=== PATIENT | male | born 1950 | race Caucasian/White ===

== ENCOUNTER 2017-06-24 14:11 | Emergency (ER) | payer MEDICARE ==
[2017-06-24 15:50] LABS: APPEARANCE,URINE Clear (CLEAR); BILIRUBIN,URINE Negative (NEGATIVE); COLOR,URINE Yellow (YELLOW); GLUCOSE, URINE (UA) Negative (NEGATIVE); KETONES,URINE Negative (NEGATIVE); LEUKOCYTE ESTERASE ,URINE Moderate (NEGATIVE); NITRATE,URINE Negative (NEGATIVE); OCCULT BLOOD,URINE Negative (NEGATIVE); PROTEIN,URINE Negative (NEGATIVE)
[2017-06-24 15:56] LABS: AMPHET/METH SCREEN,URINE NEGATIVE (NEGATIVE); BARBITURATE SCREEN, URINE NEGATIVE (NEGATIVE); BENZODIAZEPINES SCREEN,URINE POSITIVE (NEGATIVE); CANNABINOID SCREEN,URINE NEGATIVE (NEGATIVE); COCAINE SCREEN,URINE NEGATIVE (NEGATIVE); OPIATE SCREEN,URINE NEGATIVE (NEGATIVE); PHENCYCLIDINE SCREEN,URINE NEGATIVE (NEGATIVE)
[2017-06-24 16:01] LABS: RBC,URINE None Seen /HPF (0-1)
[2017-06-24 16:02] LABS: BACTERIA,URINE None Seen /HPF (None Seen); SQUAMOUS EPITHELIAL CELL,UR 0-2 /HPF (0-2)
[2017-06-24] MEDS ORDERED: LIDOCAINE 5% TOPICAL PATCH TP ONE (16:06)
[2017-06-24] MEDS ORDERED: KETOROLAC TROMETHAMINE 30MG/ML ONE (16:06)
== END 2017-06-24 16:24 | disposition home or self-care (01) ==
LOC: EDH 14:11
DX: N30.00 Acute cystitis without hematuria (principal); M54.42 Lumbago with sciatica, left side; M54.41 Lumbago with sciatica, right side; J45.909 Unspecified asthma, uncomplicated; M10.9 Gout, unspecified; Z88.8 Allergy status to other drugs, medicaments and biological substances
CPT/HCPCS: 74176; 80305; 81001; 96372; 99285; J1885

== ENCOUNTER → 2017-08-11 | Outpatient (CLI) | payer MEDICARE | END | disposition home or self-care (01) | LOC: RAH 09:20 | PROVIDERS: ATTEND Family Medicine | DX: M47.896 Other spondylosis, lumbar region (principal); J45.909 Unspecified asthma, uncomplicated | CPT/HCPCS: 71046; 72100 ==

== ENCOUNTER 2018-07-01 17:41 | Emergency (ER) | payer MEDICARE ==
[~2018-07-01 17:41] MED LIST: ALBU18HF7 IH; ATOR10TA69 PO; GABA-531 PO; HYDR-4060 PO; OMEP20TA25 PO; ROPI0.5T5 PO; ZOLP5TAB2 PO
[2018-07-01 18:22] LABS: BASOPHILS % (AUTO) 1.6 % (0.0-5.0); EOSINOPHILS % (AUTO) 4.6 % (0.0-8.0); HEMATOCRIT 38.4 % (42-54); LYMPHOCYTES % (AUTO) 32.2 % (21.0-51.0); MEAN CORPUSCULAR HEMOGLOBIN 29.3 pg (27.0-33.0); MEAN CORPUSCULAR HGB CONC 34.1 g/dL (32.0-36.0); MEAN CORPUSCULAR VOLUME 85.9 fL (79-99); NEUTROPHILS % (AUTO) 54.6 % (40.0-77.0); PLATELET COUNT (AUTO) 294 K/uL (130-400); RED BLOOD CELL COUNT(AUTO) 4.47 MIL/uL (4.50-6.20); RED CELL DISTRIBUTION WIDTH 14.4 % (11.0-15.5); WHITE BLOOD COUNT (AUTO) 8.3 K/uL (4.8-10.8)
[2018-07-01 18:33] LABS: CREATININE 1.1 mg/dL (0.5-1.5); POTASSIUM 3.6 mmol/L (3.5-5.1)
[2018-07-01 18:38] LABS: ALBUMIN 3.4 g/dL (3.5-5.0); TOTAL PROTEIN, SERUM 6.5 g/dL (6.0-8.3)
[2018-07-01 18:39] LABS: INR 0.96 (0.85-1.15); PARTIAL THROMBOPLASTIN TIME 19.4 SEC (26.3-35.5); PROTHROMBIN TIME 10.1 SEC (9.6-11.6)
[2018-07-01] MEDS ORDERED: MORPHINE SULFATE 2 MG/ML 1ML SYG ONE (18:47)
[2018-07-01 18:54] LABS: APPEARANCE,URINE Clear (CLEAR); BILIRUBIN,URINE Negative (NEGATIVE); COLOR,URINE Yellow (YELLOW); GLUCOSE, URINE (UA) Negative (NEGATIVE); KETONES,URINE Negative (NEGATIVE); LEUKOCYTE ESTERASE ,URINE Trace (NEGATIVE); NITRATE,URINE Negative (NEGATIVE); OCCULT BLOOD,URINE Negative (NEGATIVE); PROTEIN,URINE Negative (NEGATIVE)
[2018-07-01 19:32] LABS: BACTERIA,URINE Rare /HPF (None Seen); MUCUS,URINE Moderate LPF (None Seen); RBC,URINE None Seen /HPF (0-1); SQUAMOUS EPITHELIAL CELL,UR 0-2 /HPF (0-2)
[2018-07-01] MEDS ORDERED: HYDROCODONE/ACETAMINOPHEN 5/325 MG TAB ONE (20:57)
== END 2018-07-01 21:15 | disposition home or self-care (01) ==
LOC: EDH 17:41
DX: R10.31 Right lower quadrant pain (principal); M54.5 Low back pain; J98.4 Other disorders of lung; M25.551 Pain in right hip; I10 Essential (primary) hypertension; E78.5 Hyperlipidemia, unspecified; J45.909 Unspecified asthma, uncomplicated; Z91.041 Radiographic dye allergy status
CPT/HCPCS: 36415; 71045; 74176; 80053; 81001; 82550; 83690; 84484; 85025; 85610; 85730; 93005; 96374

== ENCOUNTER 2018-07-02 10:30 | Emergency (ER) | payer MEDICARE ==
[2018-07-02] MEDS ORDERED: KETOROLAC TROMETHAMINE 30MG/ML ONE (11:01)
[2018-07-02 11:15] LABS: APPEARANCE,URINE Clear (CLEAR); BASOPHILS % (AUTO) 1.8 % (0.0-5.0); BILIRUBIN,URINE Negative (NEGATIVE); COLOR,URINE Yellow (YELLOW); EOSINOPHILS % (AUTO) 3.9 % (0.0-8.0); GLUCOSE, URINE (UA) Negative (NEGATIVE); HEMATOCRIT 39.1 % (42-54); KETONES,URINE Negative (NEGATIVE); LEUKOCYTE ESTERASE ,URINE Negative (NEGATIVE); LYMPHOCYTES % (AUTO) 22.5 % (21.0-51.0); MEAN CORPUSCULAR HGB CONC 34.7 g/dL (32.0-36.0); MEAN CORPUSCULAR VOLUME 86.5 fL (79-99); MONOCYTES % (AUTO) 6.9 % (3.0-13.0); NEUTROPHILS % (AUTO) 64.9 % (40.0-77.0); NITRATE,URINE Negative (NEGATIVE); NUCLEATED RED BLOOD CELLS 0.3 % (0.0-0.19); OCCULT BLOOD,URINE Negative (NEGATIVE); PLATELET COUNT (AUTO) 300 K/uL (130-400); PROTEIN,URINE Negative (NEGATIVE); RED BLOOD CELL COUNT(AUTO) 4.53 MIL/uL (4.50-6.20); WHITE BLOOD COUNT (AUTO) 7.2 K/uL (4.8-10.8)
[2018-07-02 11:23] LABS: AMPHET/METH SCREEN,URINE NEGATIVE (NEGATIVE); BARBITURATE SCREEN, URINE NEGATIVE (NEGATIVE); BENZODIAZEPINES SCREEN,URINE NEGATIVE (NEGATIVE); CANNABINOID SCREEN,URINE NEGATIVE (NEGATIVE); COCAINE SCREEN,URINE NEGATIVE (NEGATIVE); OPIATE SCREEN,URINE POSITIVE (NEGATIVE); PHENCYCLIDINE SCREEN,URINE NEGATIVE (NEGATIVE)
[2018-07-02 11:24] LABS: CREATININE 0.9 mg/dL (0.5-1.5); POTASSIUM 3.9 mmol/L (3.5-5.1)
[2018-07-02 11:29] LABS: ALBUMIN 3.4 g/dL (3.5-5.0); BILIRUBIN,TOTAL 1.5 mg/dL (0.2-1.0); TOTAL PROTEIN, SERUM 6.5 g/dL (6.0-8.3)
== END 2018-07-02 12:56 | disposition home or self-care (01) ==
LOC: EDH 10:30
DX: R10.9 Unspecified abdominal pain (principal); R63.0 Anorexia; I10 Essential (primary) hypertension; E78.5 Hyperlipidemia, unspecified; J45.909 Unspecified asthma, uncomplicated; I25.2 Old myocardial infarction; J44.9 Chronic obstructive pulmonary disease, unspecified; Z91.041 Radiographic dye allergy status; Z79.899 Other long term (current) drug therapy
CPT/HCPCS: 36415; 80053; 80305; 81003; 84484; 85025; 93005; 96374; 99285; J1885

== ENCOUNTER 2018-11-30 10:55 | Inpatient (IN) | payer MEDICARE ==
[~2018-11-30] VITALS: Ht 172.7 cm; Wt 98.6 kg
[2018-11-30] MEDS: METHYLPREDNISOLONE SOD SUCC 125MG/2ML VIAL IV SCH ×2 (03:00→15:00)
[2018-11-30] MEDS ORDERED: METHYLPREDNISOLONE SOD SUCC 125MG/2ML VIAL ONE (11:17)
[2018-11-30 11:18] LABS: BASOPHILS % (AUTO) 0.8 % (0.0-5.0); EOSINOPHILS % (AUTO) 1.8 % (0.0-8.0); HEMATOCRIT 36.5 % (42-54); LYMPHOCYTES % (AUTO) 11.1 % (21.0-51.0); MEAN CORPUSCULAR HEMOGLOBIN 29.6 pg (27.0-33.0); MEAN CORPUSCULAR VOLUME 87.2 fL (79-99); MONOCYTES % (AUTO) 6.7 % (3.0-13.0); NEUTROPHILS % (AUTO) 79.6 % (40.0-77.0); NUCLEATED RED BLOOD CELLS 0.1 % (0.0-0.19); PLATELET COUNT (AUTO) 277 K/uL (130-400); RED BLOOD CELL COUNT(AUTO) 4.18 MIL/uL (4.50-6.20); RED CELL DISTRIBUTION WIDTH 15.1 % (11.0-15.5); WHITE BLOOD COUNT (AUTO) 19.5 K/uL (4.8-10.8)
[2018-11-30] MEDS ORDERED: IPRATROPIUM/ALBUTEROL SULFATE 3 ML SOLUTION IH ONE ×2 (11:23→15:47)
[2018-11-30 11:39] LABS: INR 0.93 (0.85-1.15); PARTIAL THROMBOPLASTIN TIME 22.1 SEC (26.3-35.5); PROTHROMBIN TIME 9.8 SEC (9.6-11.6)
[2018-11-30 11:40] LABS: POTASSIUM 4.1 mmol/L (3.5-5.1)
[2018-11-30 11:45] LABS: ALBUMIN 3.2 g/dL (3.5-5.0); BILIRUBIN,TOTAL 0.6 mg/dL (0.2-1.0); TOTAL PROTEIN, SERUM 6.3 g/dL (6.0-8.3)
[2018-11-30 12:10] LABS: APPEARANCE,URINE Clear (CLEAR); BILIRUBIN,URINE Negative (NEGATIVE); COLOR,URINE Yellow (YELLOW); GLUCOSE, URINE (UA) Negative (NEGATIVE); KETONES,URINE Negative (NEGATIVE); LEUKOCYTE ESTERASE ,URINE Negative (NEGATIVE); NITRATE,URINE Negative (NEGATIVE); OCCULT BLOOD,URINE Negative (NEGATIVE); PROTEIN,URINE Negative (NEGATIVE)
[2018-11-30 12:44] LABS: B-TYPE NATRIURETIC PEPTIDE 18 pg/mL (0-100)
[2018-11-30] MEDS ORDERED: VANCOMYCIN 1GM+NS 250ML 250 ML IV ONE (13:01)
[2018-11-30] MEDS ORDERED: ZOSYN 3.375GM+NS 50ML 50 ML IV ONE (14:03)
[2018-11-30] MEDS ORDERED: GUAIFENESIN-DM 200/20 MG 10 ML PO PRN (15:00)
[2018-11-30] MEDS ORDERED: DIPHENHYDRAMINE HCL 25 MG CAPSULE PO PRN (15:00)
[2018-11-30] MEDS ORDERED: ZOLPIDEM TARTRATE 5 MG TAB PO PRN (15:00)
[2018-11-30] MEDS ORDERED: ACETAMINOPHEN-CODEINE 300/30MG TAB PO PRN (15:00)
[2018-11-30] MEDS ORDERED: MORPHINE SULFATE 2 MG/ML 1ML SYG IV PRN (15:00)
[2018-11-30] MEDS ORDERED: POTASSIUM CHLORIDE 20 MEQ ERTAB PO PRN (15:00)
[2018-11-30] MEDS ORDERED: NITROGLYCERIN 0.4 MG SL TAB SL PRN (15:00)
[2018-11-30] MEDS ORDERED: ONDANSETRON HCL 4 MG/2 ML VIAL IV PRN (15:00)
[2018-11-30] MEDS ORDERED: POTASSIUM CHLORIDE 20MEQ/100ML 100 ML IV PRN (15:00)
[2018-11-30] MEDS ORDERED: HYDRALAZINE HCL 20 MG/ML VIAL IV PRN (15:00)
[2018-11-30] MEDS ORDERED: ACETAMINOPHEN 325 MG TAB PO PRN ×2 (15:00)
[2018-11-30] MEDS ORDERED: POTASSIUM CHLORIDE 10% ELIXIR 20 MEQ/15 ML UDCUP PO PRN (15:00)
[2018-11-30] MEDS ORDERED: VANCOMYCIN PROTOCOL PER PHARMACY IV PRN (15:00)
[2018-11-30] MEDS ORDERED: MAGNESIUM 2GM PREMIX 50ML 50 ML IV PRN (15:00)
[2018-11-30] MEDS ORDERED: DiphenhydrAMINE HCL 50 MG/ML VIAL IV PRN (15:00)
[2018-11-30] MEDS ORDERED: LACTULOSE 20 GM/30 ML UDCUP PO PRN (15:00)
[2018-11-30] MEDS ORDERED: MAG HYDROX/AL HYDROX/SIMETH ES 30 ML SUSP UDCUP PO PRN (15:00)
[2018-11-30] MEDS ORDERED: COMPOUND IV REFRIGERATED 1 EACH IVSOLN MISC PRN (15:45)
[2018-11-30] MEDS: INSULIN HUMULIN R 100 UNIT/ML 3ML SQ SCH ×2 (16:30→21:00)
[2018-11-30 17:05] VITALS: BP 119/78
[2018-11-30 19:00] VITALS: BP 136/80
[2018-11-30] MEDS ORDERED: GABA300S PO (19:07)
[2018-11-30] MEDS ORDERED: ASPI-555 PO (19:07)
[2018-11-30] MEDS ORDERED: QUET50TA55 PO (19:07)
[2018-11-30] MEDS ORDERED: ICOS1CAP PO (19:07)
[2018-11-30] MEDS ORDERED: ALLO300T2 PO (19:07)
[2018-11-30] MEDS ORDERED: ROSU10TA28 PO (19:07)
[2018-11-30] MEDS ORDERED: ESCI20TA36 PO (19:07)
[2018-11-30] MEDS: BUDESONIDE 0.5 MG/2 ML INH IH SCH (19:12)
[2018-11-30] MEDS: IPRATROPIUM/ALBUTEROL SULFATE 3 ML SOLUTION IH SCH ×2 (19:12→22:37)
[2018-11-30] MEDS: ATORVASTATIN CALCIUM 10 MG TABLET PO SCH (22:21)
[2018-11-30] MEDS: ROPINIROLE HCL 0.25 MG TABLET PO SCH (22:21)
[2018-11-30] MEDS: ZOSYN 3.375GM+NS 50ML 50 ML IV SCH (22:22)
[2018-11-30] MEDS: VANCOMYCIN 1.5 GM in SODIUM CHLORIDE 0.9% 250 ML IV SCH (22:35)
[2018-12-01] VITALS: BP 139/80
[2018-12-01] MEDS: IPRATROPIUM/ALBUTEROL SULFATE 3 ML SOLUTION IH SCH ×6 (01:36→21:48)
[2018-12-01] MEDS ORDERED: METHYLPREDNISOLONE SOD SUCC 40MG/ML 1ML ONE (02:51)
[2018-12-01] MEDS ORDERED: METHYLPREDNISOLONE SOD SUCC 40MG/ML 1ML IVP SCH (03:00)
[2018-12-01 04:00] VITALS: BP_SYST 113; BP_SYST 139; BP_DIAS 66; BP_DIAS 95
[2018-12-01 05:08] LABS: BASOPHILS % (AUTO) 0.4 % (0.0-5.0); HEMATOCRIT 32.9 % (42-54); MEAN CORPUSCULAR HEMOGLOBIN 30.8 pg (27.0-33.0); MEAN CORPUSCULAR HGB CONC 34.4 g/dL (32.0-36.0); MEAN CORPUSCULAR VOLUME 89.4 fL (79-99); MONOCYTES % (AUTO) 2.7 % (3.0-13.0); NEUTROPHILS % (AUTO) 90.9 % (40.0-77.0); PLATELET COUNT (AUTO) 284 K/uL (130-400); RED BLOOD CELL COUNT(AUTO) 3.68 MIL/uL (4.50-6.20); RED CELL DISTRIBUTION WIDTH 15.2 % (11.0-15.5); WHITE BLOOD COUNT (AUTO) 13.1 K/uL (4.8-10.8)
[2018-12-01] MEDS: ZOSYN 3.375GM+NS 50ML 50 ML IV SCH ×3 (05:10→22:45)
[2018-12-01 05:27] LABS: ALANINE AMINOTRANSFERASE 28 U/L (12-78); ALBUMIN 3.1 g/dL (3.5-5.0); ASPARTATE AMINOTRANSFERASE 12 U/L (10-37); BILIRUBIN,TOTAL 0.5 mg/dL (0.2-1.0); CARBON DIOXIDE 25 mmol/L (21-32); CHLORIDE 106 mmol/L (101-111); CREATININE 1.2 mg/dL (0.5-1.5); GLOMERULAR FILTR. RATE CALC 64 mL/min (>60); GLUCOSE,RANDOM 311 mg/dL (70-105); PHOSPHORUS 2.9 mg/dL (2.5-4.9); POTASSIUM 4.1 mmol/L (3.5-5.1); SODIUM SERUM 140 mmol/L (136-145); TOTAL PROTEIN, SERUM 6.3 g/dL (6.0-8.3); UREA NITROGEN, BLOOD 17 mg/dL (7-18)
[2018-12-01 05:29] LABS: B-TYPE NATRIURETIC PEPTIDE 40 pg/mL (0-100)
[2018-12-01 05:38] LABS: INR 0.94 (0.85-1.15); PARTIAL THROMBOPLASTIN TIME 21.3 SEC (26.3-35.5); PROTHROMBIN TIME 9.7 SEC (9.6-11.6)
[2018-12-01] MEDS: BUDESONIDE 0.5 MG/2 ML INH IH SCH ×2 (06:52→18:48)
[2018-12-01] MEDS: INSULIN HUMULIN R 100 UNIT/ML 3ML SQ SCH ×4 (07:00→22:48)
[2018-12-01 08:03] VITALS: BP 121/78
[2018-12-01] MEDS: VANCOMYCIN 1.5 GM in SODIUM CHLORIDE 0.9% 250 ML IV SCH ×2 (09:35→22:46)
[2018-12-01] MEDS: PANTOPRAZOLE SODIUM 40 MG TABLET.DR PO SCH (09:37)
[2018-12-01 12:00] VITALS: BP 127/68
--- NOTE | 2018-12-01 15:35 | NUR ---
DCP CM met with pt discussed dc plans. Pt is independent prior to admission, lives at home w/daughter. Pt has a nebulizer machine. Denies any other equipments/services. Feels safe to go back home, daughter able to assist with transportation and needs as necessary. DC plan to home once stable. CM to cont to follow up. Addendum: 12/01/18 at 1536 by NICOLE COOLEY LVN CM Amended: Links added.
[2018-12-01 16:24] VITALS: BP 158/81
[2018-12-01 20:00] VITALS: BP 133/79
[2018-12-01] MEDS: METHYLPREDNISOLONE SOD SUCC 40MG/ML 1ML IVP SCH (22:44)
[2018-12-01] MEDS: ROPINIROLE HCL 0.25 MG TABLET PO SCH (22:48)
[2018-12-01] MEDS: ATORVASTATIN CALCIUM 10 MG TABLET PO SCH (22:48)
[2018-12-02] VITALS (7 sets, daily range): BP systolic 112–161; BP diastolic 57–84
[2018-12-02] MEDS: IPRATROPIUM/ALBUTEROL SULFATE 3 ML SOLUTION IH SCH ×6 (02:50→21:09)
[2018-12-02] MEDS: ZOSYN 3.375GM+NS 50ML 50 ML IV SCH ×3 (05:21→21:41)
[2018-12-02 05:37] LABS: BASOPHILS % (AUTO) 0.3 % (0.0-5.0); HEMATOCRIT 34.1 % (42-54); LYMPHOCYTES % (AUTO) 4.6 % (21.0-51.0); MEAN CORPUSCULAR HEMOGLOBIN 29.6 pg (27.0-33.0); MEAN CORPUSCULAR HGB CONC 33.8 g/dL (32.0-36.0); MEAN CORPUSCULAR VOLUME 87.5 fL (79-99); MONOCYTES % (AUTO) 2.5 % (3.0-13.0); NEUTROPHILS % (AUTO) 92.6 % (40.0-77.0); PLATELET COUNT (AUTO) 300 K/uL (130-400); RED BLOOD CELL COUNT(AUTO) 3.89 MIL/uL (4.50-6.20); RED CELL DISTRIBUTION WIDTH 15.9 % (11.0-15.5); WHITE BLOOD COUNT (AUTO) 23.3 K/uL (4.8-10.8)
[2018-12-02 05:51] LABS: CREATININE 1.1 mg/dL (0.5-1.5); POTASSIUM 4.4 mmol/L (3.5-5.1)
[2018-12-02] MEDS: BUDESONIDE 0.5 MG/2 ML INH IH SCH ×2 (06:18→18:37)
[2018-12-02] MEDS: INSULIN HUMULIN R 100 UNIT/ML 3ML SQ SCH ×4 (06:40→21:44)
[2018-12-02] MEDS: METHYLPREDNISOLONE SOD SUCC 40MG/ML 1ML IVP SCH (10:01)
[2018-12-02] MEDS: PANTOPRAZOLE SODIUM 40 MG TABLET.DR PO SCH (10:01)
[2018-12-02] MEDS: VANCOMYCIN 1.5 GM in SODIUM CHLORIDE 0.9% 250 ML IV SCH ×2 (10:03→21:41)
[2018-12-02] MEDS: PREDNISONE 10 MG TABLET PO SCH (18:00)
[2018-12-02] MEDS: ROPINIROLE HCL 0.25 MG TABLET PO SCH (21:42)
[2018-12-02] MEDS: ATORVASTATIN CALCIUM 10 MG TABLET PO SCH (21:42)
[2018-12-03] MEDS: IPRATROPIUM/ALBUTEROL SULFATE 3 ML SOLUTION IH SCH ×4 (01:11→14:16)
[2018-12-03 03:00] VITALS: BP 108/71
[2018-12-03] MEDS: ZOSYN 3.375GM+NS 50ML 50 ML IV SCH ×2 (04:44→13:54)
[2018-12-03] MEDS: INSULIN HUMULIN R 100 UNIT/ML 3ML SQ SCH ×3 (05:51→16:46)
[2018-12-03 06:11] LABS: BASOPHILS % (AUTO) 0.2 % (0.0-5.0); HEMATOCRIT 32.3 % (42-54); LYMPHOCYTES % (AUTO) 13.2 % (21.0-51.0); MEAN CORPUSCULAR HEMOGLOBIN 30.5 pg (27.0-33.0); MEAN CORPUSCULAR HGB CONC 34.6 g/dL (32.0-36.0); MEAN CORPUSCULAR VOLUME 88.1 fL (79-99); MONOCYTES % (AUTO) 7.5 % (3.0-13.0); NEUTROPHILS % (AUTO) 79.1 % (40.0-77.0); NUCLEATED RED BLOOD CELLS 0.1 % (0.0-0.19); PLATELET COUNT (AUTO) 311 K/uL (130-400); RED BLOOD CELL COUNT(AUTO) 3.66 MIL/uL (4.50-6.20); WHITE BLOOD COUNT (AUTO) 17.6 K/uL (4.8-10.8)
[2018-12-03 06:15] LABS: CREATININE 1.1 mg/dL (0.5-1.5); POTASSIUM 3.8 mmol/L (3.5-5.1)
[2018-12-03] MEDS: BUDESONIDE 0.5 MG/2 ML INH IH SCH ×2 (06:25→06:35)
[2018-12-03] MEDS ORDERED: LEVOTHYROXINE 100 MCG TABLET ONE (06:48)
[2018-12-03 07:30] VITALS: BP 116/60
[2018-12-03] MEDS ORDERED: METHYLPREDNISOLONE SOD SUCC 40MG/ML 1ML IVP SCH (09:00)
[2018-12-03] MEDS: PREDNISONE 10 MG TABLET PO SCH (10:09)
[2018-12-03] MEDS: PANTOPRAZOLE SODIUM 40 MG TABLET.DR PO SCH (10:09)
[2018-12-03] MEDS: VANCOMYCIN 1.5 GM in SODIUM CHLORIDE 0.9% 250 ML IV SCH (10:10)
[2018-12-03 11:00] VITALS: BP 113/61
[2018-12-03 16:00] VITALS: BP 156/88
[2018-12-03] MEDS ORDERED: PRED10TA3 PO (17:12)
[2018-12-03] MEDS ORDERED: PRED20TA3 PO (17:12)
[2018-12-03] MEDS ORDERED: PRED2.5T PO (17:12)
[2018-12-03] MEDS ORDERED: PRED5SOL PO (17:12)
[2018-12-03] MEDS ORDERED: LEVO750T46 PO (17:13)
--- NOTE | 2018-12-03 19:45 | NUR ---
Pt d/c safely home, accompanied with family members, prescription given for levofloxacin 750mg daily for 3 days and medrol pack as directed, pt verbalized understanding of d/c instruction, all questions and concerns addressed.
[2018-12-04] MEDS ORDERED: PREDNISONE 20 MG TABLET PO SCH (09:00)
[2018-12-04] MEDS ORDERED: LEVOFLOXACIN 500 MG TABLET PO SCH (09:00)
[2018-12-06] MEDS ORDERED: PREDNISONE 5 MG TABLET PO SCH (09:00)
[2018-12-08] MEDS ORDERED: PREDNISONE 10 MG TABLET PO SCH (09:00)
[2018-12-10] MEDS ORDERED: PREDNISONE 5 MG TABLET PO SCH (09:00)
[2018-12-12] MEDS ORDERED: PREDNISONE 5 MG TABLET PO SCH (09:00)
== END 2018-12-03 18:25 | disposition home or self-care (01) | DRG 190 ==
LOC: EDH 10:55 → OBSVTOIN 15:00 → EDHIP 15:00 → 3CH 16:38
PROVIDERS: ADMIT Internal Medicine Pulmonary Disease; ATTEND Internal Medicine Pulmonary Disease
DX: J44.0 Chronic obstructive pulmonary disease with (acute) lower respiratory infection (principal); J18.9 Pneumonia, unspecified organism; J44.1 Chronic obstructive pulmonary disease with (acute) exacerbation; I25.10 Atherosclerotic heart disease of native coronary artery without angina pectoris; I10 Essential (primary) hypertension; E78.5 Hyperlipidemia, unspecified; G25.81 Restless legs syndrome; Z77.090 Contact with and (suspected) exposure to asbestos; M10.9 Gout, unspecified; Z87.891 Personal history of nicotine dependence; Z91.19 Patient's noncompliance with other medical treatment and regimen; Z91.041 Radiographic dye allergy status; Z84.89 Family history of other specified conditions
CPT/HCPCS: 36415; 71045; 71250; 78580; 80048; 80053; 80202; 81003; 82550; 82948; 83605; 83735; 83880; 84100; 84145; 84484; 85025; 85610; 85730; 87040; 87071; 87205; 87804; 93005; 93970; 94640; 94664; A9540; G0378; J1815; J2543; J2920; J2930; J3370; J7030; J7512

== ENCOUNTER 2019-03-06 11:19 | Emergency (ER) | payer MEDICARE ==
[~2019-03-06 11:19] MED LIST changes: -ALBU18HF7 IH; +ALLO300T2 PO; +ASPI-555 PO; -ATOR10TA69 PO; +ESCI20TA36 PO; -GABA-531 PO; +GABA300S PO; -HYDR-4060 PO; +ICOS1CAP PO; +LEVO750T46 PO; -OMEP20TA25 PO; +PRED10TA3 PO; +PRED2.5T PO; +PRED20TA3 PO; +PRED5SOL PO; +QUET50TA55 PO; -ROPI0.5T5 PO; +ROSU10TA28 PO; -ZOLP5TAB2 PO
[2019-03-06] MEDS ORDERED: KETOROLAC TROMETHAMINE 60 MG/2 ML VIAL ONE (12:33)
== END 2019-03-06 13:30 | disposition home or self-care (01) ==
LOC: EDH 11:19
DX: S80.02XA Contusion of left knee, initial encounter (principal); J44.9 Chronic obstructive pulmonary disease, unspecified; E78.5 Hyperlipidemia, unspecified; I10 Essential (primary) hypertension; I25.10 Atherosclerotic heart disease of native coronary artery without angina pectoris; G25.81 Restless legs syndrome; Z87.891 Personal history of nicotine dependence; Z91.041 Radiographic dye allergy status; X58.XXXA Exposure to other specified factors, initial encounter; Y93.89 Activity, other specified; Y92.098 Other place in other non-institutional residence as the place of occurrence of the external cause; Y99.8 Other external cause status
CPT/HCPCS: 29505; 73562; 96372; 99284; J1885

== ENCOUNTER 2019-05-02 04:42 | Observation (INO) | payer MEDICARE ==
[~2019-05-02] VITALS: Ht 172.7 cm; Wt 99.9 kg
[~2019-05-02 04:42] MED LIST changes: +ASPI-1005 PO; -ASPI-555 PO; +ATOR40TA69 PO; -ICOS1CAP PO; -LEVO750T46 PO; +LISI-617 PO; +METO25 PO; -PRED10TA3 PO; -PRED2.5T PO; -PRED20TA3 PO; -PRED5SOL PO; -ROSU10TA28 PO; +TICA90TA PO
[2019-05-02] MEDS ORDERED: METHYLPREDNISOLONE SOD SUCC 125MG/2ML VIAL ONE (05:06)
[2019-05-02 05:11] LABS: BASOPHILS % (AUTO) 0.8 % (0.0-5.0); EOSINOPHILS % (AUTO) 3.6 % (0.0-8.0); HEMATOCRIT 34.5 % (42-54); LYMPHOCYTES % (AUTO) 21.9 % (21.0-51.0); MEAN CORPUSCULAR HEMOGLOBIN 28.9 pg (27.0-33.0); MEAN CORPUSCULAR HGB CONC 32.5 g/dL (32.0-36.0); MEAN CORPUSCULAR VOLUME 88.9 fL (79-99); MONOCYTES % (AUTO) 4.4 % (3.0-13.0); NEUTROPHILS % (AUTO) 68.8 % (40.0-77.0); PLATELET COUNT (AUTO) 360 K/uL (130-400); RED BLOOD CELL COUNT(AUTO) 3.88 MIL/uL (4.50-6.20); RED CELL DISTRIBUTION WIDTH 14.4 % (11.0-15.5); WHITE BLOOD COUNT (AUTO) 7.8 K/uL (4.8-10.8)
[2019-05-02 05:20] LABS: CREATININE 1.2 mg/dL (0.5-1.5); POTASSIUM 3.6 mmol/L (3.5-5.1)
[2019-05-02 05:22] LABS: INR 0.93 (0.85-1.15); PARTIAL THROMBOPLASTIN TIME 21.5 SEC (26.3-35.5); PROTHROMBIN TIME 10.1 SEC (9.6-11.6)
[2019-05-02 05:25] LABS: ALBUMIN 3.3 g/dL (3.5-5.0); BILIRUBIN,TOTAL 0.6 mg/dL (0.2-1.0); TOTAL PROTEIN, SERUM 6.4 g/dL (6.0-8.3)
[2019-05-02 05:32] LABS: B-TYPE NATRIURETIC PEPTIDE 70 pg/mL (0-100)
[2019-05-02] MEDS ORDERED: IPRATROPIUM/ALBUTEROL SULFATE 3 ML SOLUTION IH ONE ×2 (06:14→10:16)
[2019-05-02] MEDS: METHYLPREDNISOLONE SOD SUCC 125MG/2ML VIAL IVP SCH ×3 (07:00→17:47)
[2019-05-02] MEDS: ENOXAPARIN SODIUM 40 MG/0.4 ML SYRINGE SQ SCH ×2 (09:00→21:11)
[2019-05-02] MEDS: FAMOTIDINE/PF 20 MG/2 ML VIAL IV SCH ×2 (09:00→21:11)
[2019-05-02] MEDS ORDERED: ENOXAPARIN SODIUM 40 MG/0.4 ML SYRINGE SQ ONE (10:21)
[2019-05-02] MEDS: IPRATROPIUM/ALBUTEROL SULFATE 3 ML SOLUTION IH SCH ×3 (10:21→23:32)
[2019-05-02] MEDS ORDERED: FAMOTIDINE/PF 20 MG/2 ML VIAL IV ONE (10:22)
[2019-05-02] MEDS: GABAPENTIN 300 MG CAPSULE PO SCH (17:00)
[2019-05-02] MEDS ORDERED: METHYLPREDNISOLONE SOD SUCC 40MG/ML 1ML ONE (17:41)
[2019-05-02] MEDS ORDERED: GABAPENTIN 300 MG CAPSULE ONE (17:54)
[2019-05-02 19:43] VITALS: BP 142/77
[2019-05-02] MEDS ORDERED: ATORVASTATIN CALCIUM 40 MG TABLET PO SCH (21:00)
[2019-05-02] MEDS ORDERED: ALLOPURINOL 300 MG TABLET PO SCH (21:00)
[2019-05-02] MEDS ORDERED: QUETIAPINE FUMARATE 25 MG TAB PO SCH (21:00)
[2019-05-02] MEDS: TICAGRELOR 90 MG TABLET PO SCH (21:10)
[2019-05-02] MEDS: METOPROLOL TARTRATE 25 MG TAB PO SCH (21:10)
[2019-05-02 23:14] VITALS: BP 108/58
[2019-05-03] MEDS: METHYLPREDNISOLONE SOD SUCC 125MG/2ML VIAL IVP SCH ×2 (01:36→05:48)
[2019-05-03 03:37] VITALS: BP 100/49
[2019-05-03] MEDS ORDERED: PNEUMOCOCCAL VACCINE POLYVALENT 0.5 ML/VIAL [PPV] IM ONE (05:45)
[2019-05-03] MEDS: GABAPENTIN 300 MG CAPSULE PO SCH ×2 (05:49→11:34)
[2019-05-03] MEDS: IPRATROPIUM/ALBUTEROL SULFATE 3 ML SOLUTION IH SCH ×2 (06:13→10:45)
[2019-05-03] MEDS ORDERED: PNEUMOCOCCAL VACCINE POLYVALENT 0.5 ML/VIAL [PPV] IM SCH (06:15)
[2019-05-03 07:34] VITALS: BP 111/67
--- NOTE | 2019-05-03 07:45 | NUR ---
ASSESSMENT PT IS AAOX3 DENIES CP DENIES SOB DENIES NV NO COMPLAINTS RESTING IN BED. BREATHING PATTERN IS EVEN AND UNLABORED. CALL LIGHT WITHIN REACH.
[2019-05-03] MEDS: METOPROLOL TARTRATE 25 MG TAB PO SCH (07:46)
[2019-05-03] MEDS: TICAGRELOR 90 MG TABLET PO SCH (07:46)
[2019-05-03] MEDS: ENOXAPARIN SODIUM 40 MG/0.4 ML SYRINGE SQ SCH (07:47)
[2019-05-03] MEDS: FAMOTIDINE/PF 20 MG/2 ML VIAL IV SCH (07:47)
[2019-05-03] MEDS ORDERED: LISINOPRIL 5 MG TABLET PO SCH (09:00)
[2019-05-03] MEDS ORDERED: CITALOPRAM 20 MG TABLET PO SCH (09:00)
[2019-05-03] MEDS ORDERED: ASPIRIN 81MG TAB.CHEW PO SCH (09:00)
--- NOTE | 2019-05-03 10:52 | NUR ---
Status Case discussed w/ [facility]. States will order home O2 eval and possible dc. CD
[2019-05-03 11:35] VITALS: BP 137/62
[2019-05-03] MEDS ORDERED: FLU VACC QS2019-20 36MOS UP/PF 60 MCG/0.5 ML ML IM ONE (14:45)
[2019-05-03] MEDS ORDERED: FLU VACC QS2019-20 36MOS UP/PF 60 MCG/0.5 ML ML IM SCH (14:45)
--- NOTE | 2019-05-03 15:03 | NUR ---
DISCHARGE PATIENT VERBALIZES DC INSTRUCTIONS UNDERSTANDING AGREE TO FOLLOW UP WITH PRIMARY AND MAKE APPOINTMENT FOR SENIOR H[employer] REPRESENTATIVE ORDERED. AGREES TO TAKE MEDS ORDERED. ALL QUESTIONS ANSWERED, PIV REMOVED CATH TIPS INTACT, TELE PACK REMOVED. ALL BELONGINGS GATHERED. DOWN VIA WC TO VEHICLE WITH FAMILY AND NURSE AIDE.
--- NOTE | 2019-05-03 15:36 | NUR ---
[id number] patient signed GRIER Letter, I faxed GRIER Letter to [phone] and placed in chart under consent tab
[2019-05-03] MEDS ORDERED: METHYLPREDNISOLONE SOD SUCC 40MG/ML 1ML IVP SCH (21:00)
[2019-07-03] MEDS ORDERED: ICOS1CAP PO (13:53)
[2019-07-03] MEDS ORDERED: NIAC100045 PO (13:53)
[2019-07-03] MEDS ORDERED: ROSU20TA31 PO (13:53)
[2019-07-03] MEDS ORDERED: ASPI-556 PO (13:53)
[2019-07-03] MEDS ORDERED: LISI2.5T2 PO (13:53)
[2019-07-03] MEDS ORDERED: METO25TA6 PO (13:54)
[2019-07-03] MEDS ORDERED: ATOR40TA71 PO (13:54)
== END 2019-05-03 15:30 | disposition home or self-care (01) ==
LOC: EDH 04:42 → EDHIP 06:48 → 2DH 19:52
PROVIDERS: ADMIT Internal Medicine; ATTEND Internal Medicine
DX: J44.1 Chronic obstructive pulmonary disease with (acute) exacerbation (principal); I21.19 ST elevation (STEMI) myocardial infarction involving other coronary artery of inferior wall; I25.2 Old myocardial infarction; E66.9 Obesity, unspecified; E78.5 Hyperlipidemia, unspecified; G20 Parkinson's disease; G25.81 Restless legs syndrome; I10 Essential (primary) hypertension; K57.92 Diverticulitis of intestine, part unspecified, without perforation or abscess without bleeding; M10.9 Gout, unspecified; Z23 Encounter for immunization; Z98.61 Coronary angioplasty status; Z79.899 Other long term (current) drug therapy; Z91.041 Radiographic dye allergy status
CPT/HCPCS: 36415; 71045; 78582; 80053; 82550; 83880; 84484; 85025; 85378; 85610; 85730; 90732; 93005; 93970; 94640 ×5; 94664; 94760 ×2; 96372 ×2; 96374; 96375; 96376; 99285; A9540; A9558; G0008; G0009; G0378 ×19; J1650 ×3; J2920; J2930 ×3; J3490 ×3; Q2035

== ENCOUNTER 2019-07-04 05:36 | Observation (INO) | payer MEDICARE ==
[2019-07-04] VITALS (35 sets, daily range): BP systolic 107–136; BP diastolic 40–87
[~2019-07-04] VITALS: Ht 172.7 cm; Wt 98.9 kg
[~2019-07-04 05:36] MED LIST changes: -ASPI-1005 PO; +ASPI-555 PO; -ATOR40TA69 PO; +ATOR40TA71 PO; +ICOS1CAP PO; -LISI-617 PO; +LISI2.5T2 PO; -METO25 PO; +METO25TA6 PO; +NIAC100045 PO; +ROSU20TA31 PO
[2019-07-04 07:15] LABS: BASOPHILS % (AUTO) 0.4 % (0.0-5.0); HEMATOCRIT 34.1 % (42-54); LYMPHOCYTES % (AUTO) 9.3 % (21.0-51.0); MEAN CORPUSCULAR HEMOGLOBIN 28.7 pg (27.0-33.0); MEAN CORPUSCULAR HGB CONC 32.3 g/dL (32.0-36.0); MONOCYTES % (AUTO) 2.3 % (3.0-13.0); NEUTROPHILS % (AUTO) 87.2 % (40.0-77.0); PLATELET COUNT (AUTO) 422 K/uL (130-400); RED BLOOD CELL COUNT(AUTO) 3.83 MIL/uL (4.50-6.20); RED CELL DISTRIBUTION WIDTH 15.8 % (11.0-15.5); WHITE BLOOD COUNT (AUTO) 13.1 K/uL (4.8-10.8)
[2019-07-04 07:17] LABS: APPEARANCE,URINE Clear (CLEAR); BILIRUBIN,URINE Negative (NEGATIVE); COLOR,URINE Yellow (YELLOW); GLUCOSE, URINE (UA) Negative (NEGATIVE); KETONES,URINE Negative (NEGATIVE); LEUKOCYTE ESTERASE ,URINE Negative (NEGATIVE); NITRATE,URINE Negative (NEGATIVE); OCCULT BLOOD,URINE Negative (NEGATIVE); PH,URINE 5.5 (5.0-8.0); PROTEIN,URINE Negative (NEGATIVE)
[2019-07-04 07:28] LABS: CREATININE 1.1 mg/dL (0.5-1.5); POTASSIUM 4.2 mmol/L (3.5-5.1)
[2019-07-04 07:40] LABS: INR 0.97 (0.85-1.15); PARTIAL THROMBOPLASTIN TIME 21.8 SEC (26.3-35.5); PROTHROMBIN TIME 10.5 SEC (9.6-11.6)
[2019-07-04] MEDS ORDERED: IOHEXOL-350 75 ML VIAL IV ONE (08:45)
[2019-07-04] MEDS ORDERED: MIDAZOLAM HCL 1 MG/ML 2ML VIAL ONE (08:45)
[2019-07-04] MEDS ORDERED: SODIUM BICARB 50MEQ 50ML VIAL ONE (08:45)
[2019-07-04] MEDS ORDERED: NITROGLYCERIN 2 MG/VIAL VIAL IV ONE (08:45)
[2019-07-04] MEDS ORDERED: LIDOCAINE HCL 2% 20ML ONE (08:45)
[2019-07-04] MEDS ORDERED: MEPERIDINE-PF 25 MG/ML SYG ONE (08:45)
[2019-07-04] MEDS ORDERED: HEPARIN SODIUM 1000UNIT/ML 10ML VIAL ONE (08:45)
[2019-07-04] MEDS ORDERED: IOHEXOL-350 50ML VIAL IV ONE (08:45)
[2019-07-04] MEDS ORDERED: IOHEXOL 350 MG/ML 100ML INFUS..BTL IV ONE (08:45)
[2019-07-04] MEDS ORDERED: SODIUM CHLORIDE 0.9% 1000ML 1,000 ML IV ONE (08:49)
[2019-07-04] MEDS ORDERED: METHYLPREDNISOLONE SOD SUCC 125MG/2ML VIAL ONE (09:19)
--- NOTE | 2019-07-04 11:00 | NUR ---
ASSESSMENT RECEIVED PT FROM PIPE WELDER STAFF. PT LYING FLAT. INSTRUCTED ON IMPORTANCE OF NOT MOVING RIGHT LEG. PT VERBALIZED UNDERSTANDING. DRSG WITH BLEEDING NOTED. PRESSURE APPLIED BY Mk SANDERS RN.
--- NOTE | 2019-07-04 11:45 | NUR ---
TRACEE KING NOTIFIED OF EXTRA PRESSURE APPLIED TO RIGHT GROIN AND DSTAT APPLIED. ORDERS RECEIVED TO CONTINUE TO MONITOR PT AND BEDREST INCREASED TO 7 HOURS.
--- NOTE | 2019-07-04 13:20 | NUR ---
ORDERS DR. KING NOTIFIED OF DSTAT X3 APPLIED AND PT STILL OOZING. ORDERS RECEIVED TO ADMIT PT TO DR. EATON, APPLY PRESSURE DRSG AND ORDER A SONO TO RIGHT FEMORAL GROIN.
--- NOTE | 2019-07-04 13:37 | NUR ---
US US HERE TO PERFORM ULTRASOUND OF RIGHT GROIN.
--- NOTE | 2019-07-04 15:00 | NUR ---
DRSG SECOND PRESSURE DRSG APPLIED TO SITE DUE TO OOZING, SMALL FIRMNESS. LIZABETH GONZALEZ MADE AWARE. INFORMED OF SONO RESULTS TO RIGHT GROIN. ORDERS RECEIVED TO HAVE A REPEAT SONO TOMORROW IN AM. PT TO HAVE A HEART HEALTHY DIET.
--- NOTE | 2019-07-04 15:15 | NUR ---
VAGAL WHILE ATTEMPTING TO FEED PT, PT BECAME DIAPHORETIC. TALKING. DENIES SOB, CHEST PAIN. BP OF 82/44. P 51. PT PLACED IN [place] AND 02 PLACED VIA NC AT 2L.
--- NOTE | 2019-07-04 15:24 | NUR ---
DR. FERNANDO KING NOTIFIED OF VAGAL RESPONSE. ORDERS RECEIVED TO GIVE ATROPINE 0.5MG IV .
[2019-07-04] MEDS ORDERED: ATROPINE SULFATE 0.1 MG/ML 10 ML SYG IVP ONE (15:27)
--- NOTE | 2019-07-04 15:30 | NUR ---
STATUS PT FEELS BETTER. BP 112/43 P 5. NO BLEEDING, OOZING NOTED TO SITE. NON-DIAPHORETIC. WILL CONTINUE TO MONITOR.
--- NOTE | 2019-07-04 16:15 | NUR ---
RECEIVED REPORT FROM BENJI GUERRERO , PT STABLE VITAL WNL, PT LAYING FLAT IN BED, PRESSURE DRESSING TO RT GROIN D/I. NO ACTIVE BLEEDING OR HEMATOM. PT HAS NO C/O PAIN TO CATH SITE. PERSONAL BELONGINGS AT BEDSIDE. CALL LIGHT IN REACH, BED RAILS UP X3 .
--- NOTE | 2019-07-04 16:15 | NUR ---
REPORT REPORT GIVEN TO Gretchen ARANDA RN.
--- NOTE | 2019-07-04 17:14 | NUR ---
LIZABETH MENDOZA ON PHONE. ORDERS RECEIVED TO ADMIT PT TO DR. MAGANA AND DRAW CBC NOW.
[2019-07-04 17:50] LABS: BASOPHILS % (AUTO) 0.1 % (0.0-5.0); HEMATOCRIT 31.5 % (42-54); LYMPHOCYTES % (AUTO) 8.6 % (21.0-51.0); MEAN CORPUSCULAR HEMOGLOBIN 28.9 pg (27.0-33.0); MEAN CORPUSCULAR HGB CONC 32.7 g/dL (32.0-36.0); MEAN CORPUSCULAR VOLUME 88.2 fL (79-99); NEUTROPHILS % (AUTO) 89.6 % (40.0-77.0); PLATELET COUNT (AUTO) 403 K/uL (130-400); RED BLOOD CELL COUNT(AUTO) 3.57 MIL/uL (4.50-6.20); RED CELL DISTRIBUTION WIDTH 15.8 % (11.0-15.5); WHITE BLOOD COUNT (AUTO) 13.7 K/uL (4.8-10.8)
--- NOTE | 2019-07-04 18:00 | NUR ---
DR. CHINO MAGANA HERE TO EVALUATE PT. NO NEW ORDERS GIVEN.
--- NOTE | 2019-07-04 18:46 | NUR ---
WRONG TIME CORRECT TIME 1255 Addendum: 07/04/19 at 1847 by ARLIN CHARLES RN RN Amended: Links added.
[2019-07-05 00:02] VITALS: BP 121/57
[2019-07-05 01:02] VITALS: BP 120/56
[2019-07-05 02:02] VITALS: BP 118/55
[2019-07-05 03:02] VITALS: BP 128/65
[2019-07-05 04:07] LABS: MEAN CORPUSCULAR HEMOGLOBIN 28.9 pg (27.0-33.0); MEAN CORPUSCULAR HGB CONC 32.5 g/dL (32.0-36.0); MEAN CORPUSCULAR VOLUME 88.9 fL (79-99); RED BLOOD CELL COUNT(AUTO) 3.6 MIL/uL (4.50-6.20); RED CELL DISTRIBUTION WIDTH 15.7 % (11.0-15.5); WHITE BLOOD COUNT (AUTO) 15.3 K/uL (4.8-10.8)
[2019-07-05 04:18] LABS: CREATININE 1.2 mg/dL (0.5-1.5); POTASSIUM 3.7 mmol/L (3.5-5.1)
[2019-07-05 08:18] VITALS: BP 134/82
[2019-07-05] MEDS ORDERED: CITALOPRAM 20 MG TABLET PO SCH (09:00)
[2019-07-05] MEDS ORDERED: FISH OIL 1000 MG/CAP PO SCH (09:00)
[2019-07-05] MEDS ORDERED: METOPROLOL TARTRATE 25 MG TAB PO SCH (09:00)
[2019-07-05] MEDS ORDERED: LISINOPRIL 2.5 MG TABLET PO SCH (09:00)
[2019-07-05] MEDS: GABAPENTIN 300 MG CAPSULE PO SCH ×2 (09:32→14:00)
[2019-07-05 11:54] VITALS: BP 116/64
--- NOTE | 2019-07-05 14:15 | NUR ---
HL REMOVED, CATHETER INTACT. DISCHARGE INSTRUCTIONS GIVEN, VERBALIZED UNDERSTANDING.
[2019-07-05] MEDS ORDERED: QUETIAPINE FUMARATE 25 MG TAB PO SCH (21:00)
[2019-07-05] MEDS ORDERED: NON-FORMULARY MEDICATION 1 EACH (Rosuvastatin Calcium 20 MG) PO SCH (21:00)
[2019-07-05] MEDS ORDERED: ATORVASTATIN CALCIUM 40 MG TABLET PO SCH (21:00)
[2019-07-05] MEDS ORDERED: ALLOPURINOL 300 MG TABLET PO SCH (21:00)
[2019-07-05] MEDS ORDERED: NIACIN 500 MG SRTAB PO SCH (21:00)
== END 2019-07-05 14:36 | disposition home or self-care (01) ==
LOC: DAH 05:36 → CLH 05:36 → DAHIP 13:30 → CLH 13:30 → DAHIP 17:19 → 4AH 21:13
PROVIDERS: ADMIT Internal Medicine; ATTEND Internal Medicine
DX: I97.610 Postprocedural hemorrhage of a circulatory system organ or structure following a cardiac catheterization (principal); I25.10 Atherosclerotic heart disease of native coronary artery without angina pectoris; I25.2 Old myocardial infarction; I11.0 Hypertensive heart disease with heart failure; I50.9 Heart failure, unspecified; E78.5 Hyperlipidemia, unspecified; M10.9 Gout, unspecified; M79.81 Nontraumatic hematoma of soft tissue; Z95.5 Presence of coronary angioplasty implant and graft; Z79.82 Long term (current) use of aspirin; Z79.899 Other long term (current) drug therapy; Z91.048 Other nonmedicinal substance allergy status
CPT/HCPCS: 36415 ×2; 71045; 71046; 76882 ×2; 80048 ×2; 81003; 84145; 85025 ×2; 85027; 85610; 85730; 93005; 93458; A4215; A4216; A4221; A4222; A4223 ×3; A4606; A4663; C1760; C1769; C1887; C1894; G0378 ×26; J0461; J1644 ×2; J2175; J2250; J2930; J3490 ×3; J7030; Q9965; Q9967; 99156; 99157

== ENCOUNTER 2020-09-09 12:40 | Inpatient (IN) | payer MEDICARE ==
[~2020-09-09] VITALS: Ht 174 cm; Wt 90.3 kg
[~2020-09-09 12:40] MED LIST changes: -ASPI-555 PO; +ASPI-556 PO; -ESCI20TA36 PO; +ESCI20TA38 PO; +QUET50TA22 PO; -QUET50TA55 PO
[2020-09-09 12:42] VITALS: BP 115/77
[2020-09-09 13:19] LABS: BASOPHILS % (AUTO) 0.3 % (0.0-5.0); HEMATOCRIT 30.8 % (42-54); LYMPHOCYTES % (AUTO) 18.6 % (21.0-51.0); MEAN CORPUSCULAR HEMOGLOBIN 28.9 pg (27.0-33.0); MEAN CORPUSCULAR HGB CONC 31.8 g/dL (32.0-36.0); MEAN CORPUSCULAR VOLUME 90.9 fL (79-99); MONOCYTES % (AUTO) 5.8 % (3.0-13.0); NEUTROPHILS % (AUTO) 74.3 % (40.0-77.0); PLATELET COUNT (AUTO) 184 K/uL (130-400); RED BLOOD CELL COUNT(AUTO) 3.39 MIL/uL (4.50-6.20); RED CELL DISTRIBUTION WIDTH 15.9 % (11.0-15.5); WHITE BLOOD COUNT (AUTO) 3.8 K/uL (4.8-10.8)
[2020-09-09 13:31] LABS: POTASSIUM 4.1 mmol/L (3.5-5.1)
[2020-09-09 13:37] LABS: BILIRUBIN,TOTAL 1.3 mg/dL (0.2-1.0); TOTAL PROTEIN, SERUM 5.7 g/dL (6.0-8.3)
[2020-09-09 14:39] VITALS: BP 98/47
[2020-09-09] MEDS ORDERED: ALBUTEROL INHALER 90MCG/INH IH PRN (15:30)
[2020-09-09] MEDS ORDERED: CLONIDINE HCL 0.1 MG TABLET PO PRN (15:30)
[2020-09-09] MEDS ORDERED: ACETAMINOPHEN 650 MG SUPPOSITORY RC PRN (15:30)
[2020-09-09] MEDS ORDERED: ACETAMINOPHEN 325 MG TAB PO PRN (15:30)
[2020-09-09] MEDS ORDERED: ONDANSETRON 4MG INJ IVP PRN (15:30)
[2020-09-09] MEDS: INSULIN HUMULIN R 100 UNIT/ML 3ML SQ SCH ×2 (16:30→20:40)
[2020-09-09 16:42] LABS: TROPONIN I 0.04 ng/mL (0.00-0.06)
[2020-09-09] MEDS: CEFTRIAXONE 1G VIAL IVP SCH (16:45)
[2020-09-09] MEDS: DEXAMETHASONE SOD PHOSPHATE 4 MG/ML 1ML VIAL IVP SCH (16:45)
[2020-09-09 17:22] VITALS: BP 110/53
[2020-09-09] MEDS ORDERED: ROPI0.5T7 PO (17:29)
[2020-09-09] MEDS ORDERED: ALLO300T2 PO (17:31)
[2020-09-09] MEDS: LACTATED RINGERS 1000ML 1,000 ML IV SCH (18:00)
[2020-09-09] MEDS ORDERED: IOHEXOL 350 MG/ML 100ML INFUS..BTL IV ONE (18:18)
[2020-09-09] MEDS: DOXYCYCLINE HYCLATE 100 MG TABLET PO SCH (20:36)
[2020-09-09 21:46] VITALS: BP 109/90
[2020-09-09 22:00] LABS: CREATINE KINASE, TOTAL 259 U/L (21-232); MYOGLOBIN 154 ng/mL (10-92); TROPONIN I < 0.04 ng/mL (0.00-0.06)
[2020-09-09 22:36] VITALS: BP 106/64
[2020-09-09 23:57] VITALS: BP 104/60
[2020-09-10] MEDS: CEFTRIAXONE 1G VIAL IVP SCH ×2 (03:19→15:51)
[2020-09-10 03:53] VITALS: BP 129/58
[2020-09-10 04:52] LABS: BASOPHILS % (AUTO) 0.5 % (0.0-5.0); HEMATOCRIT 29.9 % (42-54); LYMPHOCYTES % (AUTO) 27.3 % (21.0-51.0); MEAN CORPUSCULAR HGB CONC 32.4 g/dL (32.0-36.0); MEAN CORPUSCULAR VOLUME 89.5 fL (79-99); MONOCYTES % (AUTO) 7.5 % (3.0-13.0); NEUTROPHILS % (AUTO) 64.2 % (40.0-77.0); PLATELET COUNT (AUTO) 208 K/uL (130-400); RED BLOOD CELL COUNT(AUTO) 3.34 MIL/uL (4.50-6.20); RED CELL DISTRIBUTION WIDTH 15.5 % (11.0-15.5); WHITE BLOOD COUNT (AUTO) 1.9 K/uL (4.8-10.8)
[2020-09-10 04:56] LABS: HEMOGLOBIN A1C 5.2 % (4.0-6.0)
[2020-09-10 05:02] LABS: INR 1.1 (0.85-1.15); PROTHROMBIN TIME 11.9 SEC (9.6-11.6)
[2020-09-10 05:20] LABS: ALANINE AMINOTRANSFERASE 34 U/L (12-78); ALBUMIN 2.8 g/dL (3.5-5.0); ASPARTATE AMINOTRANSFERASE 44 U/L (10-37); BILIRUBIN,TOTAL 0.9 mg/dL (0.2-1.0); CARBON DIOXIDE 28 mmol/L (21-32); CHLORIDE 107 mmol/L (101-111); CREATINE KINASE, TOTAL 213 U/L (21-232); CREATININE 0.9 mg/dL (0.5-1.5); GLOMERULAR FILTR. RATE CALC 89 mL/min (>60); GLUCOSE,RANDOM 138 mg/dL (70-105); LACTATE DEHYDROGENASE 424 U/L (81-234); MYOGLOBIN 119 ng/mL (10-92); POTASSIUM 4.2 mmol/L (3.5-5.1); SODIUM SERUM 142 mmol/L (136-145); TOTAL PROTEIN, SERUM 5.6 g/dL (6.0-8.3); TROPONIN I < 0.04 ng/mL (0.00-0.06); UREA NITROGEN, BLOOD 16 mg/dL (7-18)
[2020-09-10] MEDS: INSULIN HUMULIN R 100 UNIT/ML 3ML SQ SCH ×4 (05:34→20:20)
[2020-09-10 08:00] VITALS: BP 130/64
[2020-09-10] MEDS: LACTATED RINGERS 1000ML 1,000 ML IV SCH ×2 (09:01→20:19)
[2020-09-10] MEDS: ENOXAPARIN SODIUM 40 MG/0.4 ML SYRINGE SQ SCH (09:02)
[2020-09-10] MEDS: DOXYCYCLINE HYCLATE 100 MG TABLET PO SCH ×2 (09:02→20:20)
[2020-09-10] MEDS: ASPIRIN 81MG CHEW TAB PO SCH (09:02)
[2020-09-10 11:00] VITALS: BP 116/65
[2020-09-10] MEDS: DEXAMETHASONE SOD PHOSPHATE 4 MG/ML 1ML VIAL IVP SCH (15:51)
[2020-09-10 16:00] VITALS: BP 124/62
[2020-09-10] MEDS ORDERED: ALPRAZOLAM 1 MG TAB PO PRN (20:00)
[2020-09-10 20:19] VITALS: BP 121/58
[2020-09-10 23:40] VITALS: BP 117/59
[2020-09-11] MEDS: CEFTRIAXONE 1G VIAL IVP SCH ×2 (03:37→14:11)
[2020-09-11 03:54] VITALS: BP 115/55
[2020-09-11 04:52] LABS: BASOPHILS % (AUTO) 0.2 % (0.0-5.0); HEMATOCRIT 30.2 % (42-54); LYMPHOCYTES % (AUTO) 16.8 % (21.0-51.0); MEAN CORPUSCULAR HEMOGLOBIN 28.7 pg (27.0-33.0); MEAN CORPUSCULAR HGB CONC 31.8 g/dL (32.0-36.0); MEAN CORPUSCULAR VOLUME 90.4 fL (79-99); MONOCYTES % (AUTO) 7.2 % (3.0-13.0); NEUTROPHILS % (AUTO) 75.1 % (40.0-77.0); PLATELET COUNT (AUTO) 240 K/uL (130-400); RED BLOOD CELL COUNT(AUTO) 3.34 MIL/uL (4.50-6.20); RED CELL DISTRIBUTION WIDTH 15.5 % (11.0-15.5); WHITE BLOOD COUNT (AUTO) 4.2 K/uL (4.8-10.8)
[2020-09-11 05:11] LABS: ALBUMIN 2.7 g/dL (3.5-5.0); BILIRUBIN,TOTAL 0.6 mg/dL (0.2-1.0); CRP QUANTITATIVE 18.8 mg/L (0.00-9.0); POTASSIUM 4.5 mmol/L (3.5-5.1); TOTAL PROTEIN, SERUM 5.5 g/dL (6.0-8.3)
[2020-09-11] MEDS: INSULIN HUMULIN R 100 UNIT/ML 3ML SQ SCH ×3 (05:35→15:48)
[2020-09-11 07:20] LABS: ABG BASE EXCESS 1.4 mmol/L (-2.0-3.0); ABG HCO3 25.2 mmol/L (21.0-28.0); ABG OXYGEN SATURATION 93.7 % (95.0-99.0); ABG PCO2 37 mmHg (35-48)
[2020-09-11] MEDS: DOXYCYCLINE HYCLATE 100 MG TABLET PO SCH (07:52)
[2020-09-11] MEDS: ASPIRIN 81MG CHEW TAB PO SCH (07:53)
[2020-09-11] MEDS: ENOXAPARIN SODIUM 40 MG/0.4 ML SYRINGE SQ SCH (07:53)
[2020-09-11 08:00] VITALS: BP 112/56
[2020-09-11 08:55] LABS: APPEARANCE,URINE Clear (CLEAR); BILIRUBIN,URINE Small (NEGATIVE); COLOR,URINE Dark Yellow (YELLOW); GLUCOSE, URINE (UA) Negative (NEGATIVE); KETONES,URINE Trace mg/dL (NEGATIVE); LEUKOCYTE ESTERASE ,URINE Negative (NEGATIVE); NITRATE,URINE Negative (NEGATIVE); OCCULT BLOOD,URINE Moderate (NEGATIVE); PH,URINE 5.5 (5.0-8.0); PROTEIN,URINE Trace mg/dL (NEGATIVE)
[2020-09-11 09:11] LABS: BACTERIA,URINE Rare /HPF (None Seen); SQUAMOUS EPITHELIAL CELL,UR Rare /HPF (0-2); WBC,URINE 0-1 /HPF (0-1)
[2020-09-11] MEDS: LACTATED RINGERS 1000ML 1,000 ML IV SCH (09:17)
[2020-09-11] MEDS ORDERED: DOXY100C2 PO (09:54)
[2020-09-11] MEDS ORDERED: DEXA6TAB PO (09:54)
[2020-09-11] MEDS ORDERED: IPRA3AMP24 IH (09:54)
[2020-09-11] MEDS ORDERED: ALBU8.5H8 IH (09:54)
[2020-09-11 12:00] VITALS: BP 118/51
[2020-09-11] MEDS ORDERED: QUETIAPINE FUMARATE 25 MG TAB PO SCH ×2 (13:30→21:00)
[2020-09-11] MEDS ORDERED: GABAPENTIN 100 MG CAPSULE PO SCH (14:00)
[2020-09-11] MEDS: DEXAMETHASONE SOD PHOSPHATE 4 MG/ML 1ML VIAL IVP SCH (14:11)
[2020-09-11 16:00] VITALS: BP 121/57
== END 2020-09-11 21:39 | disposition home or self-care (01) | DRG 177 ==
LOC: EDH 12:40 → OBSVTOIN 15:29 → EDHIP 15:29 → 2AH 22:12
PROVIDERS: ADMIT Internal Medicine Critical Care Medicine; ATTEND Internal Medicine Critical Care Medicine
DX: U07.1 COVID-19 (principal); J96.01 Acute respiratory failure with hypoxia; J12.9 Viral pneumonia, unspecified; J44.1 Chronic obstructive pulmonary disease with (acute) exacerbation; J44.0 Chronic obstructive pulmonary disease with (acute) lower respiratory infection; I10 Essential (primary) hypertension; E78.5 Hyperlipidemia, unspecified; E11.40 Type 2 diabetes mellitus with diabetic neuropathy, unspecified; E78.00 Pure hypercholesterolemia, unspecified; F17.200 Nicotine dependence, unspecified, uncomplicated; I25.10 Atherosclerotic heart disease of native coronary artery without angina pectoris; F32.9 Major depressive disorder, single episode, unspecified; F41.9 Anxiety disorder, unspecified; K57.90 Diverticulosis of intestine, part unspecified, without perforation or abscess without bleeding; M10.9 Gout, unspecified; R54 Age-related physical debility; K21.9 Gastro-esophageal reflux disease without esophagitis; Z79.02 Long term (current) use of antithrombotics/antiplatelets; Z79.82 Long term (current) use of aspirin; Z79.899 Other long term (current) drug therapy; Z95.5 Presence of coronary angioplasty implant and graft; Z91.041 Radiographic dye allergy status
CPT/HCPCS: 36415; 36600; 71045; 71250; 71275; 80053; 81001; 82550; 82728; 82803; 82948; 83036; 83615; 83874; 83880; 84145; 84484; 85025; 85378; 85610; 86140; 87040; 87077; 87186; 87635; 87804; 87880; 93005; 94667; 94760; C9803; G0378; J0696; J1100; J1650; J2405; J7120; Q9967

== ENCOUNTER 2021-04-28 15:33 | Emergency (ER) | payer OTHER, MEDICARE ==
[~2021-04-28 15:33] MED LIST changes: +ALBU8.5H8 IH; +DEXA6TAB PO; +DOXY100C5 PO; +IPRA3AMP24 IH; +LISI2.5T13 PO; -LISI2.5T2 PO; -QUET50TA22 PO; +QUET50TA24 PO; +ROPI0.5T7 PO; -TICA90TA PO
[2021-04-28 16:12] LABS: BASOPHILS % (AUTO) 0.7 % (0.0-5.0); EOSINOPHILS % (AUTO) 0.3 % (0.0-8.0); HEMATOCRIT 29.1 % (42-54); LYMPHOCYTES % (AUTO) 8.1 % (21.0-51.0); MEAN CORPUSCULAR HEMOGLOBIN 26.9 pg (27.0-33.0); MEAN CORPUSCULAR HGB CONC 31.3 g/dL (32.0-36.0); MEAN CORPUSCULAR VOLUME 86.1 fL (79-99); MONOCYTES % (AUTO) 9.5 % (3.0-13.0); PLATELET COUNT (AUTO) 293 K/uL (130-400); RED BLOOD CELL COUNT(AUTO) 3.38 MIL/uL (4.50-6.20); RED CELL DISTRIBUTION WIDTH 16.4 % (11.0-15.5); WHITE BLOOD COUNT (AUTO) 10.3 K/uL (4.8-10.8)
[2021-04-28 16:30] LABS: ALBUMIN 3.3 g/dL (3.5-5.0); BILIRUBIN,TOTAL 0.5 mg/dL (0.2-1.0); POTASSIUM 4.9 mmol/L (3.5-5.1); TOTAL PROTEIN, SERUM 5.8 g/dL (6.0-8.3)
[2021-04-28] MEDS ORDERED: ONDANSETRON 4MG INJ IVP ONE (16:30)
[2021-04-28] MEDS ORDERED: 0.9%NACL 1000ML 1,000 ML IV ONE (16:30)
[2021-04-28 16:39] LABS: APPEARANCE,URINE Clear (CLEAR); BILIRUBIN,URINE Negative (NEGATIVE); COLOR,URINE Dark Yellow (YELLOW); GLUCOSE, URINE (UA) Negative (NEGATIVE); KETONES,URINE Trace mg/dL (NEGATIVE); LEUKOCYTE ESTERASE ,URINE Small (NEGATIVE); NITRATE,URINE Negative (NEGATIVE); OCCULT BLOOD,URINE Small (NEGATIVE); PH,URINE 5.5 (5.0-8.0); PROTEIN,URINE Trace mg/dL (NEGATIVE)
[2021-04-28 16:49] LABS: CREATININE 1.2 mg/dL (0.5-1.5)
[2021-04-28 16:56] LABS: BACTERIA,URINE Few /HPF (None Seen); MUCUS,URINE Moderate LPF (None Seen); SQUAMOUS EPITHELIAL CELL,UR Few /HPF (0-2)
[2021-04-28] MEDS ORDERED: FAMO20TA8 PO (17:26)
[2021-04-28] MEDS ORDERED: MAG/ALUM/SIMETH 30 ML UDCUP PO SCH (18:00)
[2021-04-28 18:25] VITALS: BP 117/54
== END 2021-04-28 18:24 | disposition home or self-care (01) ==
LOC: EDH 15:33
DX: A08.4 Viral intestinal infection, unspecified (principal); J45.909 Unspecified asthma, uncomplicated; I25.10 Atherosclerotic heart disease of native coronary artery without angina pectoris; E78.00 Pure hypercholesterolemia, unspecified; Z79.52 Long term (current) use of systemic steroids; Z79.82 Long term (current) use of aspirin; Z79.899 Other long term (current) drug therapy; Z88.8 Allergy status to other drugs, medicaments and biological substances
CPT/HCPCS: 36415; 71045; 80053; 81001; 83690; 84484; 85025; 87088; 93005; 96361; 96374; 99284; J2405; J7030

== ENCOUNTER 2021-06-15 05:37 | Observation (INO) | payer OTHER, MEDICARE ==
[~2021-06-15] VITALS: Ht 174 cm; Wt 91.5 kg
[~2021-06-15 05:37] MED LIST changes: +FAMO20TA8 PO
[2021-06-15 06:20] LABS: BASOPHILS % (AUTO) 0.5 % (0.0-5.0); EOSINOPHILS % (AUTO) 1.7 % (0.0-8.0); HEMATOCRIT 34.3 % (42-54); LYMPHOCYTES % (AUTO) 9.1 % (21.0-51.0); MEAN CORPUSCULAR HEMOGLOBIN 25.6 pg (27.0-33.0); MEAN CORPUSCULAR HGB CONC 29.4 g/dL (32.0-36.0); MEAN CORPUSCULAR VOLUME 86.8 fL (79-99); MONOCYTES % (AUTO) 3.2 % (3.0-13.0); PLATELET COUNT (AUTO) 320 K/uL (130-400); RED BLOOD CELL COUNT(AUTO) 3.95 MIL/uL (4.50-6.20); RED CELL DISTRIBUTION WIDTH 16.5 % (11.0-15.5); WHITE BLOOD COUNT (AUTO) 12.7 K/uL (4.8-10.8)
[2021-06-15 06:30] LABS: ALBUMIN 3.2 g/dL (3.5-5.0); CREATININE 1.1 mg/dL (0.5-1.5); POTASSIUM 5.2 mmol/L (3.5-5.1); TOTAL PROTEIN, SERUM 5.9 g/dL (6.0-8.3)
[2021-06-15] MEDS ORDERED: NITROGLYCERIN 1GM OINT 1 INCH/1GM TD ONE (06:30)
[2021-06-15] MEDS ORDERED: ASPIRIN 325MG TAB PO ONE (06:30)
[2021-06-15 06:38] LABS: APPEARANCE,URINE CLEAR (CLEAR); BILIRUBIN,URINE NEGATIVE (NEGATIVE); COLOR,URINE YELLOW (YELLOW); GLUCOSE, URINE (UA) NEGATIVE (NEGATIVE); KETONES,URINE NEGATIVE (NEGATIVE); LEUKOCYTE ESTERASE ,URINE NEGATIVE (NEGATIVE); NITRATE,URINE NEGATIVE (NEGATIVE); OCCULT BLOOD,URINE NEGATIVE (NEGATIVE); PROTEIN,URINE NEGATIVE (NEGATIVE)
[2021-06-15] MEDS ORDERED: ALBUTEROL 0.083% 2.5 MG/3 ML INH IH PRN (07:00)
[2021-06-15] MEDS ORDERED: MORPHINE 2 MG SYG IVP PRN (07:00)
[2021-06-15] MEDS ORDERED: LABETALOL 20MG SYG IV PRN (07:00)
[2021-06-15] MEDS ORDERED: ACETAMINOPHEN 325 MG TAB PO PRN (07:00)
[2021-06-15] MEDS ORDERED: LACTULOSE 20 GM/30 ML UDCUP PO PRN (07:00)
[2021-06-15] MEDS ORDERED: HYDRALAZINE 20MG/ML VIAL IV PRN (07:00)
[2021-06-15] MEDS ORDERED: ONDANSETRON 4MG INJ IVP PRN (07:00)
[2021-06-15] MEDS: INSULIN HUMULIN R 100 UNIT/ML 3ML SQ SCH ×4 (07:30→20:16)
[2021-06-15 07:46] LABS: CREATINE KINASE, TOTAL 51 U/L (21-232); MYOGLOBIN 28 ng/mL (10-92)
[2021-06-15] MEDS: PANTOPRAZOLE 40 MG/VIAL IVP SCH (08:47)
[2021-06-15] MEDS: METOPROLOL TARTRATE 25 MG TAB PO SCH ×2 (08:47→20:23)
[2021-06-15] MEDS ORDERED: ENOXAPARIN SODIUM 100 MG/1 ML SQ SCH (09:00)
[2021-06-15] MEDS ORDERED: ENOXAPARIN SODIUM 1 MG/KG SQ SCH (09:00)
[2021-06-15] MEDS ORDERED: SODIUM ZIRCONIUM CYCLOSILICATE 5 GM POWD.PACK PO SCH (10:30)
[2021-06-15] MEDS ORDERED: IOHEXOL-350 75 ML VIAL IV ONE (11:36)
[2021-06-15] MEDS: DOXYCYCLINE 100MG+NS 250ML IV SCH (14:47)
[2021-06-15] MEDS ORDERED: PREDNISONE 20 MG TABLET PO ONE (15:30)
[2021-06-15] MEDS ORDERED: BUDESONIDE 0.25 MG/2 ML INH IH ONE (18:47)
[2021-06-15] MEDS: ALBUTEROL 0.083% 2.5 MG/3 ML INH IH SCH ×2 (18:48→23:19)
[2021-06-15] MEDS: BUDESONIDE 0.25 MG/2 ML INH IH SCH (19:10)
[2021-06-15] MEDS: ENOXAPARIN SODIUM 40 MG/0.4 ML SYRINGE SQ SCH (20:23)
[2021-06-15] MEDS ORDERED: SIMVASTATIN 20 MG TABLET PO SCH (21:00)
[2021-06-16 00:10] VITALS: BP 132/66
[2021-06-16] MEDS ORDERED: 0.9% NACL 250ML 250 ML ONE (03:02)
[2021-06-16] MEDS: DOXYCYCLINE 100MG+NS 250ML IV SCH (03:22)
[2021-06-16 04:35] VITALS: BP 135/68
[2021-06-16 05:30] LABS: HEMATOCRIT 29.9 % (42-54); MEAN CORPUSCULAR HEMOGLOBIN 26.8 pg (27.0-33.0); MEAN CORPUSCULAR HGB CONC 31.8 g/dL (32.0-36.0); MEAN CORPUSCULAR VOLUME 84.5 fL (79-99); RED BLOOD CELL COUNT(AUTO) 3.54 MIL/uL (4.50-6.20); RED CELL DISTRIBUTION WIDTH 15.4 % (11.0-15.5); WHITE BLOOD COUNT (AUTO) 7.6 K/uL (4.8-10.8)
[2021-06-16 05:50] LABS: CREATININE 0.9 mg/dL (0.5-1.5); MAGNESIUM 1.9 mg/dL (1.80-2.40); PHOSPHORUS 3.4 mg/dL (2.5-4.9); POTASSIUM 3.8 mmol/L (3.5-5.1); THYROID STIMULATING HORMONE 1.17 uIU/mL (0.36-3.74)
[2021-06-16] MEDS: ALBUTEROL 0.083% 2.5 MG/3 ML INH IH SCH ×2 (06:25→11:05)
[2021-06-16] MEDS: BUDESONIDE 0.25 MG/2 ML INH IH SCH (06:26)
[2021-06-16] MEDS: INSULIN HUMULIN R 100 UNIT/ML 3ML SQ SCH ×2 (07:09→11:30)
[2021-06-16 08:00] VITALS: BP 123/54
[2021-06-16] MEDS: PANTOPRAZOLE 40 MG/VIAL IVP SCH (08:41)
[2021-06-16] MEDS: METOPROLOL TARTRATE 25 MG TAB PO SCH (08:43)
[2021-06-16] MEDS: ENOXAPARIN SODIUM 40 MG/0.4 ML SYRINGE SQ SCH (08:43)
[2021-06-16] MEDS ORDERED: ASPIRIN 81MG CHEW TAB PO SCH (09:00)
[2021-06-16] MEDS ORDERED: PREDNISONE 20 MG TABLET PO SCH (09:00)
[2021-06-16 12:00] VITALS: BP 125/47
== END 2021-06-16 16:40 | disposition home or self-care (01) ==
LOC: EDH 05:37 → EDHIP 06:48 → 3AH 06-16 00:33
PROVIDERS: ADMIT Internal Medicine Pulmonary Disease; ATTEND Internal Medicine Pulmonary Disease
DX: J44.0 Chronic obstructive pulmonary disease with (acute) lower respiratory infection (principal); J18.1 Lobar pneumonia, unspecified organism; J44.1 Chronic obstructive pulmonary disease with (acute) exacerbation; J96.01 Acute respiratory failure with hypoxia; R77.8 Other specified abnormalities of plasma proteins; E87.5 Hyperkalemia; I10 Essential (primary) hypertension; E11.9 Type 2 diabetes mellitus without complications; E78.5 Hyperlipidemia, unspecified; R79.89 Other specified abnormal findings of blood chemistry; K21.9 Gastro-esophageal reflux disease without esophagitis; I25.2 Old myocardial infarction; G20 Parkinson's disease; E78.00 Pure hypercholesterolemia, unspecified; I21.4 Non-ST elevation (NSTEMI) myocardial infarction; Z79.899 Other long term (current) drug therapy; Z79.82 Long term (current) use of aspirin; Z90.49 Acquired absence of other specified parts of digestive tract; Z91.041 Radiographic dye allergy status; Z86.16 Personal history of COVID-19; Z95.5 Presence of coronary angioplasty implant and graft; Z99.81 Dependence on supplemental oxygen
CPT/HCPCS: 36415 ×2; 71045; 71275; 80048; 80053; 81003; 82550 ×3; 82948 ×5; 83735; 83874 ×3; 83880; 84100; 84145; 84443; 84484 ×4; 85025; 85027; 85378; 93005; 93306; 93356; 93970; 94640 ×5; 94667; 94668 ×3; 96365; 96366 ×2; 96372 ×2; 96375; 96376; 99285; C9113 ×2; G0378 ×31; J1650 ×3; J3490 ×2; J7050; Q9967

== ENCOUNTER 2021-07-24 10:41 | Emergency (ER) | payer OTHER, MEDICARE ==
[~2021-07-24] VITALS: Ht 175.3 cm; Wt 89.4 kg
[2021-07-24 11:03] LABS: EOSINOPHILS % (AUTO) 3.4 % (0.0-8.0); HEMATOCRIT 30.7 % (42-54); LYMPHOCYTES % (AUTO) 21.3 % (21.0-51.0); MEAN CORPUSCULAR HEMOGLOBIN 25.8 pg (27.0-33.0); MEAN CORPUSCULAR HGB CONC 30.6 g/dL (32.0-36.0); MEAN CORPUSCULAR VOLUME 84.1 fL (79-99); MONOCYTES % (AUTO) 8.6 % (3.0-13.0); NEUTROPHILS % (AUTO) 65.4 % (40.0-77.0); PLATELET COUNT (AUTO) 321 K/uL (130-400); RED BLOOD CELL COUNT(AUTO) 3.65 MIL/uL (4.50-6.20); RED CELL DISTRIBUTION WIDTH 16.2 % (11.0-15.5)
[2021-07-24 11:08] LABS: CREATININE 0.9 mg/dL (0.5-1.5); POTASSIUM 3.9 mmol/L (3.5-5.1)
[2021-07-24 11:10] LABS: INR 1.02 (0.85-1.15); PROTHROMBIN TIME 11.1 SEC (9.6-11.6)
[2021-07-24 11:12] LABS: ALBUMIN 3.4 g/dL (3.5-5.0); BILIRUBIN,TOTAL 1.6 mg/dL (0.2-1.0); TOTAL PROTEIN, SERUM 5.9 g/dL (6.0-8.3)
[2021-07-24 12:10] LABS: B-TYPE NATRIURETIC PEPTIDE 110 pg/mL (0-100)
[2021-07-24] MEDS ORDERED: MAG-55 PO (13:43)
[2021-07-24 13:53] VITALS: BP 136/75
== END 2021-07-24 14:01 | disposition home or self-care (01) ==
LOC: EDH 10:41
DX: K21.9 Gastro-esophageal reflux disease without esophagitis (principal); R07.89 Other chest pain; E78.00 Pure hypercholesterolemia, unspecified; I10 Essential (primary) hypertension; J44.9 Chronic obstructive pulmonary disease, unspecified; G20 Parkinson's disease; Z79.52 Long term (current) use of systemic steroids; Z79.82 Long term (current) use of aspirin; Z79.899 Other long term (current) drug therapy; Z88.8 Allergy status to other drugs, medicaments and biological substances; Z95.5 Presence of coronary angioplasty implant and graft
CPT/HCPCS: 36415; 71045; 80053; 83880; 84484; 85025; 85610; 93005

== ENCOUNTER 2021-07-28 13:58 | Emergency (ER) | payer OTHER, MEDICARE ==
[~2021-07-28] VITALS: Ht 172.7 cm; Wt 95.3 kg
[~2021-07-28 13:58] MED LIST changes: +MAG-55 PO
[2021-07-28 14:15] LABS: BASOPHILS % (AUTO) 0.8 % (0.0-5.0); EOSINOPHILS % (AUTO) 1.7 % (0.0-8.0); HEMATOCRIT 29.2 % (42-54); LYMPHOCYTES % (AUTO) 11.5 % (21.0-51.0); MEAN CORPUSCULAR HEMOGLOBIN 25.6 pg (27.0-33.0); MEAN CORPUSCULAR HGB CONC 30.5 g/dL (32.0-36.0); MEAN CORPUSCULAR VOLUME 83.9 fL (79-99); MONOCYTES % (AUTO) 6.6 % (3.0-13.0); NEUTROPHILS % (AUTO) 79.1 % (40.0-77.0); PLATELET COUNT (AUTO) 305 K/uL (130-400); RED BLOOD CELL COUNT(AUTO) 3.48 MIL/uL (4.50-6.20); RED CELL DISTRIBUTION WIDTH 15.7 % (11.0-15.5); WHITE BLOOD COUNT (AUTO) 11.5 K/uL (4.8-10.8)
[2021-07-28 14:29] LABS: POTASSIUM 3.9 mmol/L (3.5-5.1)
[2021-07-28 14:36] LABS: ALBUMIN 3.2 g/dL (3.5-5.0); BILIRUBIN,TOTAL 0.9 mg/dL (0.2-1.0); TOTAL PROTEIN, SERUM 5.7 g/dL (6.0-8.3)
[2021-07-28 15:05] LABS: APPEARANCE,URINE Cloudy (CLEAR); BILIRUBIN,URINE Small (NEGATIVE); COLOR,URINE Dark Yellow (YELLOW); GLUCOSE, URINE (UA) Negative (NEGATIVE); KETONES,URINE Trace mg/dL (NEGATIVE); LEUKOCYTE ESTERASE ,URINE Negative (NEGATIVE); NITRATE,URINE Negative (NEGATIVE); OCCULT BLOOD,URINE Negative (NEGATIVE); PH,URINE 6.5 (5.0-8.0); PROTEIN,URINE Trace mg/dL (NEGATIVE)
[2021-07-28 15:10] VITALS: BP 106/56
[2021-07-28 15:12] LABS: AMPHET/METH SCREEN,URINE NEGATIVE (NEGATIVE); BARBITURATE SCREEN, URINE NEGATIVE (NEGATIVE); BENZODIAZEPINES SCREEN,URINE POSITIVE (NEGATIVE); CANNABINOID SCREEN,URINE NEGATIVE (NEGATIVE); COCAINE SCREEN,URINE NEGATIVE (NEGATIVE); OPIATE SCREEN,URINE NEGATIVE (NEGATIVE); PHENCYCLIDINE SCREEN,URINE NEGATIVE (NEGATIVE)
[2021-07-28] MEDS ORDERED: LIDOCAINE HCL 2% VISCOUS 15 ML UDCUP PO ONE (15:30)
[2021-07-28] MEDS ORDERED: MAG/ALUM/SIMETH 30 ML UDCUP PO ONE (15:30)
[2021-07-28] MEDS ORDERED: DICYCLOMINE HCL 10 MG/5 ML ML PO ONE (15:30)
[2021-07-28 15:32] LABS: BACTERIA,URINE Few /HPF (None Seen); MUCUS,URINE Few LPF (None Seen); RBC,URINE 0-1 /HPF (0-1); SQUAMOUS EPITHELIAL CELL,UR Few /HPF (0-2); WBC,URINE 0-1 /HPF (0-1)
[2021-07-28] MEDS ORDERED: FAMO20TA8 PO (15:57)
== END 2021-07-28 15:36 | disposition home or self-care (01) ==
LOC: EDH 13:58
DX: K21.9 Gastro-esophageal reflux disease without esophagitis (principal); I25.10 Atherosclerotic heart disease of native coronary artery without angina pectoris; I10 Essential (primary) hypertension; I25.2 Old myocardial infarction; G20 Parkinson's disease; Z88.8 Allergy status to other drugs, medicaments and biological substances; Z79.899 Other long term (current) drug therapy; Z79.82 Long term (current) use of aspirin; Z98.890 Other specified postprocedural states
CPT/HCPCS: 36415; 71045; 80053; 80305; 81001; 84484; 85025; 93005

== ENCOUNTER 2021-08-08 15:23 | Emergency (ER) | payer OTHER, MEDICARE ==
[~2021-08-08] VITALS: Ht 172.7 cm; Wt 89.4 kg
[2021-08-08 15:53] LABS: BASOPHILS % (AUTO) 0.7 % (0.0-5.0); EOSINOPHILS % (AUTO) 2.7 % (0.0-8.0); HEMATOCRIT 31.9 % (42-54); LYMPHOCYTES % (AUTO) 20.2 % (21.0-51.0); MEAN CORPUSCULAR HEMOGLOBIN 25.5 pg (27.0-33.0); MEAN CORPUSCULAR HGB CONC 30.7 g/dL (32.0-36.0); MEAN CORPUSCULAR VOLUME 83.1 fL (79-99); MONOCYTES % (AUTO) 6.4 % (3.0-13.0); NEUTROPHILS % (AUTO) 69.6 % (40.0-77.0); PLATELET COUNT (AUTO) 339 K/uL (130-400); RED BLOOD CELL COUNT(AUTO) 3.84 MIL/uL (4.50-6.20); RED CELL DISTRIBUTION WIDTH 15.4 % (11.0-15.5); WHITE BLOOD COUNT (AUTO) 9.6 K/uL (4.8-10.8)
[2021-08-08] MEDS ORDERED: 0.9%NACL 1000ML 1,000 ML IV SCH (16:00)
[2021-08-08 16:08] LABS: CREATININE 1.1 mg/dL (0.5-1.5); POTASSIUM 3.4 mmol/L (3.5-5.1)
[2021-08-08 16:09] LABS: INR 1.05 (0.85-1.15); PROTHROMBIN TIME 11.4 SEC (9.6-11.6)
[2021-08-08 16:10] LABS: APPEARANCE,URINE CLEAR (CLEAR); BILIRUBIN,URINE SMALL (NEGATIVE); COLOR,URINE DARK YELLOW (YELLOW); GLUCOSE, URINE (UA) 100 mg/dL (NEGATIVE); KETONES,URINE 5 mg/dL (NEGATIVE); LEUKOCYTE ESTERASE ,URINE NEGATIVE (NEGATIVE); NITRATE,URINE NEGATIVE (NEGATIVE); OCCULT BLOOD,URINE NEGATIVE (NEGATIVE); PH,URINE 5.5 (5.0-8.0); PROTEIN,URINE 30 mg/dL (NEGATIVE)
[2021-08-08 16:12] LABS: ALBUMIN 3.6 g/dL (3.5-5.0); B-TYPE NATRIURETIC PEPTIDE 60 pg/mL (0-100); MAGNESIUM 1.7 mg/dL (1.80-2.40); TOTAL PROTEIN, SERUM 6.3 g/dL (6.0-8.3)
[2021-08-08 16:18] LABS: AMPHET/METH SCREEN,URINE NEGATIVE (NEGATIVE); BARBITURATE SCREEN, URINE NEGATIVE (NEGATIVE); BENZODIAZEPINES SCREEN,URINE POSITIVE (NEGATIVE); CANNABINOID SCREEN,URINE NEGATIVE (NEGATIVE); COCAINE SCREEN,URINE NEGATIVE (NEGATIVE); OPIATE SCREEN,URINE NEGATIVE (NEGATIVE); PHENCYCLIDINE SCREEN,URINE NEGATIVE (NEGATIVE)
[2021-08-08 16:20] LABS: BACTERIA,URINE Few /HPF (None Seen); MUCUS,URINE Moderate LPF (None Seen); SQUAMOUS EPITHELIAL CELL,UR Few /HPF (0-2)
[2021-08-08] MEDS ORDERED: POTASSIUM BICARB/CIT AC 25 MEQ TABLET.EFF PO ONE (17:00)
[2021-08-08] MEDS ORDERED: MAGNESIUM 2GM PREMIX 50ML 50 ML IV SCH (17:00)
[2021-08-08 17:17] VITALS: BP 132/54
== END 2021-08-08 18:13 | disposition home or self-care (01) ==
LOC: EDH 15:23
DX: T67.5XXA Heat exhaustion, unspecified, initial encounter (principal); I95.1 Orthostatic hypotension; D64.9 Anemia, unspecified; E87.6 Hypokalemia; E83.42 Hypomagnesemia; I10 Essential (primary) hypertension; I25.10 Atherosclerotic heart disease of native coronary artery without angina pectoris; Z79.52 Long term (current) use of systemic steroids; Z79.82 Long term (current) use of aspirin; Z79.899 Other long term (current) drug therapy; Z88.8 Allergy status to other drugs, medicaments and biological substances; Z95.5 Presence of coronary angioplasty implant and graft; X58.XXXA Exposure to other specified factors, initial encounter; Y93.89 Activity, other specified; Y92.89 Other specified places as the place of occurrence of the external cause; Y99.8 Other external cause status
CPT/HCPCS: 99284; 96365; 71045; 83735; 84484; 80053; 83880; 80305; 85025; 85610; 81001; 36415; 93005; J3475; J7030

== ENCOUNTER 2021-09-23 09:12 | Observation (INO) | payer OTHER, MEDICARE ==
[~2021-09-23] VITALS: Ht 175.3 cm; Wt 90.6 kg
[2021-09-23 10:05] LABS: APPEARANCE,URINE CLEAR (CLEAR); BILIRUBIN,URINE NEGATIVE (NEGATIVE); COLOR,URINE YELLOW (YELLOW); GLUCOSE, URINE (UA) NEGATIVE (NEGATIVE); KETONES,URINE NEGATIVE (NEGATIVE); LEUKOCYTE ESTERASE ,URINE NEGATIVE (NEGATIVE); NITRATE,URINE NEGATIVE (NEGATIVE); OCCULT BLOOD,URINE NEGATIVE (NEGATIVE); PROTEIN,URINE NEGATIVE (NEGATIVE)
[2021-09-23 10:05] LABS: BASOPHILS % (AUTO) 0.3 % (0.0-5.0); EOSINOPHILS % (AUTO) 0.2 % (0.0-8.0); HEMATOCRIT 26.7 % (42-54); LYMPHOCYTES % (AUTO) 4.1 % (21.0-51.0); MEAN CORPUSCULAR HEMOGLOBIN 25.2 pg (27.0-33.0); MEAN CORPUSCULAR HGB CONC 30.7 g/dL (32.0-36.0); MEAN CORPUSCULAR VOLUME 81.9 fL (79-99); MONOCYTES % (AUTO) 3.3 % (3.0-13.0); NEUTROPHILS % (AUTO) 91.5 % (40.0-77.0); PLATELET COUNT (AUTO) 288 K/uL (130-400); RED BLOOD CELL COUNT(AUTO) 3.26 MIL/uL (4.50-6.20); WHITE BLOOD COUNT (AUTO) 14.1 K/uL (4.8-10.8)
[2021-09-23 10:23] LABS: B-TYPE NATRIURETIC PEPTIDE 128 pg/mL (0-100)
[2021-09-23 10:43] LABS: ALBUMIN 3.2 g/dL (3.5-5.0); CREATININE 1.3 mg/dL (0.5-1.5); POTASSIUM 3.9 mmol/L (3.5-5.1); TOTAL PROTEIN, SERUM 5.8 g/dL (6.0-8.3)
[2021-09-23] MEDS ORDERED: CEFTRIAXONE 2GM VIAL ONE (10:59)
[2021-09-23] MEDS ORDERED: CEFTRIAXONE 2GM VIAL IVP ONE (11:00)
[2021-09-23] MEDS ORDERED: CLONIDINE HCL 0.1 MG TABLET PO PRN (11:30)
[2021-09-23] MEDS ORDERED: IPRATROPIUM/ALBUTEROL SULFATE 3 ML SOLUTION IH SCH (11:30)
[2021-09-23] MEDS ORDERED: TEMAZEPAM 15 MG CAPSULE PO PRN (11:30)
[2021-09-23] MEDS ORDERED: ONDANSETRON 4MG INJ IVP PRN (11:30)
[2021-09-23] MEDS ORDERED: DOCUSATE SODIUM 100 MG CAP PO PRN (11:30)
[2021-09-23] MEDS: LEVOFLOXACIN 500 MG/D5W 100 ML IV SCH (13:15)
[2021-09-23 15:01] VITALS: BP 118/55
[2021-09-23 16:00] VITALS: BP 118/55
[2021-09-23] MEDS: IPRATROPIUM/ALBUTEROL SULFATE 3 ML SOLUTION IH SCH ×2 (18:25→23:13)
[2021-09-23 21:19] VITALS: BP 98/44
[2021-09-24 00:19] VITALS: BP 103/59
[2021-09-24 03:48] VITALS: BP 109/43
[2021-09-24 04:03] LABS: BASOPHILS % (AUTO) 0.4 % (0.0-5.0); EOSINOPHILS % (AUTO) 1.8 % (0.0-8.0); LYMPHOCYTES % (AUTO) 15.6 % (21.0-51.0); MEAN CORPUSCULAR HEMOGLOBIN 24.8 pg (27.0-33.0); MEAN CORPUSCULAR VOLUME 82.8 fL (79-99); MONOCYTES % (AUTO) 5.9 % (3.0-13.0); NEUTROPHILS % (AUTO) 75.9 % (40.0-77.0); PLATELET COUNT (AUTO) 294 K/uL (130-400); RED BLOOD CELL COUNT(AUTO) 3.14 MIL/uL (4.50-6.20); RED CELL DISTRIBUTION WIDTH 17.4 % (11.0-15.5); WHITE BLOOD COUNT (AUTO) 10.3 K/uL (4.8-10.8)
[2021-09-24 04:11] LABS: PHOSPHORUS 3.3 mg/dL (2.5-4.9); POTASSIUM 3.5 mmol/L (3.5-5.1)
[2021-09-24] MEDS: IPRATROPIUM/ALBUTEROL SULFATE 3 ML SOLUTION IH SCH ×2 (06:23→11:01)
[2021-09-24 08:10] VITALS: BP 114/49
[2021-09-24] MEDS ORDERED: POLYETHYLENE GLYCOL 3350 17 GM POWD.PACK PO SCH (09:00)
[2021-09-24] MEDS ORDERED: ENOXAPARIN SODIUM 40 MG/0.4 ML SYRINGE SQ SCH (09:00)
[2021-09-24] MEDS ORDERED: PANTOPRAZOLE 40 MG TAB DR PO SCH (09:00)
[2021-09-24] MEDS: LEVOFLOXACIN 500 MG/D5W 100 ML IV SCH (09:13)
[2021-09-24 11:25] VITALS: BP 108/48
[2021-09-24] MEDS ORDERED: LEVO750T68 PO (12:47)
[2021-09-24 16:51] VITALS: BP 137/72
== END 2021-09-24 16:45 | disposition home or self-care (01) ==
LOC: EDH 09:12 → OBSVTOIN 11:27 → INTOOBSV 11:27 → EDHIP 11:27 → 4AH 14:12 → 4BH 14:16
PROVIDERS: ADMIT Internal Medicine; ATTEND Internal Medicine
DX: J96.01 Acute respiratory failure with hypoxia (principal); Z20.822 Contact with and (suspected) exposure to COVID-19; J69.0 Pneumonitis due to inhalation of food and vomit; J44.9 Chronic obstructive pulmonary disease, unspecified; I10 Essential (primary) hypertension; E78.5 Hyperlipidemia, unspecified; I25.10 Atherosclerotic heart disease of native coronary artery without angina pectoris; K21.9 Gastro-esophageal reflux disease without esophagitis; F41.8 Other specified anxiety disorders; D64.9 Anemia, unspecified; I25.2 Old myocardial infarction; G20 Parkinson's disease; E66.9 Obesity, unspecified; N28.9 Disorder of kidney and ureter, unspecified; R13.10 Dysphagia, unspecified; Z95.5 Presence of coronary angioplasty implant and graft; Z79.899 Other long term (current) drug therapy
CPT/HCPCS: 94640 ×5; 96365; 96375; 99285; 82550; 83874; 84484; 80053; 83880; 85025 ×2; 87040 ×2; 87804 ×2; 83605; 81003; 36415 ×2; 87635; 71045; 93005; 94664; 96372; 96366; 83735; 84100; 80048; 92610; G0378 ×28; C9803; J1956 ×2; J0696; J1650

== ENCOUNTER 2021-11-25 06:30 | Emergency (ER) | payer OTHER, MEDICARE ==
[~2021-11-25 06:30] MED LIST changes: -DEXA6TAB PO; -DOXY100C5 PO; +LEVO750T68 PO
[2021-11-25 07:00] LABS: BASOPHILS % (AUTO) 1.4 % (0.0-5.0); EOSINOPHILS % (AUTO) 6.2 % (0.0-8.0); HEMATOCRIT 27.4 % (42-54); LYMPHOCYTES % (AUTO) 34.3 % (21.0-51.0); MEAN CORPUSCULAR HEMOGLOBIN 23.6 pg (27.0-33.0); MEAN CORPUSCULAR HGB CONC 29.9 g/dL (32.0-36.0); MONOCYTES % (AUTO) 11.2 % (3.0-13.0); NEUTROPHILS % (AUTO) 46.5 % (40.0-77.0); PLATELET COUNT (AUTO) 320 K/uL (130-400); RED BLOOD CELL COUNT(AUTO) 3.47 MIL/uL (4.50-6.20); RED CELL DISTRIBUTION WIDTH 17.2 % (11.0-15.5); WHITE BLOOD COUNT (AUTO) 5.2 K/uL (4.8-10.8)
[2021-11-25 07:06] LABS: APPEARANCE,URINE CLEAR (CLEAR); BILIRUBIN,URINE NEGATIVE (NEGATIVE); COLOR,URINE YELLOW (YELLOW); GLUCOSE, URINE (UA) NEGATIVE (NEGATIVE); KETONES,URINE NEGATIVE (NEGATIVE); LEUKOCYTE ESTERASE ,URINE NEGATIVE Leu/uL (NEGATIVE); NITRATE,URINE NEGATIVE (NEGATIVE); OCCULT BLOOD,URINE SMALL (NEGATIVE); PH,URINE 6.5 (5.0-8.0); PROTEIN,URINE 10 mg/dL (NEGATIVE); UROBILINOGEN,URINE 6 mg/dL (0.2-1.0)
[2021-11-25 07:11] LABS: ALBUMIN 3.1 g/dL (3.5-5.0); CREATININE 1.1 mg/dL (0.5-1.5); POTASSIUM 4.5 mmol/L (3.5-5.1); TOTAL PROTEIN, SERUM 5.6 g/dL (6.0-8.3)
[2021-11-25 07:13] LABS: BACTERIA,URINE RARE /HPF (None Seen); MUCUS,URINE RARE LPF (None Seen); RBC,URINE 51-100 /HPF (0-1); SQUAMOUS EPITHELIAL CELL,UR RARE /HPF (0-2)
[2021-11-25] MEDS ORDERED: NITROGLYCERIN 0.4 MG SL TAB SL STA (07:58)
[2021-11-25] MEDS ORDERED: MAG/ALUM/SIMETH 30 ML UDCUP PO ONE (08:30)
[2021-11-25] MEDS ORDERED: LIDOCAINE HCL 2% VISCOUS 15 ML UDCUP PO ONE (08:30)
[2021-11-25] MEDS ORDERED: DICYCLOMINE HCL 10 MG/5 ML ML PO ONE (08:30)
[2021-11-25] MEDS ORDERED: PANTOPRAZOLE 40 MG/VIAL IVP STA (08:46)
[2021-11-25] MEDS ORDERED: HYDROXYZINE 100MG/2ML VIAL IM SCH (09:09)
[2021-11-25 10:18] LABS: AMPHET/METH SCREEN,URINE NEGATIVE (NEGATIVE); BARBITURATE SCREEN, URINE NEGATIVE (NEGATIVE); BENZODIAZEPINES SCREEN,URINE POSITIVE (NEGATIVE); CANNABINOID SCREEN,URINE NEGATIVE (NEGATIVE); COCAINE SCREEN,URINE NEGATIVE (NEGATIVE); OPIATE SCREEN,URINE NEGATIVE (NEGATIVE); PHENCYCLIDINE SCREEN,URINE NEGATIVE (NEGATIVE)
[2021-11-25 12:00] VITALS: BP 130/76
== END 2021-11-25 12:34 | disposition home or self-care (01) ==
LOC: EDH 06:30
DX: K29.70 Gastritis, unspecified, without bleeding (principal); G89.29 Other chronic pain; R07.89 Other chest pain; Z20.822 Contact with and (suspected) exposure to COVID-19; I10 Essential (primary) hypertension; I25.10 Atherosclerotic heart disease of native coronary artery without angina pectoris; J44.9 Chronic obstructive pulmonary disease, unspecified; G20 Parkinson's disease; Z79.82 Long term (current) use of aspirin; Z88.8 Allergy status to other drugs, medicaments and biological substances; Z95.5 Presence of coronary angioplasty implant and graft
CPT/HCPCS: 99285; 74176; 96374; 71045; 87635; 84484 ×2; 80053; 80305; 85025; 87804 ×2; 36415; 93005; 96372; 81001; C9803; C9113; J3410

== ENCOUNTER 2021-11-30 21:41 | Emergency (ER) | payer OTHER, MEDICARE ==
[~2021-11-30] VITALS: Ht 172.7 cm; Wt 89.8 kg
[2021-11-30 22:04] LABS: BASOPHILS % (AUTO) 1.4 % (0.0-5.0); EOSINOPHILS % (AUTO) 3.1 % (0.0-8.0); HEMATOCRIT 28.1 % (42-54); LYMPHOCYTES % (AUTO) 35.4 % (21.0-51.0); MEAN CORPUSCULAR HEMOGLOBIN 24.2 pg (27.0-33.0); MEAN CORPUSCULAR HGB CONC 31.3 g/dL (32.0-36.0); MEAN CORPUSCULAR VOLUME 77.4 fL (79-99); MONOCYTES % (AUTO) 8.3 % (3.0-13.0); NEUTROPHILS % (AUTO) 51.2 % (40.0-77.0); PLATELET COUNT (AUTO) 411 K/uL (130-400); RED BLOOD CELL COUNT(AUTO) 3.63 MIL/uL (4.50-6.20); RED CELL DISTRIBUTION WIDTH 17.5 % (11.0-15.5); WHITE BLOOD COUNT (AUTO) 7.8 K/uL (4.8-10.8)
[2021-11-30 22:11] LABS: CREATININE 1.1 mg/dL (0.5-1.5)
[2021-11-30 22:15] VITALS: BP 128/61
[2021-11-30 22:20] LABS: ALBUMIN 3.6 g/dL (3.5-5.0); TOTAL PROTEIN, SERUM 6.7 g/dL (6.0-8.3)
[2021-11-30 23:03] LABS: CREATINE KINASE, TOTAL 59 U/L (21-232); LIPASE 153 U/L (114-286)
[2021-12-01] MEDS ORDERED: ONDA-104 PO (01:14)
[2021-12-01] MEDS ORDERED: IBUP-1493 PO (01:14)
== END 2021-12-01 01:35 | disposition home or self-care (01) ==
LOC: EDH 21:41
DX: K80.20 Calculus of gallbladder without cholecystitis without obstruction (principal); I10 Essential (primary) hypertension; I25.10 Atherosclerotic heart disease of native coronary artery without angina pectoris; J44.9 Chronic obstructive pulmonary disease, unspecified; G20 Parkinson's disease; I25.2 Old myocardial infarction; Z95.5 Presence of coronary angioplasty implant and graft; Z88.8 Allergy status to other drugs, medicaments and biological substances; Z79.82 Long term (current) use of aspirin
CPT/HCPCS: 36415; 76705; 80053; 82550; 83690; 84484; 85025; 93005

== ENCOUNTER 2022-04-14 12:07 | Observation (INO) | payer OTHER, MEDICARE ==
[~2022-04-14] VITALS: Ht 175.3 cm; Wt 92.5 kg
[~2022-04-14 12:07] MED LIST changes: -ALBU8.5H8 IH; -ASPI-556 PO; -ATOR40TA71 PO; +ESCI20TA PO; -ESCI20TA38 PO; +HYDR-4068 PO; -ICOS1CAP PO; -IPRA3AMP24 IH; -LEVO750T68 PO; -LISI2.5T13 PO; -MAG-55 PO; -METO25TA6 PO; +OMEG100033 PO; -QUET50TA24 PO; -ROPI0.5T7 PO; -ROSU20TA31 PO; +ROSU40TA21 PO; +TAMS-1 PO; +VITA1CAP85 PO
[2022-04-14 13:06] LABS: BASOPHILS % (AUTO) 0.6 % (0.0-5.0); EOSINOPHILS % (AUTO) 0.4 % (0.0-8.0); HEMATOCRIT 27.4 % (42-54); LYMPHOCYTES % (AUTO) 8.2 % (21.0-51.0); MEAN CORPUSCULAR HEMOGLOBIN 27.5 pg (27.0-33.0); MEAN CORPUSCULAR HGB CONC 31.8 g/dL (32.0-36.0); MEAN CORPUSCULAR VOLUME 86.7 fL (79-99); MONOCYTES % (AUTO) 7.5 % (3.0-13.0); NEUTROPHILS % (AUTO) 82.8 % (40.0-77.0); PLATELET COUNT (AUTO) 393 K/uL (130-400); RED BLOOD CELL COUNT(AUTO) 3.16 MIL/uL (4.50-6.20); RED CELL DISTRIBUTION WIDTH 18.5 % (11.0-15.5); WHITE BLOOD COUNT (AUTO) 13.8 K/uL (4.8-10.8)
[2022-04-14 13:15] LABS: CREATININE 1.3 mg/dL (0.5-1.5); POTASSIUM 4.1 mmol/L (3.5-5.1)
[2022-04-14 13:19] LABS: ALBUMIN 3.6 g/dL (3.5-5.0); TOTAL PROTEIN, SERUM 6.3 g/dL (6.0-8.3)
[2022-04-14 13:27] LABS: B-TYPE NATRIURETIC PEPTIDE 78 pg/mL (0-100)
[2022-04-14 14:02] LABS: APPEARANCE,URINE CLEAR (CLEAR); BILIRUBIN,URINE NEGATIVE (NEGATIVE); COLOR,URINE LIGHT-ORANGE (YELLOW); GLUCOSE, URINE (UA) NEGATIVE (NEGATIVE); KETONES,URINE NEGATIVE (NEGATIVE); LEUKOCYTE ESTERASE ,URINE 25 Leu/uL (NEGATIVE); NITRATE,URINE NEGATIVE (NEGATIVE); PROTEIN,URINE 20 mg/dL (NEGATIVE); UROBILINOGEN,URINE 0.2 mg/dL (0.2-1.0)
[2022-04-14 14:06] LABS: BACTERIA,URINE RARE /HPF (None Seen); MUCUS,URINE RARE LPF (None Seen); RBC,URINE 0-1 /HPF (0-1); SQUAMOUS EPITHELIAL CELL,UR RARE /HPF (0-2)
[2022-04-14] MEDS ORDERED: SOLU-MEDROL 125MG VIAL IVP ONE (14:30)
[2022-04-14] MEDS ORDERED: CEFTRIAXONE 1G VIAL IVP ONE (14:30)
[2022-04-14] MEDS ORDERED: SOLU-MEDROL 125MG VIAL ONE (14:44)
[2022-04-14] MEDS ORDERED: CEFTRIAXONE 1G VIAL ONE (14:44)
[2022-04-14] MEDS ORDERED: 0.9%NACL 1000ML 1,000 ML IV ONE ×4 (15:30→17:30)
[2022-04-14] MEDS ORDERED: IPRATROPIUM/ALBUTEROL SULFATE 3 ML SOLUTION IH ONE (15:30)
[2022-04-14] MEDS ORDERED: ALBUTEROL 0.042% 1.25MG/3ML IH ONE (16:11)
[2022-04-14] MEDS ORDERED: IPRATROPIUM 0.5 MG/2.5 ML INH IH ONE (16:12)
[2022-04-14] MEDS ORDERED: LABETALOL 20MG SYG IV PRN (17:30)
[2022-04-14] MEDS ORDERED: ONDANSETRON 4MG INJ IVP PRN (17:30)
[2022-04-14] MEDS ORDERED: HYDRALAZINE 20MG/ML VIAL IV PRN (17:30)
[2022-04-14] MEDS ORDERED: ACETAMINOPHEN 325 MG TAB PO PRN (17:30)
[2022-04-14] MEDS ORDERED: LACTULOSE 20 GM/30 ML UDCUP PO PRN (17:30)
[2022-04-14] MEDS: SODIUM CHLORIDE 3% FOR INHALATION 4 ML/AMP VIAL.NEB IH SCH ×2 (18:33→23:33)
[2022-04-14] MEDS: IPRATROPIUM 0.5 MG/2.5 ML INH IH SCH ×2 (18:33→23:33)
[2022-04-14] MEDS ORDERED: TEMAZEPAM 7.5 MG CAPSULE PO PRN (21:30)
[2022-04-14] MEDS ORDERED: TEMAZEPAM 15 MG CAPSULE ONE (21:31)
[2022-04-14] MEDS: CEFEPIME HCL 1 GM VIAL IVP SCH (21:53)
[2022-04-14] MEDS: FAMOTIDINE 20MG TAB PO SCH (21:53)
[2022-04-14] MEDS: INSULIN HUMULIN R 100 UNIT/ML 3ML SQ SCH (21:59)
[2022-04-15 04:00] VITALS: BP 108/56
[2022-04-15 06:15] LABS: CREATININE 1.1 mg/dL (0.5-1.5); MAGNESIUM 2.1 mg/dL (1.80-2.40); PHOSPHORUS 3.8 mg/dL (2.5-4.9); POTASSIUM 4.2 mmol/L (3.5-5.1)
[2022-04-15 06:29] LABS: BASOPHILS % (AUTO) 0.1 % (0.0-5.0); HEMATOCRIT 25.2 % (42-54); LYMPHOCYTES % (AUTO) 9.6 % (21.0-51.0); MEAN CORPUSCULAR HGB CONC 30.2 g/dL (32.0-36.0); MEAN CORPUSCULAR VOLUME 89.7 fL (79-99); MONOCYTES % (AUTO) 2.2 % (3.0-13.0); NEUTROPHILS % (AUTO) 87.4 % (40.0-77.0); PLATELET COUNT (AUTO) 380 K/uL (130-400); RED BLOOD CELL COUNT(AUTO) 2.81 MIL/uL (4.50-6.20); RED CELL DISTRIBUTION WIDTH 18.6 % (11.0-15.5); WHITE BLOOD COUNT (AUTO) 8.2 K/uL (4.8-10.8)
[2022-04-15] MEDS: INSULIN HUMULIN R 100 UNIT/ML 3ML SQ SCH (06:37)
[2022-04-15] MEDS: IPRATROPIUM 0.5 MG/2.5 ML INH IH SCH (06:44)
[2022-04-15] MEDS: SODIUM CHLORIDE 3% FOR INHALATION 4 ML/AMP VIAL.NEB IH SCH (06:44)
[2022-04-15 08:00] VITALS: BP 110/48
[2022-04-15] MEDS ORDERED: 0.9% NACL 250ML 250 ML ONE (08:29)
[2022-04-15] MEDS: CEFEPIME HCL 1 GM VIAL IVP SCH (08:48)
[2022-04-15] MEDS: FAMOTIDINE 20MG TAB PO SCH (08:49)
[2022-04-15] MEDS ORDERED: AZITHROMYCIN 500MG+NS 250ML IV SCH (09:00)
[2022-04-15] MEDS ORDERED: SOLU-MEDROL 40MG VIAL IVP SCH (09:00)
[2022-04-15] MEDS ORDERED: PRED20TA3 PO (10:26)
[2022-04-15] MEDS ORDERED: AMOX1TAB16 PO (10:26)
== END 2022-04-15 11:25 | disposition home or self-care (01) ==
LOC: EDH 12:07 → EDHIP 17:25 → 3BH 23:00
PROVIDERS: ADMIT Internal Medicine; ATTEND Internal Medicine
DX: J96.21 Acute and chronic respiratory failure with hypoxia (principal); Z20.822 Contact with and (suspected) exposure to COVID-19; J44.1 Chronic obstructive pulmonary disease with (acute) exacerbation; I10 Essential (primary) hypertension; E86.0 Dehydration; E11.9 Type 2 diabetes mellitus without complications; E78.5 Hyperlipidemia, unspecified; N40.0 Benign prostatic hyperplasia without lower urinary tract symptoms; F32.A Depression, unspecified; R45.851 Suicidal ideations; K21.9 Gastro-esophageal reflux disease without esophagitis; H93.19 Tinnitus, unspecified ear; I25.10 Atherosclerotic heart disease of native coronary artery without angina pectoris; M10.9 Gout, unspecified; Z91.199 Patient's noncompliance with other medical treatment and regimen due to unspecified reason; Z99.81 Dependence on supplemental oxygen; Z90.49 Acquired absence of other specified parts of digestive tract; Z79.899 Other long term (current) drug therapy
CPT/HCPCS: 94640 ×4; 96361; 96375 ×2; 99285; 84484 ×2; 80053; 83880; 85025 ×2; 87804 ×2; 82948 ×2; 81001; 36415 ×2; 87635; 71045; 93005; 94664; 94667; 94668 ×2; 96376; 96365; 96366; 83735; 84100; 80048; 83605; 84145; G0378 ×17; C9803; J2930; J0696; J0692; J2920; J0456; J7050

== ENCOUNTER 2022-06-27 19:19 | Emergency (ER) | payer OTHER, MEDICARE ==
[~2022-06-27] VITALS: Ht 175.3 cm; Wt 83.9 kg
[~2022-06-27 19:19] MED LIST changes: +AMOX1TAB16 PO; -GABA300S PO; +GABA300S3 PO; -NIAC100045 PO; +PRED20TA3 PO
[2022-06-27 20:26] LABS: BASOPHILS % (AUTO) 1.1 % (0.0-5.0); EOSINOPHILS % (AUTO) 2.9 % (0.0-8.0); LYMPHOCYTES % (AUTO) 20.3 % (21.0-51.0); MEAN CORPUSCULAR HEMOGLOBIN 26.5 pg (27.0-33.0); MEAN CORPUSCULAR VOLUME 85.6 fL (79-99); MONOCYTES % (AUTO) 7.3 % (3.0-13.0); NEUTROPHILS % (AUTO) 67.4 % (40.0-77.0); PLATELET COUNT (AUTO) 365 K/uL (130-400); RED BLOOD CELL COUNT(AUTO) 3.62 MIL/uL (4.50-6.20); RED CELL DISTRIBUTION WIDTH 14.9 % (11.0-15.5); WHITE BLOOD COUNT (AUTO) 9.3 K/uL (4.8-10.8)
[2022-06-27 20:38] LABS: CREATININE 0.9 mg/dL (0.5-1.5); POTASSIUM 4.1 mmol/L (3.5-5.1)
[2022-06-27 20:43] LABS: ALBUMIN 2.8 g/dL (3.5-5.0); TOTAL PROTEIN, SERUM 6.6 g/dL (6.0-8.3)
[2022-06-27] MEDS ORDERED: SULF1TAB42 PO (23:33)
[2022-06-27 23:41] VITALS: BP 132/60
== END 2022-06-27 23:48 | disposition home or self-care (01) ==
LOC: EDH 19:19
DX: L02.416 Cutaneous abscess of left lower limb (principal); M19.90 Unspecified osteoarthritis, unspecified site; J45.909 Unspecified asthma, uncomplicated; E78.00 Pure hypercholesterolemia, unspecified; I10 Essential (primary) hypertension; K21.9 Gastro-esophageal reflux disease without esophagitis; M79.7 Fibromyalgia; Z79.52 Long term (current) use of systemic steroids; Z88.8 Allergy status to other drugs, medicaments and biological substances; Z95.5 Presence of coronary angioplasty implant and graft
CPT/HCPCS: 10060; 36415; 80053; 83605; 85025; 87070; 87077; 87186

== ENCOUNTER 2022-07-10 23:43 | Observation (INO) | payer OTHER, MEDICARE ==
[~2022-07-10] VITALS: Ht 175.3 cm; Wt 83.9 kg
[~2022-07-10 23:43] MED LIST changes: +SULF1TAB42 PO
[2022-07-11 00:04] LABS: BASOPHILS % (AUTO) 1.2 % (0.0-5.0); EOSINOPHILS % (AUTO) 2.3 % (0.0-8.0); HEMATOCRIT 28.7 % (42-54); LYMPHOCYTES % (AUTO) 20.7 % (21.0-51.0); MEAN CORPUSCULAR HEMOGLOBIN 27.8 pg (27.0-33.0); MEAN CORPUSCULAR HGB CONC 32.4 g/dL (32.0-36.0); MEAN CORPUSCULAR VOLUME 85.7 fL (79-99); MONOCYTES % (AUTO) 8.2 % (3.0-13.0); NEUTROPHILS % (AUTO) 67.2 % (40.0-77.0); PLATELET COUNT (AUTO) 417 K/uL (130-400); RED BLOOD CELL COUNT(AUTO) 3.35 MIL/uL (4.50-6.20); RED CELL DISTRIBUTION WIDTH 17.1 % (11.0-15.5); WHITE BLOOD COUNT (AUTO) 7.4 K/uL (4.8-10.8)
[2022-07-11 00:14] LABS: CREATININE 1.4 mg/dL (0.5-1.5); POTASSIUM 4.2 mmol/L (3.5-5.1)
[2022-07-11 00:18] LABS: ALBUMIN 3.8 g/dL (3.5-5.0); TOTAL PROTEIN, SERUM 6.2 g/dL (6.0-8.3)
[2022-07-11] MEDS ORDERED: 0.9%NACL 1000ML 1,000 ML IV ONE (00:30)
[2022-07-11 03:01] LABS: APPEARANCE,URINE CLEAR (CLEAR); BILIRUBIN,URINE NEGATIVE (NEGATIVE); COLOR,URINE LIGHT-YELLOW (YELLOW); GLUCOSE, URINE (UA) NEGATIVE (NEGATIVE); KETONES,URINE NEGATIVE (NEGATIVE); LEUKOCYTE ESTERASE ,URINE 25 Leu/uL (NEGATIVE); NITRATE,URINE NEGATIVE (NEGATIVE); OCCULT BLOOD,URINE NEGATIVE (NEGATIVE); PROTEIN,URINE NEGATIVE (NEGATIVE)
[2022-07-11 03:06] LABS: MUCUS,URINE RARE LPF (None Seen); RBC,URINE 0-1 /HPF (0-1)
[2022-07-11] MEDS: CEFTRIAXONE 1G VIAL IV SCH ×2 (03:26→09:00)
[2022-07-11] MEDS: LACTATED RINGERS 1000ML 1,000 ML IV SCH ×3 (03:26→21:36)
[2022-07-11] MEDS ORDERED: HYDRALAZINE 20MG/ML VIAL IV PRN (03:30)
[2022-07-11] MEDS ORDERED: ALBUTEROL 0.083% 2.5 MG/3 ML INH IH PRN (03:30)
[2022-07-11] MEDS ORDERED: ONDANSETRON 4MG INJ IVP PRN (03:30)
[2022-07-11] MEDS ORDERED: ACETAMINOPHEN 325 MG TAB PO PRN (03:30)
[2022-07-11 03:38] LABS: AMPHET/METH SCREEN,URINE NEGATIVE (NEGATIVE); BARBITURATE SCREEN, URINE NEGATIVE (NEGATIVE); BENZODIAZEPINES SCREEN,URINE POSITIVE (NEGATIVE); CANNABINOID SCREEN,URINE NEGATIVE (NEGATIVE); COCAINE SCREEN,URINE NEGATIVE (NEGATIVE); OPIATE SCREEN,URINE NEGATIVE (NEGATIVE); PHENCYCLIDINE SCREEN,URINE NEGATIVE (NEGATIVE)
[2022-07-11] MEDS: ENOXAPARIN SODIUM 30 MG/0.3 ML SQ SCH (09:06)
[2022-07-11] MEDS: PANTOPRAZOLE 40 MG TAB DR PO SCH (09:06)
[2022-07-11] MEDS: DOCUSATE SODIUM 100 MG CAP PO SCH ×2 (09:06→21:25)
[2022-07-11] MEDS ORDERED: FLUT1BLS3 IH (12:27)
[2022-07-11] MEDS ORDERED: ROPI0.5T7 PO (12:27)
[2022-07-11] MEDS ORDERED: GABA-529 PO (12:27)
[2022-07-11] MEDS ORDERED: LISI20TA24 PO (12:27)
[2022-07-11] MEDS ORDERED: ESCI20TA PO (12:27)
[2022-07-11] MEDS ORDERED: PANT40TA54 PO (12:27)
[2022-07-11] MEDS ORDERED: ALBUTEROL IH (12:27)
[2022-07-11] MEDS ORDERED: SUCR1TAB2 PO (12:27)
[2022-07-11 18:10] VITALS: BP 121/55
[2022-07-11 20:23] VITALS: BP 121/55
[2022-07-11 23:54] VITALS: BP 119/64
[2022-07-12] VITALS (8 sets, daily range): BP systolic 90–130; BP diastolic 50–66
[2022-07-12 04:08] LABS: HEMATOCRIT 28.9 % (42-54); MEAN CORPUSCULAR HEMOGLOBIN 27.2 pg (27.0-33.0); MEAN CORPUSCULAR HGB CONC 31.5 g/dL (32.0-36.0); MEAN CORPUSCULAR VOLUME 86.3 fL (79-99); RED BLOOD CELL COUNT(AUTO) 3.35 MIL/uL (4.50-6.20); WHITE BLOOD COUNT (AUTO) 5.9 K/uL (4.8-10.8)
[2022-07-12] MEDS: LACTATED RINGERS 1000ML 1,000 ML IV SCH ×2 (04:23→13:10)
[2022-07-12 04:28] LABS: CREATININE 1.1 mg/dL (0.5-1.5); THYROID STIMULATING HORMONE 1.58 uIU/mL (0.36-3.74)
[2022-07-12 04:43] LABS: MAGNESIUM 1.9 mg/dL (1.80-2.40)
[2022-07-12] MEDS: PANTOPRAZOLE 40 MG TAB DR PO SCH (09:13)
[2022-07-12] MEDS: CEFTRIAXONE 1G VIAL IV SCH (09:13)
[2022-07-12] MEDS: ENOXAPARIN SODIUM 30 MG/0.3 ML SQ SCH (09:14)
[2022-07-12] MEDS: DOCUSATE SODIUM 100 MG CAP PO SCH (09:14)
[2022-07-12] MEDS ORDERED: MUPIROCIN OINTMENT 22 GM TUBE TP SCH (10:30)
[2022-07-13] MEDS ORDERED: BACITRACIN 28.4 GM OINT TP SCH (09:00)
== END 2022-07-12 18:02 | disposition home or self-care (01) ==
LOC: EDH 23:43 → EDHIP 07-11 03:07 → 4BH 07-11 18:10
PROVIDERS: ADMIT Internal Medicine Critical Care Medicine; ATTEND Internal Medicine Critical Care Medicine
DX: R55 Syncope and collapse (principal); Z20.822 Contact with and (suspected) exposure to COVID-19; I11.0 Hypertensive heart disease with heart failure; I50.9 Heart failure, unspecified; I25.10 Atherosclerotic heart disease of native coronary artery without angina pectoris; I25.2 Old myocardial infarction; I27.20 Pulmonary hypertension, unspecified; K57.90 Diverticulosis of intestine, part unspecified, without perforation or abscess without bleeding; K21.9 Gastro-esophageal reflux disease without esophagitis; M19.90 Unspecified osteoarthritis, unspecified site; J45.909 Unspecified asthma, uncomplicated; G20 Parkinson's disease; N30.00 Acute cystitis without hematuria; E78.00 Pure hypercholesterolemia, unspecified; M79.7 Fibromyalgia; S41.111A Laceration without foreign body of right upper arm, initial encounter; Z79.899 Other long term (current) drug therapy; Z86.14 Personal history of Methicillin resistant Staphylococcus aureus infection; Z95.1 Presence of aortocoronary bypass graft; Z95.5 Presence of coronary angioplasty implant and graft; W18.30XA Fall on same level, unspecified, initial encounter; W22.01XA Walked into wall, initial encounter; Y92.009 Unspecified place in unspecified non-institutional (private) residence as the place of occurrence of the external cause; Y93.89 Activity, other specified; Y99.8 Other external cause status
CPT/HCPCS: 80053; 85025; 71045; 93005; 96372 ×2; 96361 ×2; 96365; 99285; 84484; 80305; 87804 ×2; 81001; 36415 ×2; 87635; 70450; 72125; 93880; 96366; 84443; 83735; 80048; 85027; 82533; G0378 ×39; J7120; J1650 ×2; J0696 ×3

== ENCOUNTER 2022-08-30 19:20 | Observation (INO) | payer OTHER, MEDICARE ==
[~2022-08-30 19:20] MED LIST changes: +ALBUTEROL IH; -AMOX1TAB16 PO; -FAMO20TA8 PO; +FLUT1BLS3 IH; +GABA-529 PO; -GABA300S3 PO; -HYDR-4068 PO; +LISI20TA24 PO; +PANT40TA54 PO; -PRED20TA3 PO; +ROPI0.5T37 PO; +SUCR1TAB2 PO; -SULF1TAB42 PO; -VITA1CAP85 PO
[2022-08-30 20:27] LABS: BASOPHILS % (AUTO) 1.2 % (0.0-5.0); EOSINOPHILS % (AUTO) 2.7 % (0.0-8.0); HEMATOCRIT 27.6 % (42-54); LYMPHOCYTES % (AUTO) 25.7 % (21.0-51.0); MEAN CORPUSCULAR HEMOGLOBIN 28.8 pg (27.0-33.0); MEAN CORPUSCULAR VOLUME 87.3 fL (79-99); MONOCYTES % (AUTO) 6.4 % (3.0-13.0); NEUTROPHILS % (AUTO) 63.6 % (40.0-77.0); PLATELET COUNT (AUTO) 317 K/uL (130-400); RED BLOOD CELL COUNT(AUTO) 3.16 MIL/uL (4.50-6.20); RED CELL DISTRIBUTION WIDTH 16.4 % (11.0-15.5); WHITE BLOOD COUNT (AUTO) 6.7 K/uL (4.8-10.8)
[2022-08-30 20:37] LABS: CREATININE 0.9 mg/dL (0.5-1.5); POTASSIUM 3.9 mmol/L (3.5-5.1)
[2022-08-30 20:38] LABS: INR 0.98 (0.85-1.15); PROTHROMBIN TIME 11.4 SEC (9.6-11.6)
[2022-08-30 20:42] LABS: ALBUMIN 3.1 g/dL (3.5-5.0); TOTAL PROTEIN, SERUM 5.4 g/dL (6.0-8.3)
[2022-08-30 20:50] LABS: B-TYPE NATRIURETIC PEPTIDE 168 pg/mL (0-100)
[2022-08-30] MEDS ORDERED: HYDROCODONE/ACETAMINOPHEN 5/325 MG TAB PO PRN ×2 (22:00)
[2022-08-30] MEDS ORDERED: NITROGLYCERIN 0.4 MG SL TAB SL PRN (22:00)
[2022-08-30] MEDS ORDERED: ACETAMINOPHEN 325 MG TAB PO PRN (22:00)
[2022-08-30] MEDS ORDERED: ALBUTEROL 0.083% 2.5 MG/3 ML INH IH PRN (22:00)
[2022-08-30] MEDS ORDERED: LACTULOSE 20 GM/30 ML UDCUP PO PRN (22:00)
[2022-08-30] MEDS ORDERED: HYDRALAZINE 20MG/ML VIAL IV PRN (22:00)
[2022-08-30] MEDS ORDERED: ONDANSETRON 4MG INJ IV PRN (22:00)
[2022-08-30] MEDS ORDERED: GUAIFENESIN-DM 200/20 MG 10 ML PO PRN (22:00)
[2022-08-30] MEDS ORDERED: ZOLPIDEM TARTRATE 5 MG TAB PO PRN (22:00)
[2022-08-30] MEDS ORDERED: DiphenhydrAMINE HCL 50 MG/ML VIAL IV PRN (22:00)
[2022-08-30] MEDS ORDERED: MAG/ALUM/SIMETH 30 ML UDCUP PO PRN (22:00)
[2022-08-30] MEDS ORDERED: NON-FORMULARY MEDICATION 1 EACH (Fluticasone/Umeclidin/Vilanter (Trelegy Ellipta 100-62.5- IH SCH (22:30)
[2022-08-30] MEDS ORDERED: ALBUTEROL IH PRN (22:30)
[2022-08-31] VITALS: BP 138/60
[2022-08-31] MEDS ORDERED: ROPINIROLE HCL 1 MG TABLET ONE (00:26)
[2022-08-31 00:49] VITALS: PULSE 47; RESP 18
[2022-08-31] MEDS ORDERED: SUCRALFATE 1 GM TABLET PO SCH (07:30)
[2022-08-31] MEDS ORDERED: GABAPENTIN 100 MG CAPSULE PO SCH (09:00)
[2022-08-31] MEDS ORDERED: ROPINIROLE HCL 0.25 MG TABLET PO SCH (09:00)
[2022-08-31] MEDS ORDERED: LISINOPRIL 20 MG TABLET PO SCH (09:00)
[2022-08-31] MEDS ORDERED: CITALOPRAM 20 MG TABLET PO SCH (09:00)
[2022-08-31] MEDS ORDERED: FAMOTIDINE 20MG VIAL IV SCH ×2 (09:00)
[2022-08-31] MEDS ORDERED: HEPARIN 5,000 UNIT VIAL SQ SCH (09:00)
== END 2022-08-31 01:13 | disposition left against medical advice (07) ==
LOC: EDH 19:20 → EDHIP 21:59
PROVIDERS: ADMIT Internal Medicine; ATTEND Internal Medicine
DX: R07.89 Other chest pain (principal); R06.03 Acute respiratory distress; I11.0 Hypertensive heart disease with heart failure; I50.9 Heart failure, unspecified; I25.10 Atherosclerotic heart disease of native coronary artery without angina pectoris; I25.2 Old myocardial infarction; I27.20 Pulmonary hypertension, unspecified; J44.9 Chronic obstructive pulmonary disease, unspecified; K21.9 Gastro-esophageal reflux disease without esophagitis; K29.70 Gastritis, unspecified, without bleeding; K57.90 Diverticulosis of intestine, part unspecified, without perforation or abscess without bleeding; M19.90 Unspecified osteoarthritis, unspecified site; G20 Parkinson's disease; F02.80 Dementia in other diseases classified elsewhere, unspecified severity, without behavioral disturbance, psychotic disturbance, mood disturbance, and anxiety; M79.7 Fibromyalgia; S09.90XA Unspecified injury of head, initial encounter; E78.00 Pure hypercholesterolemia, unspecified; M85.80 Other specified disorders of bone density and structure, unspecified site; Z53.29 Procedure and treatment not carried out because of patient's decision for other reasons; Z86.16 Personal history of COVID-19; Z87.440 Personal history of urinary (tract) infections; Z91.81 History of falling; Z95.1 Presence of aortocoronary bypass graft; Z79.899 Other long term (current) drug therapy; Z98.890 Other specified postprocedural states; Z95.5 Presence of coronary angioplasty implant and graft; X58.XXXA Exposure to other specified factors, initial encounter
CPT/HCPCS: 99285; 82550; 84484; 80053; 83880; 85025; 85378; 85610; 85730; 87040 ×2; 87077; 87186; 36415; 71045; 70450; 72125; 74176; 93005; G0378 ×3

== ENCOUNTER 2022-11-16 18:40 | Emergency (ER) | payer OTHER, MEDICARE ==
[~2022-11-16] VITALS: Ht 175.3 cm; Wt 81.6 kg
[2022-11-16 19:34] LABS: BASOPHILS # (AUTO) 0.09 K/uL (0.00-0.20); BASOPHILS % (AUTO) 0.9 % (0.0-5.0); EOSINOPHILS # (AUTO) 0.08 K/uL (0.00-0.70); EOSINOPHILS % (AUTO) 0.8 % (0.0-8.0); HEMATOCRIT 31.6 % (42-54); IMMATURE GRANULOCYTE ABSOLUTE 0.06 K/uL (0-1); LYMPHOCYTES # (AUTO) 1.3 K/uL (1.0-4.8); LYMPHOCYTES % (AUTO) 12.4 % (21.0-51.0); MEAN CORPUSCULAR HEMOGLOBIN 29.8 pg (27.0-33.0); MEAN CORPUSCULAR HGB CONC 33.5 g/dL (32.0-36.0); MEAN CORPUSCULAR VOLUME 88.8 fL (79-99); MONOCYTES # (AUTO) 0.7 K/uL (0.1-1.0); MONOCYTES % (AUTO) 6.9 % (3.0-13.0); NEUTROPHILS # (AUTO) 8.3 K/uL (1.8-7.7); NEUTROPHILS % (AUTO) 78.4 % (40.0-77.0); PLATELET COUNT (AUTO) 359 K/uL (130-400); RED BLOOD CELL COUNT(AUTO) 3.56 MIL/uL (4.50-6.20); RED CELL DISTRIBUTION WIDTH 15.9 % (11.0-15.5); WHITE BLOOD COUNT (AUTO) 10.5 K/uL (4.8-10.8)
[2022-11-16 19:57] LABS: ALBUMIN 3.8 g/dL (3.5-5.0); BILIRUBIN,TOTAL 2.2 mg/dL (0.2-1.0); CREATININE 1.5 mg/dL (0.5-1.5); POTASSIUM 4.2 mmol/L (3.5-5.1); TOTAL PROTEIN, SERUM 6.5 g/dL (6.0-8.3)
[2022-11-16 20:14] LABS: APPEARANCE,URINE CLEAR (CLEAR); BILIRUBIN,URINE NEGATIVE (NEGATIVE); COLOR,URINE YELLOW (YELLOW); GLUCOSE, URINE (UA) NEGATIVE (NEGATIVE); KETONES,URINE NEGATIVE (NEGATIVE); LEUKOCYTE ESTERASE ,URINE NEGATIVE Leu/uL (NEGATIVE); NITRATE,URINE NEGATIVE (NEGATIVE); OCCULT BLOOD,URINE NEGATIVE (NEGATIVE); PH,URINE 6.5 (5.0-8.0); PROTEIN,URINE NEGATIVE (NEGATIVE)
[2022-11-16 20:16] LABS: ADD UA MICROSCOPIC YES
[2022-11-16 20:31] LABS: BACTERIA,URINE RARE /HPF (None Seen); MUCUS,URINE RARE LPF (None Seen); SQUAMOUS EPITHELIAL CELL,UR FEW /HPF (0-2)
[2022-11-16] MEDS ORDERED: MORPHINE 2 MG SYG IVP ONE (21:30)
[2022-11-16] MEDS ORDERED: FAMOTIDINE 20MG VIAL IV ONE (21:30)
[2022-11-16] MEDS ORDERED: 0.9%NACL 1000ML 1,413 ML IV ONE (21:30)
[2022-11-16] MEDS ORDERED: METOCLOPRAMIDE 10 MG/2 ML VIAL IVP ONE (21:30)
[2022-11-16] MEDS ORDERED: KETOROLAC 15MG/ML VIAL (15MG/ML) IV ONE (23:30)
[2022-11-16] MEDS ORDERED: TAMSULOSIN HCL 0.4 MG CAP.ER.24H PO ONE (23:30)
[2022-11-17] MEDS ORDERED: TAMS-1 PO (01:13)
[2022-11-17] MEDS ORDERED: METO-296 PO (01:13)
[2022-11-17] MEDS ORDERED: KETO10 PO (01:13)
[2022-11-17] MEDS ORDERED: FAMO-136 PO (01:13)
[2022-11-17 01:43] VITALS: BP 124/59; PULSE 71; RESP 18; O2SAT 99
== END 2022-11-17 01:44 | disposition home or self-care (01) ==
LOC: EDH 18:40
DX: N13.2 Hydronephrosis with renal and ureteral calculous obstruction (principal); E11.9 Type 2 diabetes mellitus without complications; I10 Essential (primary) hypertension; Z88.8 Allergy status to other drugs, medicaments and biological substances; Z95.5 Presence of coronary angioplasty implant and graft
CPT/HCPCS: 99285; 74176; 96374; 96375; 96361; 84484; 80053; 83690; 85025; 81001; 36415; 93005; J3490; J2270; J7030; J2765; J1885; 99281

== ENCOUNTER → 2023-03-31 | Outpatient (CLI) | payer OTHER, MEDICARE ==
[~2023-03-31] MED LIST changes: +FAMO-136 PO; +HYDR-4068 PO; -LISI20TA24 PO; +MIDO10TA PO
[2023-03-31] MEDS: REGADENOSON 0.4 MG/5 ML PF SYG IVP SCH (12:09)
== END | disposition home or self-care (01) ==
LOC: RAH 08:07
PROVIDERS: ATTEND Internal Medicine Cardiovascular Disease
DX: R55 Syncope and collapse (principal); I10 Essential (primary) hypertension; R94.4 Abnormal results of kidney function studies; I25.10 Atherosclerotic heart disease of native coronary artery without angina pectoris; Z79.899 Other long term (current) drug therapy
CPT/HCPCS: 78452; 93017; J2785; A9500 ×2; 96374

== ENCOUNTER → 2023-09-22 | Outpatient (CLI) | payer MEDICARE ==
[~2023-09-22] VITALS: Ht 175.3 cm; Wt 82.1 kg
[~2023-09-22] MED LIST changes: +ACET-66 PO; +ERGO500093 PO; +RANO500T6 PO; -ROSU40TA21 PO; +ROSU40TA70 PO; +SERT-439 PO
[2023-09-22 12:08] VITALS: BP 104/63; PULSE 86; RESP 16
[2023-09-22 12:11] LABS: BASOPHILS % (AUTO) 1.7 % (0.0-5.0); EOSINOPHILS # (AUTO) 0.19 K/uL (0.00-0.70); EOSINOPHILS % (AUTO) 3.2 % (0.0-8.0); HEMATOCRIT 34.6 % (42-54); IMMATURE GRANULOCYTE ABSOLUTE 0.03 K/uL (0-1); LYMPHOCYTES # (AUTO) 1.6 K/uL (1.0-4.8); MEAN CORPUSCULAR HGB CONC 33.5 g/dL (32.0-36.0); MEAN CORPUSCULAR VOLUME 92.5 fL (79-99); MONOCYTES # (AUTO) 0.6 K/uL (0.1-1.0); MONOCYTES % (AUTO) 9.2 % (3.0-13.0); NEUTROPHILS # (AUTO) 3.6 K/uL (1.8-7.7); NEUTROPHILS % (AUTO) 59.4 % (40.0-77.0); PLATELET COUNT (AUTO) 366 K/uL (130-400); RED BLOOD CELL COUNT(AUTO) 3.74 MIL/uL (4.50-6.20); RED CELL DISTRIBUTION WIDTH 16.1 % (11.0-15.5)
[2023-09-22 12:30] LABS: INR 1.01 (0.85-1.15); PROTHROMBIN TIME 10.9 SEC (9.6-11.6)
== END | disposition home or self-care (01) ==
LOC: DAH 10:00 → EDSTATUS 09-27 09:00
PROVIDERS: ATTEND Surgery
DX: Z01.818 Encounter for other preprocedural examination (principal); K80.20 Calculus of gallbladder without cholecystitis without obstruction; Z98.890 Other specified postprocedural states
CPT/HCPCS: 85025; 85610; 86850; 86900; 86901; 86156; 86870; 36415 ×2; 93005; A6260

== ENCOUNTER 2023-10-01 13:15 | Emergency (ER) | payer MEDICARE ==
[~2023-10-01] VITALS: Ht 175.3 cm; Wt 83.9 kg
[~2023-10-01 13:15] MED LIST changes: -ACET-66 PO; -ALBUTEROL IH; -ESCI20TA PO; -GABA-529 PO; -OMEG100033 PO; -PANT40TA54 PO; -SUCR1TAB2 PO
[2023-10-01 15:08] VITALS: BP 105/61; PULSE 86; RESP 20; O2SAT 99
[2023-10-01] MEDS ORDERED: ACET-66 PO (15:08)
== END 2023-10-01 15:30 | disposition home or self-care (01) ==
LOC: EDH 13:15
DX: S92.411A Displaced fracture of proximal phalanx of right great toe, initial encounter for closed fracture (principal); R42 Dizziness and giddiness; J45.909 Unspecified asthma, uncomplicated; I10 Essential (primary) hypertension; Z98.890 Other specified postprocedural states; Z79.899 Other long term (current) drug therapy; Z91.041 Radiographic dye allergy status; W01.0XXA Fall on same level from slipping, tripping and stumbling without subsequent striking against object, initial encounter; Y93.89 Activity, other specified; Y92.89 Other specified places as the place of occurrence of the external cause; Y99.8 Other external cause status
CPT/HCPCS: 70450; 72125; 73630

== ENCOUNTER 2023-11-22 14:54 | Emergency (ER) | payer MEDICARE ==
[~2023-11-22] VITALS: Ht 172.7 cm; Wt 79.8 kg
[~2023-11-22 14:54] MED LIST changes: +ACET-66 PO; -ROSU40TA70 PO; +ROSU40TA88 PO
[2023-11-22 15:26] LABS: HEMATOCRIT 32.2 % (42-54); MEAN CORPUSCULAR HEMOGLOBIN 31.1 pg (27.0-33.0); MEAN CORPUSCULAR HGB CONC 34.2 g/dL (32.0-36.0); RED BLOOD CELL COUNT(AUTO) 3.54 MIL/uL (4.50-6.20); RED CELL DISTRIBUTION WIDTH 14.8 % (11.0-15.5)
[2023-11-22] MEDS: 0.9%NACL 1000ML 1,000 ML IV ONE (15:29)
[2023-11-22] MEDS: mecliZINE HCL 12.5 MG TABLET PO ONE (15:29)
[2023-11-22 15:33] LABS: CREATININE 1.2 mg/dL (0.5-1.3)
[2023-11-22 16:07] LABS: APPEARANCE,URINE CLEAR (CLEAR); BILIRUBIN,URINE NEGATIVE (NEGATIVE); GLUCOSE, URINE (UA) NEGATIVE (NEGATIVE); KETONES,URINE NEGATIVE (NEGATIVE); LEUKOCYTE ESTERASE ,URINE 75 Leu/uL (NEGATIVE); NITRATE,URINE NEGATIVE (NEGATIVE); OCCULT BLOOD,URINE NEGATIVE (NEGATIVE); PROTEIN,URINE NEGATIVE (NEGATIVE); UROBILINOGEN,URINE 6 mg/dL (0.2-1.0)
[2023-11-22 16:19] LABS: ADD UA MICROSCOPIC YES; COLOR,URINE AMBER (YELLOW)
[2023-11-22 16:21] LABS: MUCUS,URINE RARE LPF (None Seen); RBC,URINE 0-1 /HPF (0-1); SQUAMOUS EPITHELIAL CELL,UR RARE /HPF (0-2)
[2023-11-22] MEDS ORDERED: CEPH500B PO (16:32)
[2023-11-22 17:06] VITALS: BP 131/66; PULSE 76; RESP 18; TEMP 98.7; O2SAT 99
== END 2023-11-22 17:12 | disposition home or self-care (01) ==
LOC: EDH 14:54
DX: N39.0 Urinary tract infection, site not specified (principal); E86.0 Dehydration; G20.A1 Parkinson's disease without dyskinesia, without mention of fluctuations; E11.9 Type 2 diabetes mellitus without complications; I11.9 Hypertensive heart disease without heart failure; I25.10 Atherosclerotic heart disease of native coronary artery without angina pectoris; J44.9 Chronic obstructive pulmonary disease, unspecified; Z90.49 Acquired absence of other specified parts of digestive tract; Z91.041 Radiographic dye allergy status; Z95.5 Presence of coronary angioplasty implant and graft; Z98.890 Other specified postprocedural states
CPT/HCPCS: 99285; 96360; 71045; 84484; 80048; 85027; 87086; 81001; 36415; 93005; J7030

== ENCOUNTER 2024-02-22 14:06 | Emergency (ER) | payer MEDICARE ==
[~2024-02-22] VITALS: Ht 172.7 cm; Wt 83.9 kg
[~2024-02-22 14:06] MED LIST changes: +CEPH500B PO; -MIDO10TA PO; +MIDO10TA3 PO
[2024-02-22 14:20] VITALS: BP 159/75; PULSE 68; RESP 16; TEMP 98.8; O2SAT 96
[2024-02-22] MEDS: ketOROlac 15MG/ML VIAL (15MG/ML) IM ONE (14:47)
[2024-02-22] MEDS: morPHINE 2 MG SYG IM ONE (14:48)
[2024-02-22] MEDS ORDERED: KETO10TA2 PO (14:50)
--- NOTE | 2024-02-22 14:52 | ERN ---
General Chief Complaint: FOOT INJURY/PAIN Stated Complaint: L FOOT PAIN Time Seen by MD: 14:12 Time Seen by Midlevel: 14:12 Source: patient History of Present Illness Initial Comments Patient is a 74-year-old male with a past medical history of gout presenting to the emergency department with left heel pain. Patient states the pain is similar to his previous gout flare-ups. The pain is worse with ambulation. Denies any other symptoms or concerns at this time. Allergies: Coded Allergies: Iodine and Iodide Containing Produc (Unverified Allergy, Unknown, 07/01/16) Home Meds Active Scripts Cephalexin Monohydrate (Keflex) 500 Mg Cap, 1 CAP PO BID for 10 Days, #20 CAP 0 Refills Prov:EBER MURPHY MD 11/22/23 Acetaminophen (Acetaminophen) 500 Mg Tablet, 500 MG PO TIDP PRN for PAIN, #30 TAB Prov:FAY PADILLA 10/01/23 Famotidine (Pepcid) 20 Mg Tablet, 20 MG PO BID, #60 TAB 2 Refills Prov:TRINIDAD GODINEZ Sr., MD 11/17/22 Reported Medications Ranolazine (Ranolazine ER) 500 Mg Tab.er.12h, 500 MG PO BID PRN for CHEST PAIN, TAB 09/26/23 Ergocalciferol (Vitamin D2) (Vitamin D2) 1,250 Mcg (36831 Unit) Capsule, 1250 MCG PO 2/week, CAP 09/26/23 Sertraline HCl (Sertraline HCl) 50 Mg Tablet, 50 MG PO AM, TAB 09/26/23 Hydrocodone/Acetaminophen (Hydrocodon-Acetaminophn 10-325) 10 Mg-325 Mg Tablet, 1 EACH PO AD PRN for PAIN, TAB 03/18/23 Midodrine HCl (Midodrine HCl) 10 Mg Tablet, 10 MG PO AM, TAB 24 Fluticasone/Umeclidin/Vilanter (Trelegy Ellipta 100-62.5-25) 100-62.5 Blst.w.dev, 1 EACH IH AD 07/11/22 Ropinirole HCl (Ropinirole HCl) 0.5 Mg Tablet, 0.5 MG PO HS, TAB 07/11/22 Tamsulosin HCl (Flomax) 0.4 Mg Cap.er.24h, 0.4 MG PO AM, CAPSULE. 02/01/22 Rosuvastatin Calcium (Rosuvastatin Calcium) 40 Mg Tablet, 40 MG PO HS, TAB 02/01/22 Allopurinol (Allopurinol) 300 Mg Tablet, 300 MG PO AM, TAB 09/09/20 Past Medical History Past Medical History: CAD, High Cholesterol, Heart Disease, Hypertension, ND, Other Medical History Other: GOUT" Past Surgical History: Other Surgical History Other: CARDIAC STENTS POST ND Family History Family History: Negative Social History Social History: Negative, Lives with family ROS Dictation CONSTITUTIONAL: Negative except for HPI HEAD/FACE: Negative except for HPI EENT: Negative except for HPI RESPIRATORY: Negative except for HPI GASTROINTESTINAL/ABDOMINAL: Negative except for HPI GENITOURINARY: Negative except for HPI MUSCULOSKELETAL: Negative except for HPI INTEGUMENTARY: Negative except for HPI NEUROLOGICAL/PSYCH: Negative except for HPI HEMATOLOGIC/LYMPHATIC: Negative except for HPI All Systems Negative, Except as noted above. 13 point review of systems assessed and all negative except for above. Physical Exam Physical Exam Dictation Vital Signs reviewed General Appearance: Alert, oriented x 3, no acute distress, well developed, nourished. Head and Face: non-traumatic. Eyes: PERRL, pink conjunctivas, eyelid no trauma, anterior chamber with arcus senilis. Ears: Pinnas intact and no signs of trauma or erythema ear canals clear and no discharge TM no erythema Nose: No discharge, no bleeding. Oropharynx: Mouth normal, tongue pink, pharynx clear,no erythema, tonsils no exudates, no abscesses noted, mucous membrane moist Neck: Supple, non-tender, no thyromegaly, no masses, no JVD, no bruits Breast:Deferred Chest:No tenderness, no crepitus, no paradoxical movement, no retractions Lungs:Clear, well-ventilated, symmetric, no rales, no wheezing, no rhonchi, no stridor, good breath sounds bilaterally Heart: Regular rate, regular rhythm, no murmur, no gallops Vascular: no peripheral edema, Abdomen: Soft, positive bowel sounds, nondistended, no guarding, nontender, no rebound, no masses no hepatomegaly, no splenomegaly, no Barr's sign, no hernias. Rectal: Deferred Genital: Deferred Neurological: Normal speech, motor function intact, sensory function intact Musculoskeletal: Neck nontender, full range of motion, back nontender, full range of motion, Extremities: nontender, full range of motion Skin: Color pink, dry, no turgor, no rash, no lacerations, no abrasions, no contusions. Lymphatic: Deferred MDM MDM: Patient is a 74-year-old male with a past medical history of gout presenting to the emergency department with left heel pain. Patient states the pain is similar to his previous gout flare-ups. The pain is worse with ambulation. Denies any other symptoms or concerns at this time. On physical examination patient is in no acute distress. Patient is ambulatory without assistance with a normal gait. There was no obvious deformity or injury to the left foot. An x-ray was obtained which does not show any acute fracture. We will treat as a gout flare-up. Patient was given steroids and pain control in the ER and will be discharged home with supportive management. Patient was advised to follow up with PCP in 2-3 days for repeat evaluation. Differential diagnosis: Got flare-up, fracture, contusion There are no social concerns with this patient. Prescription drug management Prescriptions will include: Toradol Medical management and examination interpretation discussions were had by me with other qualified healthcare professionals as indicated for the patient's care. ED Course Orders Procedure Category Date Status Time Foot Comp 3+Vws Lt RAD 02/22/24 Taken 14:26 Morphine 2mg Syg PHA 02/22/24 In Process (Morphine 2mg Syg) 15:00 Ketorolac PHA 02/22/24 In Process Tromethamine 15mg/Ml 15:00 Current Medications Medications (Trade) Dose Ordered Sig/Jose Route PRN Reason Start Time Stop Time Status Last Admin Dose Admin Ketorolac Tromethamine (toRADol) 15 mg ONCE ONCE IM 02/22/24 15:00 02/22/24 15:01 Morphine Sulfate (morPHINE 2MG SYG) 2 mg ONCE ONCE IM 02/22/24 15:00 02/22/24 15:01 Vital Signs Date Time Temp Pulse Resp B/P (MAP) Pulse Ox O2 Delivery O2 Flow Rate FiO2 02/22/24 14:20 98.8 68 16 159/75 96 Room Air* 0 21 02/22/24 14:09 98.8 70 17 159/75 100 Room Air 0 DX & DISP Disposition: Discharge Departure Impression: Primary Impression: Gout flare Condition: Stable Scripts Ketorolac Tromethamine (Ketorolac Tromethamine) 10 Mg Tablet 10 MG PO BID for 5 Days, #10 TAB Prov: WILLIAM NEWBY 02/22/24 Additional Instructions: Please follow up with your primary care doctor in 2-3 days for repeat evaluation. Return to the ER for any new or worsening symptoms Referrals: TYSHAWN OLIVA MD (PCP) Time of Disposition: 14:49 I have reviewed the case, and I agree with, Diagnosis and Plan I performed the substantive portion of the visit. I have reviewed and personally made and approve the management plan that is documented in the note by myself or the BUT[facility]. I acknowledge for responsibility for the patient's management plan. WILLIAM NEWBY Feb 22, 2024 14:51
[2024-02-22] MEDS: predniSONE 20 MG TABLET PO ONE (15:00)
--- NOTE | 2024-02-22 15:11 | HMCIMG ---
FOOT COMP 3+VWS LT HISTORY: Left foot pain COMPARISON: None TECHNIQUE: 3 images of left foot were obtained. FINDINGS: There is ulnar deviation of third, fourth and fifth toes limiting evaluation. There is a small calcaneal spur. Joint space narrowings are seen. This is a suboptimal study. There is shortening of fourth metatarsal bone. There is no acute displaced fracture or dislocation. Degenerative changes are seen. IMPRESSION: 1. Findings as described above.
== END 2024-02-22 15:12 | disposition home or self-care (01) ==
LOC: EDH 14:06
DX: M10.9 Gout, unspecified (principal); I25.10 Atherosclerotic heart disease of native coronary artery without angina pectoris; E78.00 Pure hypercholesterolemia, unspecified; I10 Essential (primary) hypertension; Z88.8 Allergy status to other drugs, medicaments and biological substances; Z91.041 Radiographic dye allergy status; Z95.5 Presence of coronary angioplasty implant and graft
CPT/HCPCS: 99284; 73630; 96372 ×2; J2270; J1885

== ENCOUNTER 2024-03-04 19:12 | Emergency (ER) | payer MEDICARE ==
[~2024-03-04] VITALS: Ht 174 cm; Wt 84.4 kg
[~2024-03-04 19:12] MED LIST changes: +KETO10TA2 PO
[2024-03-04 19:15] VITALS: TEMP 98.2
[2024-03-04] MEDS: 0.9%NACL 1000ML 1,000 ML IV ONE (19:38)
[2024-03-04 19:42] LABS: BASOPHILS # (AUTO) 0.08 K/uL (0.00-0.20); BASOPHILS % (AUTO) 0.6 % (0.0-5.0); EOSINOPHILS # (AUTO) 0.14 K/uL (0.00-0.70); EOSINOPHILS % (AUTO) 1.1 % (0.0-8.0); HEMATOCRIT 28.6 % (42-54); IMMATURE GRANULOCYTE ABSOLUTE 0.08 K/uL (0-1); LYMPHOCYTES # (AUTO) 1.6 K/uL (1.0-4.8); LYMPHOCYTES % (AUTO) 11.8 % (21.0-51.0); MEAN CORPUSCULAR HEMOGLOBIN 32.1 pg (27.0-33.0); MEAN CORPUSCULAR HGB CONC 33.9 g/dL (32.0-36.0); MEAN CORPUSCULAR VOLUME 94.7 fL (79-99); MONOCYTES # (AUTO) 0.9 K/uL (0.1-1.0); MONOCYTES % (AUTO) 6.7 % (3.0-13.0); NEUTROPHILS # (AUTO) 10.5 K/uL (1.8-7.7); NEUTROPHILS % (AUTO) 79.2 % (40.0-77.0); PLATELET COUNT (AUTO) 487 K/uL (130-400); RED BLOOD CELL COUNT(AUTO) 3.02 MIL/uL (4.50-6.20); WHITE BLOOD COUNT (AUTO) 13.2 K/uL (4.8-10.8)
[2024-03-04 19:55] LABS: CREATININE 1.1 mg/dL (0.5-1.3); POTASSIUM 5.1 mmol/L (3.5-5.1)
--- NOTE | 2024-03-04 20:11 | HMCIMG ---
Exam: NONCONTRAST CT BRAIN REASON: fall. COMPARISON: None. TECHNIQUE: Images are obtained from vertex to the skull base. The exam was performed without IV contrast. FINDINGS: There is normal appearing brain parenchyma. There are no focal mass lesions. There is is no evidence of intracranial hemorrhage or acute stroke. Ventricles and sulci appear normal. Posterior fossa and brainstem structures are unremarkable. Paranasal sinuses and remaining extracranial soft tissues appear normal as well. IMPRESSION: 1. Normal noncontrast CT brain. CT was performed with one or more following dose reduction techniques: automated exposure control, adjustment of the mA and kv according to patient's size, or use of a iterative reconstruction technique.
--- NOTE | 2024-03-04 20:14 | HMCIMG ---
CT CERVICAL SPINE W/O CONTRAST REASON: fall COMPARISON: None TECHNIQUE: Images are obtained from skull base to the upper thoracic spine in the axial plane. Sagittal and coronal reconstruction images were then performed. FINDINGS: There are normal appearing vertebral bodies. Alignment is unremarkable and disc interspace heights are well preserved. There is no evidence of fracture or subluxation. Soft tissues appear normal as well. IMPRESSION: 1. Mild cervical degenerative change. 2. No acute finding, no evidence of fracture. CT was performed with one or more following dose reduction techniques: automated exposure control, adjustment of the mA and kv according to patient's size, or use of a iterative reconstruction technique.
--- NOTE | 2024-03-04 20:25 | HMCIMG ---
FOOT COMP 3+VWS RT REASON: fall, injury TECHNIQUE: 3 views were obtained. FINDINGS: There is no evidence of fracture or dislocation. There is no joint effusion. The soft tissues appear unremarkable. There is no evidence of a radiopaque foreign body. There is mild hallux valgus with degenerative change in the first MTP joint. IMPRESSION: No acute findings.
--- NOTE | 2024-03-04 20:27 | HMCIMG ---
FOOT COMP 3+VWS LT REASON: fall, injury TECHNIQUE: 3 views were obtained. FINDINGS: There is mild hallux valgus. 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 There are no fractures. There are no acute findings. IMPRESSION: No acute findings.
--- NOTE | 2024-03-04 20:29 | HMCIMG ---
KNEE 3 VW BILATERAL REASON: fall, injury COMPARISON: None TECHNIQUE: 3 views are obtained of each knee. FINDINGS: Right knee shows mild medial joint space narrowing consistent with early osteoarthritis. Lateral and patellofemoral joint spaces are preserved. There are no focal osseous lesions. There is no evidence of joint effusion. Left knee shows normal-appearing joint spaces. Alignment is normal. There are no fractures. Soft tissues are unremarkable. IMPRESSION: 1. Mild medial joint space narrowing consistent with osteoarthritis, present on the right. 2. Normal findings on the left.
[2024-03-04 21:23] VITALS: BP 118/73; PULSE 63; RESP 20; O2SAT 96
--- NOTE | 2024-03-04 21:27 | ERN ---
General Chief Complaint: Mechanical Fall Stated Complaint: MECHANICAL FALL, -LOC, -ANTICOAGULANTS Time Seen by MD: 19:14 History of Present Illness Initial Comments 74-year-old male brought in by EMS for a fall. Patient reports he felt a bit dizzy possibly due to standing up quickly and he had a fall. He reports headache and bilateral paraspinal pain in the cervical spine. He reports that he gets these dizzy episodes quite often and has been worked up before for them. He denies any neurologic deficits, preceding symptoms, palpitations, chest pains, or any other complaints. Currently he denies any pain. He reports that his family wanted him to get checked out due to the fall. Allergies: Coded Allergies: Iodine and Iodide Containing Produc (Unverified Allergy, Unknown, 07/01/16) Home Meds Active Scripts Ketorolac Tromethamine (Ketorolac Tromethamine) 10 Mg Tablet, 10 MG PO BID for 5 Days, #10 TAB Prov:WILLIAM NEWBY 02/22/24 Cephalexin Monohydrate (Keflex) 500 Mg Cap, 1 CAP PO BID for 10 Days, #20 CAP 0 Refills Prov:EBER MURPHY MD 11/22/23 Acetaminophen (Acetaminophen) 500 Mg Tablet, 500 MG PO TIDP PRN for PAIN, #30 TAB Prov:FAY PADILLA 10/01/23 Famotidine (Pepcid) 20 Mg Tablet, 20 MG PO BID, #60 TAB 2 Refills Prov:TRINIDAD GODINEZ Sr., MD 11/17/22 Reported Medications Ranolazine (Ranolazine ER) 500 Mg Tab.er.12h, 500 MG PO BID PRN for CHEST PAIN, TAB 09/26/23 Ergocalciferol (Vitamin D2) (Vitamin D2) 1,250 Mcg (68198 Unit) Capsule, 1250 MCG PO 2/week, CAP 09/26/23 Sertraline HCl (Sertraline HCl) 50 Mg Tablet, 50 MG PO AM, TAB 09/26/23 Hydrocodone/Acetaminophen (Hydrocodon-Acetaminophn 10-325) 10 Mg-325 Mg Tablet, 1 EACH PO AD PRN for PAIN, TAB 03/18/23 Midodrine HCl (Midodrine HCl) 10 Mg Tablet, 10 MG PO AM, TAB 24 Fluticasone/Umeclidin/Vilanter (Trelegy Ellipta 100-62.5-25) 100-62.5 Blst.w.dev, 1 EACH IH AD 07/11/22 Ropinirole HCl (Ropinirole HCl) 0.5 Mg Tablet, 0.5 MG PO HS, TAB 07/11/22 Tamsulosin HCl (Flomax) 0.4 Mg Cap.er.24h, 0.4 MG PO AM, CAPSULE. 02/01/22 Rosuvastatin Calcium (Rosuvastatin Calcium) 40 Mg Tablet, 40 MG PO HS, TAB 02/01/22 Allopurinol (Allopurinol) 300 Mg Tablet, 300 MG PO AM, TAB 09/09/20 Past Medical History Past Medical History: Asthma, CAD, High Cholesterol, Heart Disease, Hypertension, [place], Other Medical History Other: GOUT" Past Surgical History: Appendectomy, Other Surgical History Other: CARDIAC STENTS POST [place], SKIN GRAFTS BILATERAL FEET Family History Family History: Negative Social History Social History: Negative, Lives with family ROS Dictation CONSTITUTIONAL: No chills, no fever, no weakness, no diaphoresis, no malaise. HEAD/FACE: No signs of trauma. EENT: No eye pain, no blurred vision, no tearing, no double vision, no ear pain, no ear discharge, no nose pain, no nasal congestion, no throat pain, no throat swelling, no mouth pain. RESPIRATORY: No cough, no orthopnea, no SOB, no stridor, no wheezing. CARDIOVASCULAR: No chest pain, no edema, no palpitations, no syncope. GASTROINTESTINAL/ABDOMINAL: No abdominal pain, no constipation, no diarrhea, no nausea, no vomiting. GENITOURINARY: No abnormal discharge, no dysuria, no frequent urination, no hematuria. No complaints of pain in the genitals. MUSCULOSKELETAL: Neck pain INTEGUMENTARY: No change in color, no change in hair/nails, no dryness, no lesion, no lumps, no rash. NEUROLOGICAL/PSYCH: No neurologic deficits, he does report a mild headache HEMATOLOGIC/LYMPHATIC: Not anemic, no history of blood clots, no apparent bleeding, no bruising, glands not swollen. All Systems Negative, Except as Noted. Physical Exam Physical Exam Dictation VITAL SIGNS: Reviewed. GENERAL APPEARANCE: Alert, oriented x3, no acute distress HEAD AND FACE: Non-traumatic. EYES: PERRL, pink conjunctivas, eyelid no trauma, anterior chamber clear. EARS: Pinnas intact and no signs of trauma or erythema. Ear canals clear and no discharge. TMs no erythema. NOSE: No discharge, no bleeding. OROPHARYNX: Mouth normal, teeth no caries, tongue pink. Pharynx clear, no erythema. Tonsils no exudates, no abscesses noted. Mucous membrane moist. NECK: Supple, non-tender, no thyromegaly, no masses, no JVD, no bruits. BREAST: Deferred. CHEST: No tenderness, no crepitus, no paradoxical movement, no retractions. LUNGS: Clear, well-ventilated, symmetric, no rales, no wheezing, no rhonchi, no stridor, good breath sounds bilaterally. HEART: Regular rate, regular rhythm, no murmur, no gallops. VASCULAR: No peripheral edema. ABDOMEN: Soft, positive bowel sounds, nondistended, no guarding, nontender, no rebound, no masses no hepatomegaly, no splenomegaly, no Barr's sign, no hernias. RECTAL: Deferred. GENITAL: Deferred. NEUROLOGICAL: Normal speech, gross motor function intact, gross sensory function intact. MUSCULOSKELETAL: Neck nontender, full range of motion, back nontender, full range of motion. EXTREMITIES: Nontender, full range of motion. SKIN: Color pink, dry, no turgor, no rash, no lacerations, no abrasions, no contusions. LYMPHATICS: Deferred. Results Laboratory and Microbiology Lab and Micro Result Laboratory Tests Test 03/04/24 19:37 White Blood Count 13.2 K/uL (4.8-10.8) H Red Blood Count 3.02 MIL/uL (4.50-6.20) L Hemoglobin 9.7 g/dL (14.0-18.0) L Hematocrit 28.6 % (42-54) L Mean Corpuscular Volume 94.7 fL (79-99) Mean Corpuscular Hemoglobin 32.1 pg (27.0-33.0) Mean Corpuscular Hemoglobin Concent 33.9 g/dL (32.0-36.0) Red Cell Distribution Width 17.0 % (11.0-15.5) H Platelet Count 487 K/uL (130-400) H Mean Platelet Volume 9.9 fL (7.5-10.5) Immature Granulocyte % (Auto) 0.6 % (0-1) Neutrophils (%) (Auto) 79.2 % (40.0-77.0) H Lymphocytes (%) (Auto) 11.8 % (21.0-51.0) L Monocytes (%) (Auto) 6.7 % (3.0-13.0) Eosinophils (%) (Auto) 1.1 % (0.0-8.0) Basophils (%) (Auto) 0.6 % (0.0-5.0) Neutrophils # (Auto) 10.5 K/uL (1.8-7.7) H Lymphocytes # (Auto) 1.6 K/uL (1.0-4.8) Monocytes # (Auto) 0.9 K/uL (0.1-1.0) Eosinophils # (Auto) 0.14 K/uL (0.00-0.70) Basophils # (Auto) 0.08 K/uL (0.00-0.20) Absolute Immature Granulocyte (auto 0.08 K/uL (0-1) Nucleated Red Blood Cells 0.0 % (0.0-0.19) Sodium Level 141 mmol/L (136-145) Potassium Level 5.1 mmol/L (3.5-5.1) Chloride Level 107 mmol/L (101-111) Carbon Dioxide Level 28 mmol/L (21-32) Blood Urea Nitrogen 21 mg/dL (7-18) H Creatinine 1.1 mg/dL (0.5-1.3) Glomerular Filtration Rate Calc 70 mL/min (>90) Random Glucose 104 mg/dL (70-105) Total Calcium 8.7 mg/dL (8.5-10.1) Total Creatine Kinase 92 U/L (21-232) # Troponin I High Sensitivity 7.3 ng/L (4-75) MDM CC: Dizziness and fall Historian: Patient Comorbidities: FL with stent placement, hypertension, dyslipidemia. Denies blood thinners. Limitations by social determinants of health: None Differential diagnosis: Brain bleed, fracture, injury, cardiac disorder, electrolyte abnormality, other. Complicated medical patient. Vital signs: In the stable, remained stable here in the ER. Clinical exam shows a normal neurologic status and no obvious major injuries. CBC shows mild leukocytosis [id number] left shift. No bands. He does have a normocytic anemia with a hemoglobin of 9.7. Chemistry panel is normal. Electrolytes normal. Creatinine normal. Troponin is normal. Bilateral knee x-ray per my independent interpretation shows no acute fractures. There was some arthritis. Head CT per my independent interpretation shows no acute bleeding or fractures Bilateral foot x-ray per my independent interpretation shows no acute fractures. Cervical spine CT per my independent interpretation shows no acute fractures. There is some degenerative changes. No dangerous findings on the patient's workup. It since he has had some dizziness and complaint of a fall, I did offer admission, with the patient reports that he feels better and would like to go home. He wanted to make sure he had no injuries. ORDERING PHYSICIAN: PAUL YOO DO PROCEDURE: C SPIN WO - CT CERVICAL SPINE W/O CONTRAST CT CERVICAL SPINE W/O CONTRAST REASON: fall COMPARISON: None TECHNIQUE: Images are obtained from skull base to the upper thoracic spine in the axial plane. Sagittal and coronal reconstruction images were then performed. FINDINGS: There are normal appearing vertebral bodies. Alignment is unremarkable and disc interspace heights are well preserved. There is no evidence of fracture or subluxation. Soft tissues appear normal as well. IMPRESSION: 1. Mild cervical degenerative change. 2. No acute finding, no evidence of fracture. REASON: fall, injury ORDERING PHYSICIAN: PAUL YOO DO PROCEDURE: FT 3VW RT - FOOT COMP 3+VWS RT FOOT COMP 3+VWS RT REASON: fall, injury TECHNIQUE: 3 views were obtained. FINDINGS: There is no evidence of fracture or dislocation. There is no joint effusion. The soft tissues appear unremarkable. There is no evidence of a radiopaque foreign body. There is mild hallux valgus with degenerative change in the first MTP joint. IMPRESSION: No acute findings. REASON: fall, injury ORDERING PHYSICIAN: PAUL YOO DO PROCEDURE: FT 3VW LT - FOOT COMP 3+VWS LT FOOT COMP 3+VWS LT REASON: fall, injury TECHNIQUE: 3 views were obtained. FINDINGS: There is mild hallux valgus. 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 There are no fractures. There are no acute findings. IMPRESSION: No acute findings. REASON: fall ORDERING PHYSICIAN: PAUL YOO DO PROCEDURE: HEAD WO - CT HEAD/BRAIN W/O CONTRAST Exam: NONCONTRAST CT BRAIN REASON: fall. COMPARISON: None. TECHNIQUE: Images are obtained from vertex to the skull base. The exam was performed without IV contrast. FINDINGS: There is normal appearing brain parenchyma. There are no focal mass lesions. There is is no evidence of intracranial hemorrhage or acute stroke. Ventricles and sulci appear normal. Posterior fossa and brainstem structures are unremarkable. Paranasal sinuses and remaining extracranial soft tissues appear normal as well. IMPRESSION: 1. Normal noncontrast CT brain. REASON: fall, injury ORDERING PHYSICIAN: PAUL YOO DO PROCEDURE: KNEE 3VBIL - KNEE 3 VW BILATERAL KNEE 3 VW BILATERAL REASON: fall, injury COMPARISON: None TECHNIQUE: 3 views are obtained of each knee. FINDINGS: Right knee shows mild medial joint space narrowing consistent with early osteoarthritis. Lateral and patellofemoral joint spaces are preserved. There are no focal osseous lesions. There is no evidence of joint effusion. Left knee shows normal-appearing joint spaces. Alignment is normal. There are no fractures. Soft tissues are unremarkable. IMPRESSION: 1. Mild medial joint space narrowing consistent with osteoarthritis, present on the right. 2. Normal findings on the left. ED Course Orders Procedure Category Date Status Time Ct Head/Brain W/O CT 03/04/24 Resulted Contrast 19:25 Ct Cervical Spine W/O CT 03/04/24 Resulted Contrast 19:25 Knee 3 Vw Bilateral RAD 03/04/24 Resulted 19:25 Foot Comp 3+Vws Rt RAD 03/04/24 Resulted 19:25 Foot Comp 3+Vws Lt RAD 03/04/24 Resulted 19:25 Cardiac Panel LAB 03/04/24 Complete 19:25 Cbc With Differential LAB 03/04/24 Complete 19:25 Basic Metabolic Panel LAB 03/04/24 Complete 19:25 0.9%Nacl 1000ml (Ns PHA 03/04/24 Complete 1000ml) 19:30 12 Lead Ekg Tracing- EKG 03/04/24 Logged Technical 21:24 Current Medications Medications (Trade) Dose Ordered Sig/Jose Route PRN Reason Start Time Stop Time Status Last Admin Dose Admin Sodium Chloride 1,000 ml @ 0 mls/hr ONCE ONCE IV 03/04/24 19:30 03/04/24 19:31 DC 03/04/24 19:38 Vital Signs Date Time Temp Pulse Resp B/P (MAP) Pulse Ox O2 Delivery O2 Flow Rate FiO2 03/04/24 21:23 63 20 118/73 96 Room Air* 0 21 03/04/24 20:23 62 18 117/71 96 Room Air* 0 21 03/04/24 19:15 98.2 65 16 114/74 96 Room Air 0 03/04/24 19:14 98.2 65 16 114/74 96 Room Air* 0 21 DX & DISP Disposition: Discharge Departure Impression: Primary Impression: Fall at home Additional Impressions: Musculoskeletal pain, Normocytic anemia, Dizziness Condition: Stable Additional Instructions: There are no dangerous findings on your workup here today. Your symptoms are consistent with musculoskeletal type pain. There are no signs of fractures or major injuries. The CT scan of your brain and cervical spine are unremarkable. Your knee and feet x-rays do show some mild arthritis but there are no acute fractures or injuries. Your EKG is normal. Your blood work (CBC, BMP, CK, troponin) does show mild low hemoglobin (anemia) but is otherwise unremarkable. You can take [id number] Tylenol or ibuprofen as needed for pain or discomfort. Please return to the emergency department as needed. Referrals: TYSHAWN OLIVA MD (PCP) PAUL YOO DO Mar 04, 2024 21:27
--- NOTE | 2024-03-05 06:43 | EKG ---
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
== END 2024-03-04 21:53 | disposition home or self-care (01) ==
LOC: EDH 19:12
DX: R42 Dizziness and giddiness (principal); R51.9 Headache, unspecified; M54.2 Cervicalgia; D64.9 Anemia, unspecified; E78.00 Pure hypercholesterolemia, unspecified; I10 Essential (primary) hypertension; J45.909 Unspecified asthma, uncomplicated; Z88.8 Allergy status to other drugs, medicaments and biological substances; Z90.49 Acquired absence of other specified parts of digestive tract; Z91.041 Radiographic dye allergy status; Z95.5 Presence of coronary angioplasty implant and graft; W18.39XA Other fall on same level, initial encounter; Y93.89 Activity, other specified; Y92.89 Other specified places as the place of occurrence of the external cause; Y99.8 Other external cause status
CPT/HCPCS: 36415; 70450; 72125; 73630; 80048; 82550; 84484; 85025; 93005; 99284; 99285

== ENCOUNTER 2024-04-21 20:44 | Emergency (ER) | payer OTHER, MEDICARE ==
[~2024-04-21] VITALS: Ht 175.3 cm; Wt 84.4 kg
[~2024-04-21 20:44] MED LIST changes: +OSEL75 PO
[2024-04-21 21:29] VITALS: BP 121/58; PULSE 64; RESP 15; TEMP 98.6; O2SAT 96
[2024-04-21] MEDS: teTANUS/diphthERIA TOXOID [ADULT] 0.5 ML VIAL IM ONE (21:39)
--- NOTE | 2024-04-21 21:48 | ERN ---
ED Note History of Present Illness Stated Complaint: LACERATION TO R GREAT TOE Chief Complaint: Laceration/Avulsion Time Seen by MD: 21:10 Dictation: This is a 74-year-old male who presented to the emergency room for evaluation of an injury on the plantar surface of his great toe with bleeding that just happened prior to presentation to the ER. He stated that he was unloading a rice drier and he had sandals on in the right sandal came off and the right toe injured with metal plate on the ramp. He did not fall no history of loss of consciousness and he noted that there was some bleeding from the injury and he placed toilet tissue and came to ER for evaluation. He is not on any blood thinners. He takes only antihypertensive medication. Temperature 98.8 pulse 66 respirations 16 blood pressure 113/54 with a pulse oximetry of 96% on room air Chronic medical problems include gout, asthma, hypertension, coronary artery disease status post stents Allergies: Coded Allergies: Iodine and Iodide Containing Produc (Unverified Allergy, Unknown, 07/01/16) Home Meds Active Scripts Oseltamivir Phosphate (Tamiflu) 75 Mg Cap, 1 CAP PO BID for 5 Days, #10 CAP 0 Refills Prov:JESI PRICE MD 03/29/24 Ketorolac Tromethamine (Ketorolac Tromethamine) 10 Mg Tablet, 10 MG PO BID for 5 Days, #10 TAB Prov:WILLIAM NEWBY 02/22/24 Cephalexin Monohydrate (Keflex) 500 Mg Cap, 1 CAP PO BID for 10 Days, #20 CAP 0 Refills Prov:EBER MURPHY MD 11/22/23 Acetaminophen (Acetaminophen) 500 Mg Tablet, 500 MG PO TIDP PRN for PAIN, #30 TAB Prov:FAY PADILLA 10/01/23 Famotidine (Pepcid) 20 Mg Tablet, 20 MG PO BID, #60 TAB 2 Refills Prov:TRINIDAD GODINEZ Sr., MD 11/17/22 Reported Medications Ranolazine (Ranolazine ER) 500 Mg Tab.er.12h, 500 MG PO BID PRN for CHEST PAIN, TAB 09/26/23 Ergocalciferol (Vitamin D2) (Vitamin D2) 1,250 Mcg (98809 Unit) Capsule, 1250 MCG PO 2/week, CAP 8/12/24 Sertraline HCl (Sertraline HCl) 50 Mg Tablet, 50 MG PO AM, TAB 09/26/23 Hydrocodone/Acetaminophen (Hydrocodon-Acetaminophn 10-325) 10 Mg-325 Mg Tablet, 1 EACH PO BID PRN for MODERATE PAIN (4-6), TAB 03/18/23 Midodrine HCl (Midodrine HCl) 10 Mg Tablet, 10 MG PO AM, TAB 03/18/23 Fluticasone/Umeclidin/Vilanter (Trelegy Ellipta 100-62.5-25) 100-62.5 Blst.w.dev, 1 EACH IH AD 07/11/22 Ropinirole HCl (Ropinirole HCl) 0.5 Mg Tablet, 0.5 MG PO HS, TAB 07/11/22 Tamsulosin HCl (Flomax) 0.4 Mg Cap.er.24h, 0.4 MG PO AM, CAPSULE.DR 02/01/22 Rosuvastatin Calcium (Rosuvastatin Calcium) 40 Mg Tablet, 40 MG PO HS, TAB 02/01/22 Allopurinol (Allopurinol) 300 Mg Tablet, 300 MG PO AM, TAB 09/09/20 Past Medical History Past Medical History: Asthma, CAD, Hypertension, [place] Additional Past Medical Hx: GOUT" Surgical History: Other Surgical History Other: STENTS Family History: Negative Social History: Negative, Lives with family RN Note Reviewed/Agreed w/PFSH: Yes Review of System Dictation Constitutional: Negative for fever,chills, and weight loss Eyes: Negative for injury, pain,redness, and discharge ENT: Negative for injury,pain or swelling Cardiovascular: Negative for chest pain, palpitations, and edema Respiratory: Negative for shortness of breath, cough, and wheezing, Abdomen/GI: Negative for abdominal pain, nausea, vomiting, diarrhea, and constipation Back: Negative for injury and pain : Negative for injury, bleeding and discharge MS/Extremity: Negative for injury and deformity as described in the history of present illness Skin: Negative for rash, and discoloration Neuro: Negative for headache, weakness, numbness, tingling, and seizure Psych: Negative for suicide ideation, homicidal ideation, and hallucinations Initial Vital Sign VS Vital Signs Date Time Temp Pulse Resp B/P (MAP) Pulse Ox O2 Delivery O2 Flow Rate FiO2 04/21/24 20:47 98.8 66 16 113/54 96 Room Air 0 04/21/24 21:29 21 Physical Exam Dictation General: awake, alert, NAD looks much older than his stated age Head/Face: Normocephalic, atraumatic Eyes: PERRL, EOMI, vision at baseline ENT: oral cavity clear, TMs clear, no signs of infection Neck: Trachea midline, supple, no nuchal rigidity Cardiovascular: RRR, normal S1/S2, No MRGs, no JVD Respiratory: CTAB, no respiratory distress, No rales or wheezes Abdomen: Soft, non-tender, non-distended, normal bowel sounds, no guarding or rebound. Skin: Warm, dry, normal turgor, no rash MS/Extremity: Pulses equal, no cyanosis, neurovascular intact, FROM right foot on the plantar surface 1 in below the great toe a v-shaped laceration which is less than half an inch with small amounts of hematoma underneath the skin. Neuro: COAx4, GCS 15, strength 5/5, CN 2-12 intact, normal cerebellar exam, normal gait, Psych: Normal behavior, mood, and affect normal Extremities-trace edema without any palpable cords, Homans sign is negative Results (Laboratory/Radiology) Labs Reviewed?: Yes ED Course ED Course Orders Procedure Category Date Status Time Tetanus,Diphtheria PHA 04/21/24 Complete Tox [Adult] (Diphther 21:30 Foot Comp 3+Vws Rt RAD 04/21/24 Logged 21:12 Current Medications Medications (Trade) Dose Ordered Sig/Jose Route PRN Reason Start Time Stop Time Status Last Admin Dose Admin Tetanus/ Diphtheria Toxoids Adsorbed (DiphthERIA-teTANUS TOXOID [ADULT]/ DECAVAC) 0.5 ml ONCE ONCE IM 04/21/24 21:30 04/21/24 21:31 DC Vital Signs Date Time Temp Pulse Resp B/P (MAP) Pulse Ox O2 Delivery O2 Flow Rate FiO2 04/21/24 21:29 98.6 64 15 121/58 96 Room Air* 0 21 04/21/24 20:47 98.8 66 16 113/54 96 Room Air 0 We will perform imaging and administer medications according to the patient's complaint. Once the results are available, will review and personally interpreted the labs to rule out any acute life-threatening emergency the trach require immediate intervention and treatment. I will then re-evaluate the patient after treatment and diagnostic exams have return to determine whether the patient requires any further testing, can safely be discharged home or need further admission to hospital for additional treatment and evaluation. Tetanus shot and x-ray of the foot Thorough wound cleansing and see if the edges can be apposed 9:45 p.m. charge nurse notified me that patient's daughter came and basically indicated that they would not want anything else done and they want to leave AMA Medical Decision Making MDM MDM: Differential diagnosis: Superficial laceration, impacted metal particles, injury to the muscle Rationale: Tests considered and ordered secondary to shared decision making include: Previous outside records reviewed: Old ER visits. Risk of complication and/or morbidity or mortality of patient management: None Medications-Per medication reconciliation Need for hospitalization: Patient does not meet criteria for hospitalization. Need for emergency major/minor surgery: No There are no social concerns with this patient. Prescription drug management Prescriptions will include symptomatic care Patient's prior external medical records from other ER visits were reviewed by me as indicated. Prior testing and results from previous visits were reviewed. Prior tests were taken into account with medical decision making and resource utilization, independent historian/historians were used to obtain complete [facility] history. I independently interpreted the test that were performed, results were reviewed by me and considered findings on radiology if ordered. Medical management and examination interpretation discussions were had by me with other qualified healthcare professionals as indicated for the patient's care. Procedure Procedure Dictation: Patient did not want to wait until the x-ray can be done but was open to only wound cleansing and dressing. Wound Location: lower extremity Wound's Depth, Shape: superficial Wound Explored: no foreign body removed Irrigated w/ Saline (ccs): 15 Problem List Problem List: (1) Laceration of foot, right DX & DISP Disposition: AMA Departure Impression: Primary Impression: Laceration of foot, right Condition: Stable Additional Instructions: Patient left AMA before x-ray could be done or any measures to the wound. He did agree to cleansing of the wound and a dressing. Patient signed out against medical advice from the emergency room. As per the primary nurse patient does not wish to continue any treatment at this time and is refusing to stay and complete the evaluation and disposition. The patient is fully aware of all the risks and benefits of leaving against medical advice. Possible benefits include correction of the current medical condition and improvement of symptoms. However the patient was advised the possible risks of leaving against medical advice include worsening of the current medical condition, including or causing . The patient and caregiver verbalized understanding of the risks and benefits discussed and despite this, the patient has signed out against medical advice. Please refer to the nursing documentation for further details. Patient has was advised to follow up at least with their primary care physician as soon as possible or return to the emergency department if symptoms worsen Referrals: TYSHAWN OLIVA MD (PCP) ISMAEL MARAVILLA MD Apr 21, 2024 21:48
== END 2024-04-21 21:55 | disposition left against medical advice (07) ==
LOC: EDH 20:44
DX: S91.311A Laceration without foreign body, right foot, initial encounter (principal); I10 Essential (primary) hypertension; J45.909 Unspecified asthma, uncomplicated; Z88.8 Allergy status to other drugs, medicaments and biological substances; Z91.041 Radiographic dye allergy status; X58.XXXA Exposure to other specified factors, initial encounter; Y93.89 Activity, other specified; Y92.89 Other specified places as the place of occurrence of the external cause; Y99.8 Other external cause status
CPT/HCPCS: 12001; 90471; 90714; 99283

== ENCOUNTER → 2024-08-07 | Outpatient (CLI) | payer MEDICARE ==
[~2024-08-07] MED LIST changes: -TAMS-1 PO; +TAMS-55 PO
[2024-08-07] MEDS: REGADENOSON 0.4 MG/5 ML PF SYG IVP ONE (10:19)
== END | disposition home or self-care (01) ==
LOC: SHCH 08:15
PROVIDERS: ATTEND Internal Medicine Cardiovascular Disease
DX: I10 Essential (primary) hypertension (principal); R94.4 Abnormal results of kidney function studies; R06.00 Dyspnea, unspecified; Z79.899 Other long term (current) drug therapy
CPT/HCPCS: 78452; 93017; J2785; A9500 ×2

== ENCOUNTER 2024-09-27 13:08 | Emergency (ER) | payer MEDICARE ==
[~2024-09-27] VITALS: Ht 170.2 cm; Wt 80.3 kg
--- NOTE | 2024-09-27 13:46 | EKG ---
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
[2024-09-27 14:04] LABS: IMMATURE GRANULOCYTE ABSOLUTE 0.03 K/uL (0-1); NUCLEATED RED BLOOD CELLS 0.0 % (0.0-0.19); PLATELET COUNT (AUTO) 314 K/uL (130-400); RED BLOOD CELL COUNT(AUTO) 3.45 MIL/uL (4.50-6.20); RED CELL DISTRIBUTION WIDTH 14.8 % (11.0-15.5); WHITE BLOOD COUNT (AUTO) 6.9 K/uL (4.8-10.8)
[2024-09-27 14:26] LABS: CREATINE KINASE, TOTAL 19.0 U/L (21-232); CREATININE 1.1 mg/dL (0.5-1.3); GLOMERULAR FILTR. RATE CALC 70.0 mL/min (>90); GLUCOSE,RANDOM 105.0 mg/dL (70-105); SODIUM SERUM 142.0 mmol/L (136-145); UREA NITROGEN, BLOOD 22.0 mg/dL (7-18)
--- NOTE | 2024-09-27 15:05 | HMCIMG ---
CHEST 1VW REASON: cp COMPARISON: Prior study from 03/29/2024 is available. FINDINGS: Single view of the chest was obtained. Lungs are clear. Heart size is normal. There is no pulmonary vascular congestion. Mediastinum and bony thorax appear unremarkable. The study is unchanged from prior study. IMPRESSION: 1. Normal single view chest x-ray.
--- NOTE | 2024-09-27 15:44 | ERN ---
General Chief Complaint: Chest Pain Stated Complaint: CP Time Seen by MD: 13:10 Source: patient, EMS History of Present Illness Initial Comments Patient is a 74-year-old male coming in after being sent by Dr. 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 Per patient he has a extensive history of orthostatic hypotension which has been ongoing for some time. Per patient he was sent in for further evaluation. Allergies: Coded Allergies: Iodine and Iodide Containing Produc (Unverified Allergy, Unknown, 07/01/16) Home Meds Active Scripts Oseltamivir Phosphate (Tamiflu) 75 Mg Cap, 1 CAP PO BID for 5 Days, #10 CAP 0 Refills Prov:JESI PRICE MD 03/29/24 Ketorolac Tromethamine (Ketorolac Tromethamine) 10 Mg Tablet, 10 MG PO BID for 5 Days, #10 TAB Prov:WILLIAM NEWBY 02/22/24 Cephalexin Monohydrate (Keflex) 500 Mg Cap, 1 CAP PO BID for 10 Days, #20 CAP 0 Refills Prov:EBER MURPHY MD 11/22/23 Acetaminophen (Acetaminophen) 500 Mg Tablet, 500 MG PO TIDP PRN for PAIN, #30 TAB Prov:FAY PADILLA 10/01/23 Famotidine (Pepcid) 20 Mg Tablet, 20 MG PO BID, #60 TAB 2 Refills Prov:TRINIDAD GODINEZ Sr., MD 11/17/22 Reported Medications Ranolazine (Ranolazine ER) 500 Mg Tab.er.12h, 500 MG PO BID PRN for CHEST PAIN, TAB 09/26/23 Ergocalciferol (Vitamin D2) (Vitamin D2) 1,250 Mcg (27143 Unit) Capsule, 1250 MCG PO 2/week, CAP 09/26/23 Sertraline HCl (Sertraline HCl) 50 Mg Tablet, 50 MG PO AM, TAB 09/26/23 Hydrocodone/Acetaminophen (Hydrocodon-Acetaminophn 10-325) 10 Mg-325 Mg Tablet, 1 EACH PO BID PRN for MODERATE PAIN (4-6), TAB 03/18/23 Midodrine HCl (Midodrine HCl) 10 Mg Tablet, 10 MG PO AM, TAB 24 Fluticasone/Umeclidin/Vilanter (Trelegy Ellipta 100-62.5-25) 100-62.5 Blst.w.dev, 1 EACH IH AD 07/11/22 Ropinirole HCl (Ropinirole HCl) 0.5 Mg Tablet, 0.5 MG PO HS, TAB 07/11/22 Tamsulosin HCl (Flomax) 0.4 Mg Cap.er.24h, 0.4 MG PO AM, CAPSULE. 02/01/22 Rosuvastatin Calcium (Rosuvastatin Calcium) 40 Mg Tablet, 40 MG PO HS, TAB 02/01/22 Allopurinol (Allopurinol) 300 Mg Tablet, 300 MG PO AM, TAB 09/09/20 Past Medical History Past Medical History: Anxiety, Asthma, Depression, Hypertension, Other Medical History Other: GOUT, [place] Past Surgical History: Other Surgical History Other: CARDIAC STENTS Family History Family History: Negative Social History Social History: Negative, Lives with family ROS Dictation CONSTITUTIONAL: No chills, no fever, no weakness, no diaphoresis, no malaise. HEAD/FACE: No signs of trauma. EENT: No eye pain, no blurred vision, no tearing, no double vision, no ear pain, no ear discharge, no nose pain, no nasal congestion, no throat pain, no throat swelling, no mouth pain. RESPIRATORY: No cough, no orthopnea, no SOB, no stridor, no wheezing. CARDIOVASCULAR: No chest pain, no edema, no palpitations, no syncope. GASTROINTESTINAL/ABDOMINAL: No abdominal pain, no constipation, no diarrhea, no nausea, no vomiting. GENITOURINARY: No abnormal discharge, no dysuria, no frequent urination, no hematuria. No complaints of pain in the genitals. MUSCULOSKELETAL: No back pain, no gout, no joint pain, no joint swelling, no muscle pain, no muscle stiffness, no neck pain. INTEGUMENTARY: No change in color, no change in hair/nails, no dryness, no lesion, no lumps, no rash. NEUROLOGICAL/PSYCH: No anxiety, not depressed, no emotional problem, no he adache, no numbness, no pre-existing deficit, no history of seizures, no tremors, no weakness. HEMATOLOGIC/LYMPHATIC: Not anemic, no history of blood clots, no apparent bleeding, no bruising, glands not swollen. All Systems Negative, Except as Noted. Physical Exam Physical Exam Dictation VITAL SIGNS: Reviewed. GENERAL APPEARANCE: Alert, oriented x3, no acute distress, obese. HEAD AND FACE: Non-traumatic. EYES: PERRL, pink conjunctivas, eyelid no trauma, anterior chamber clear. EARS: Pinnas intact and no signs of trauma or erythema. Ear canals clear and no discharge. TMs no erythema. NOSE: No discharge, no bleeding. OROPHARYNX: Mouth normal, teeth no caries, tongue pink. Pharynx clear, no erythema. Tonsils no exudates, no abscesses noted. Mucous membrane moist. NECK: Supple, non-tender, no thyromegaly, no masses, no JVD, no bruits. BREAST: Deferred. CHEST: No tenderness, no crepitus, no paradoxical movement, no retractions. LUNGS: Clear, well-ventilated, symmetric, no rales, no wheezing, no rhonchi, no stridor, good breath sounds bilaterally. HEART: Regular rate, regular rhythm, no murmur, no gallops. VASCULAR: No peripheral edema. ABDOMEN: Soft, positive bowel sounds, nondistended, no guarding, nontender, no rebound, no masses no hepatomegaly, no splenomegaly, no Barr's sign, no hernias. RECTAL: Deferred. GENITAL: Deferred. NEUROLOGICAL: Normal speech, gross motor function intact, gross sensory function intact. MUSCULOSKELETAL: Neck nontender, full range of motion, back nontender, full range of motion. EXTREMITIES: Nontender, full range of motion. SKIN: Color pink, dry, no turgor, no rash, no lacerations, no abrasions, no contusions. LYMPHATICS: Deferred. Results Laboratory and Microbiology Lab and Micro Result Laboratory Tests Test 09/27/24 13:56 09/27/24 14:55 09/27/24 15:42 White Blood Count 6.9 K/uL (4.8-10.8) Red Blood Count 3.45 MIL/uL (4.50-6.20) L Hemoglobin 10.8 g/dL (14.0-18.0) L Hematocrit 31.2 % (42-54) L Mean Corpuscular Volume 90.4 fL (79-99) Mean Corpuscular Hemoglobin 31.3 pg (27.0-33.0) Mean Corpuscular Hemoglobin Concent 34.6 g/dL (32.0-36.0) Red Cell Distribution Width 14.8 % (11.0-15.5) Platelet Count 314 K/uL (130-400) Mean Platelet Volume 10.0 fL (7.5-10.5) Immature Granulocyte % (Auto) 0.4 % (0-1) Neutrophils (%) (Auto) 59.0 % (40.0-77.0) Lymphocytes (%) (Auto) 21.1 % (21.0-51.0) Monocytes (%) (Auto) 9.0 % (3.0-13.0) Eosinophils (%) (Auto) 8.9 % (0.0-8.0) H Basophils (%) (Auto) 1.6 % (0.0-5.0) Neutrophils # (Auto) 4.1 K/uL (1.8-7.7) Lymphocytes # (Auto) 1.5 K/uL (1.0-4.8) Monocytes # (Auto) 0.6 K/uL (0.1-1.0) Eosinophils # (Auto) 0.61 K/uL (0.00-0.70) Basophils # (Auto) 0.11 K/uL (0.00-0.20) Absolute Immature Granulocyte (auto 0.03 K/uL (0-1) Nucleated Red Blood Cells 0.0 % (0.0-0.19) Sodium Level 142 mmol/L (136-145) Potassium Level 4.1 mmol/L (3.5-5.1) Chloride Level 107 mmol/L (101-111) Carbon Dioxide Level 28 mmol/L (21-32) Blood Urea Nitrogen 22 mg/dL (7-18) H Creatinine 1.1 mg/dL (0.5-1.3) Glomerular Filtration Rate Calc 70 mL/min (>90) Random Glucose 105 mg/dL (70-105) Total Calcium 8.4 mg/dL (8.5-10.1) L Magnesium Level 1.90 mg/dL (1.80-2.40) Total Creatine Kinase 19 U/L (21-232) #L Troponin I High Sensitivity 10 ng/L (4-75) 10 ng/L (4-75) B-Type Natriuretic Peptide 61 pg/mL (0-100) Urine Color YELLOW (YELLOW) Urine Appearance CLEAR (CLEAR) Urine pH 5.5 (5.0-8.0) Urine Specific [place] 1.017 (1.001-1.031) Urine Protein NEGATIVE mg/dL (NEGATIVE) Urine Glucose (UA) NEGATIVE mg/dL (NEGATIVE) Urine Ketones NEGATIVE mg/dL (NEGATIVE) Urine Occult Blood NEGATIVE (NEGATIVE) Urine Nitrate NEGATIVE (NEGATIVE) Urine Bilirubin NEGATIVE mg/dL (NEGATIVE) Urine Urobilinogen 0.2 mg/dL (0.2-1.0) Urine Leukocyte Esterase NEGATIVE Donnell/uL EKG/XRAY/US/CT/MRI EKG Comment 09/27/2024 time 1:12 p.m. Ventricular rate 58 Sinus rhythm MD [address] wave elevation or depression X-RAY Comment IMAGING REPORT Signed PATIENT: JOSE AYALA MR#: [id number] : 1950 SEX: M AGE: 74 LOCATION: [facility] ORDER 02 STATUS: [facility] ER REPORT#: [id number] SERVICE 140 REASON: cp ORDERING PHYSICIAN: EBER MURPHY MD PROCEDURE: CXR1VW - CHEST 1VW CHEST 1VW REASON: cp COMPARISON: Prior study from 03/29/2024 is available. FINDINGS: Single view of the chest was obtained. Lungs are clear. Heart size is normal. There is no pulmonary vascular congestion. Mediastinum and bony thorax appear unremarkable. The study is unchanged from prior study. IMPRESSION: 1. Normal single view chest x-ray. DICTATED BY: KATIANA AKBAR MD DATE: 09/27/241501 ELECTRONICALLY SIGNED BY: KATIANA AKBAR MD DATE: 09/27/241504 [facility] MDM: Differential diagnosis: Chest wall pain, history of hypotension, Rationale: Tests considered and ordered secondary to shared decision making include: labs, ECG and radiology Previous outside records reviewed: Old ER visits. Risk of complication and/or morbidity or mortality of patient management: None Medications-Per medication reconciliation Need for hospitalization: Patient does meet criteria for hospitalization. Need for emergency major/minor surgery: No Patient is a 74-year-old male coming in with multiple complaints. Per PCP patient was sent over due to multiple complaints. I did go over the findings with PCP per her evaluation patient is okay to go home and follow up as outpatient. EKG cardiac enzymes within normal limits. Patient also states that he has been having the abnormal blood pressure for many years in his on midodrine. I did educate him on proper follow up with PCP. ED Course Orders Procedure Category Date Status Time Cbc With Differential LAB 09/27/24 Complete 13:10 Basic Metabolic Panel LAB 09/27/24 Complete 13:10 12 Lead Ekg Tracing- EKG 09/27/24 Complete Technical 13:10 Troponin I High LAB 09/27/24 Complete Sensitivity 13:10 Magnesium LAB 09/27/24 Complete 13:10 B-Type Natriuretic LAB 09/27/24 Complete Peptide 13:10 Creatine Kinase, Total LAB 09/27/24 Complete 13:10 Urinalysis Profile LAB 09/27/24 In Process 13:10 Chest 1vw RAD 09/27/24 Resulted 14:02 Troponin I High LAB 09/27/24 Complete Sensitivity 14:38 Vital Signs Date Time Temp Pulse Resp B/P (MAP) Pulse Ox O2 Delivery O2 Flow Rate FiO2 09/27/24 16:09 55 17 132/60 97 Room Air* 0 21 09/27/24 14:43 59 17 140/64 99 Room Air* 0 21 09/27/24 13:41 97.2 51 17 132/72 99 Room Air* 0 21 09/27/24 13:11 98.1 65 16 122/52 96 Room Air 0 DX & DISP Disposition: Discharge Departure Impression: Primary Impression: Orthostatic hypotension Additional Impression: Musculoskeletal pain Condition: Stable Additional Instructions: You have been reviewed in the emergency department at [facility] after presenting with chest pain. After considering your history, your risk factors, your EKG and your blood test troponins, have been found to be at very low risk less than (1 in 100) of having a major adverse cardiac event (like heart attack) in the near future. In the " low risk" group, the risks of doing further tests and treatment as the inpatient outweighs the benefits. In many patients in the low risk group for the test of any sort or unnecessary, however he should discuss this further with his general practitioner who will understand the medical and personal backgrounds better. Because we have never declared you" no risk" we would suggest. 1 returning for medical review if you have further episodes of chest pain/arm pain or other concerning symptoms like dizziness, collapse, palpitations or shortness of breath. 2. Following up with your local doctor who will consider the need for further testing and will also ensure that any modifiable risk factors you may have for heart disease are optimally managed. Patient will be discharged in stable condition at the moment discharge patient states , no chest pain Referrals: TYSHAWN OLIVA MD (PCP) Time of Disposition: 16:44 EBER MURPHY MD Sep 27, 2024 15:44
[2024-09-27 16:24] LABS: ADD UA MICROSCOPIC YES; APPEARANCE,URINE CLEAR (CLEAR); GLUCOSE, URINE (UA) NEGATIVE (NEGATIVE); LEUKOCYTE ESTERASE ,URINE NEGATIVE Leu/uL (NEGATIVE); NITRATE,URINE NEGATIVE (NEGATIVE); OCCULT BLOOD,URINE NEGATIVE (NEGATIVE)
[2024-09-27 16:57] VITALS: BP 129/63; PULSE 59; RESP 18; TEMP 98.3; O2SAT 97
== END 2024-09-27 16:58 | disposition home or self-care (01) ==
LOC: EDH 13:08
DX: I95.1 Orthostatic hypotension (principal); M79.18 Myalgia, other site; F32.A Depression, unspecified; F41.9 Anxiety disorder, unspecified; I10 Essential (primary) hypertension; J45.909 Unspecified asthma, uncomplicated; Z88.8 Allergy status to other drugs, medicaments and biological substances; Z95.5 Presence of coronary angioplasty implant and graft
CPT/HCPCS: 36415; 71045; 80048; 81001; 82550; 83735; 83880; 84484; 85025; 93005; 99285